=== PATIENT | female | born 1975 | race Hispanic/Latino ===

== ENCOUNTER 2019-01-26 12:47 | Inpatient (IN) | payer OTHER ==
[~2019-01-26] VITALS: Ht 152.4 cm; Wt 104.6 kg
--- OUTSIDE RECORDS SUMMARY | 2019-01-26 12:50 | XMS REPORT | Clinical Summary ---
Author Author [facility] Address Unknown Phone Unavailable Care Team Providers Care Aviation Ordnance Officer Name Role Phone Asked, No Pcp PCP Unavailable Allergies No Known Allergies Medications End Date Status Medication Sig Dispensed Refills Start Date Active mesalamine (ASACOL) 800 Take 1,600 mg 0 mg EC tablet by mouth 3 (three) times a day. Active cholecalciferol, vitamin Take by mouth 0 D3, (VITAMIN D3) 5,000 Once in unit tablet dialysis. Active aspirin (ECOTRIN) 81 MG Take 81 mg by 0 enteric coated tablet mouth daily. Active icosapent ethyl 1 gram Take 2 g by 0 capsule mouth 2 (two) times a day. Active magnesium amino acid Take by mouth 0 chelate 100 mg tablet once. Active acetaminophen (TYLENOL) Take 500 mg 0 500 MG tablet by mouth as needed for mild pain. Active budesonide (UCERIS) 9 mg Take 9 mg by 0 tablet, delayed & mouth daily. ext.release Active THEANINE ORAL Take 100 mg 0 by mouth. Active Problems Not on file Family History Medical History Relation Name Comments Hyperlipidemia Father Hypertension Father Hyperlipidemia Mother Hypertension Mother Relation Name Status Comments Father Mother Social History Date Tobacco Use Types Packs/Day Years Used Never Smoker Smokeless Tobacco: Never Used Alcohol Use Drinks/Week oz/Week Comments Yes social Sex Assigned at Date Recorded Not on file Industry Job Start Date Occupation Not on file Not on file Not on file Travel End Travel History Travel Start No recent travel history available. Last Filed Vital Signs Not on file Plan of Treatment Not on file Results Not on fileafter 01/25/2018 Insurance Payer Benefit Subscriber ID Type Phone Address Plan / Group AETNA AET[employer] PPO xxxxxxxxxx PPO OPEN CHOICE Advance Directives Patient has advance care planning documents on file. For more information, ai e contact: Robert Elaine [phone] [place] [address]
--- OUTSIDE RECORDS SUMMARY | 2019-01-26 12:51 | XMS REPORT | Summary of Care ---
Author Author [facility] Organization [facility] Address Unknown Phone Unavailable Encounter [facility]) [id number] Date(s): 07/12/16 - 07/21/16 [facility] [address] [place] [address]- Discharge Disposition: Home or Self Care Attending Physician: Rene Lyle MD Admitting Physician: Rene Lyle MD Vital Signs 1 2 3 Most recent to oldest [Reference Range]: 152.4 cm (07/12/16 5:31 PM) 152.4 cm (07/12/16 8:23 AM) Height 78.409 kg (07/16/16 7:24 AM) 80.001 kg (07/15/16 6:56 AM) 79.4 kg (07/14/16 5:29 AM) Current Weight 98.8 DegF (07/21/16 7:49 PM) 98.4 DegF (07/21/16 6:26 PM) 98.8 DegF (07/21/16 12:24 PM) Temperature Oral [96.4-99.1 DegF] 93/63 mmHg (07/21/16 7:49 PM) 93/60 mmHg (07/21/16 6:26 PM) 103/61 mmHg (07/21/16 12:24 PM) Blood Pressure [90-140/60-90 mmHg] 18 BRMIN (07/21/16 7:49 PM) 20 BRMIN (07/21/16 6:26 PM) 20 BRMIN (07/21/16 12:24 PM) Respiratory Rate [14-20 BRMIN] 103 bpm *HI* (07/21/16 7:49 PM) 99 bpm (07/21/16 6:26 PM) 131 bpm *HI* (07/21/16 12:24 PM) Peripheral Pulse Rate [60-100 bpm] 77.273 kg (07/12/16 5:31 PM) 77.273 kg (07/12/16 8:23 AM) Weight 33.27 m2 (07/12/16 5:31 PM) 33.27 m2 (07/12/16 8:23 AM) Body Mass Index Problem List Condition Effective Dates Status Health Status Informant Acute ulcerative Active colitis(Confirmed) Asthma(Confirmed) Resolved Clostridium 07/12/16 Active difficile(Confirmed) 1, 2 Dehydration(Confirme Active d) GERD Resolved (gastroesophageal reflux disease)(Confirmed) Colitis(Confirmed) Resolved Pain(Confirmed) 04/29/12 Active 1STOOL. 07/12/2016 2Problem added by Discern Expert. Allergies, Adverse Reactions, Alerts Substance Reaction Severity Status NKDA Active Medications acetaminophen 650 mg, 2 tab, Route: PO, Drug form: TAB, Q4H, Dosing Weight 77.273, kg, PRN For Temp > 100.4 F, Start date: 07/12/16 16:48:00 CDT, Duration: 30 day, Stop date: 08/11/16 16:47:00 CDT Notes: Do not exceed 4 gm/day. (Same as: Tylenol) Start Date: 07/12/16 Stop Date: 07/14/16 Status: Discontinued acetaminophen-codeine 300 mg-30 mg oral tablet 2 tab, PO, TID, PRN for pain, # 56 tab, 0 Refill(s) Start Date: 07/12/16 Stop Date: 07/21/16 Status: Discontinued acetaminophen-codeine 300 mg-30 mg oral tablet 2 tab, Route: PO, Drug Form: TAB, Dosing Weight 77.273, kg, Q6H, PRN Pain Score 4-6, Start date: 07/14/16 9:44:00 CDT, Duration: 30 day, Stop date: 08/13/16 9:4 3:00 CDT Notes: Do not exceed 4gm/day of acetaminophen. (Same as: Tylenol with Codeine # 3) Start Date: 07/14/16 Stop Date: 07/14/16 Status: Discontinued albuterol-ipratropium 2.5-0.5 mg inhalation solution 3 ml, Route: NEB, Drug Form: SOLN, Dosing Weight 77.273, kg, RQ4H, PRN Wheezing, Start date: 07/12/16 16:48:00 CDT, Duration: 30 day, Stop date: 08/11/16 16:47: 00 CDT Notes: (Same as: Duoneb) Start Date: 07/12/16 Stop Date: 07/14/16 Status: Discontinued Anusol-HC 2.5% rectal cream with applicator 1 appl, Route: TN, BID, Drug form: CRM/A, PRN Hemorrhoids, Start date: 07/14/16 11:14:00 CDT, Duration: 30 day, Stop date: 08/13/16 11:13:00 CDT Notes: (Same as: Anusol-HC, Proctosol-HC) Start Date: 07/14/16 Stop Date: 07/16/16 Status: Discontinued Asacol HD 1,600 mg, 2 tab, Route: PO, Drug form: ECTAB, TID, Dosing Weight 77.273, kg, Sta rt date: 07/20/16 14:00:00 CDT, Duration: 30 day, Stop date: 08/19/16 13:00:00 C DT Notes: (Same as: Asacol HD)(Do not crush) Start Date: 07/20/16 Stop Date: 07/21/16 Status: Discontinued Ativan 0.5 mg, 0.25 mL, Route: IM, Drug form: INJ, Q6H, Dosing Weight 77.273, kg, PRN A nxiety, Start date: 07/14/16 11:26:00 CDT, Duration: 30 day, Stop date: 08/13/16 11:25:00 CDT Notes: (Same as: Ativan) Start Date: 07/14/16 Stop Date: 07/21/16 Status: Discontinued BD Normal Saline Flush 10 mL, Route: IVP, Drug Form: INJ, PRN, PRN Line Flush, Start date: 07/18/16 16: 22:00 CDT, Duration: 30 day, Stop date: 08/17/16 16:21:00 CDT Notes: (Same as: BD Posiflush) Start Date: 07/18/16 Stop Date: 07/21/16 Status: Discontinued BD Normal Saline Flush 10 mL, Route: IVP, Drug Form: INJ, PRN, PRN Line Flush, Start date: 07/12/16 17: 07:00 CDT, Duration: 30 day, Stop date: 08/11/16 17:06:00 CDT Notes: (Same as: BD Posiflush) Start Date: 07/12/16 Stop Date: 07/12/16 Status: Discontinued calcium carbonate 500 mg (200 mg elemental calcium) oral tablet 500 mg, 1 tab, Route: PO, Drug form: CHEWTAB, PRN, Dosing Weight 77.273, kg, PRN Abnormal Lab Result, FOR ICU USE ONLY, Start date: 07/12/16 16:48:00 CDT, Durat ion: 30 day, Stop date: 08/11/16 16:47:00 CDT Notes: (Same As: Oli)Calcium Carbonate 500 gt=060 mg elemental calcium Dose=_ mg calcium carbonate ( mg elemental calcium) Start Date: 07/12/16 Stop Date: 07/16/16 Status: Discontinued calcium carbonate 500 mg (200 mg elemental calcium) oral tablet 1,000 mg, 2 tab, Route: PO, Drug form: CHEWTAB, PRN, Dosing Weight 77.273, kg, P RN Abnormal Lab Result, FOR ICU USE ONLY, Start date: 07/12/16 16:48:00 CDT, Dur ation: 30 day, Stop date: 08/11/16 16:47:00 CDT Notes: (Same As: Oli)Calcium Carbonate 500 hn=046 mg elemental calcium Dose=_ mg calcium carbonate ( mg elemental calcium) Start Date: 07/12/16 Stop Date: 07/16/16 Status: Discontinued calcium chloride 1,000 mg, 100 mL, Route: IVPB, Drug form: INJ, ONCE, Dosing Weight 77.273, kg, S tart date: 07/17/16 11:47:00 CDT, Stop date: 07/17/16 11:47:00 CDT Notes: WASTE: F/P - Sink; E - Municipal Trash Bin Start Date: 07/17/16 Stop Date: 07/17/16 Status: Completed calcium gluconate 1 gm, 50 mL, Route: IVPB, Drug form: INJ, PRN, Dosing Weight 77.273, kg, PRN Abn ormal Lab Result, Start date: 07/12/16 16:48:00 CDT, Duration: 30 day, Stop date : 08/11/16 16:47:00 CDT, FOR ICU USE ONLY Notes: WASTE: F/P - Sink; E - Municipal Trash Bin Start Date: 07/12/16 Stop Date: 07/16/16 Status: Discontinued D5W 1/2NS + KCL 20mEq/L 1000ml (Premix) 1,000 mL 1,000 mL, Rate: 125 ml/hr, Infuse over: 8 hr, Route: IV, Dosing Weight 77.273 kg , Total Volume: 1,000, Start date: 07/12/16 13:36:00 CDT, Stop date: 07/16/16 23 :00:00 CDT Notes: PREMIX IV - Do Not AlterWASTE: F/P - Sink; E - Municipal Trash Bin Start Date: 07/12/16 Stop Date: 07/16/16 Status: Completed Dilaudid 1 mg, Route: IVP, ONCE, Dosing Weight 77.273, kg, Priority: STAT, Start date: 15:07:00 CDT, Stop date: 07/12/16 15:07:00 CDT Start Date: 07/12/16 Stop Date: 07/12/16 Status: Completed DO NOT GIVE NARCOTICS DO NOT GIVE NARCOTICS, 1, Drug form: MISC, Route: IV, ONCALL, 07/16/16 10:00:00 CDT, Duration: 30 day, Stop date: 08/15/16 9:59:00 CDT Start Date: 07/16/16 Stop Date: 07/21/16 Status: Discontinued famotidine 20 mg, 2 mL, Route: IVP, Drug form: INJ, Q12H, Dosing Weight 77.273, kg, Start d ate: 07/12/16 21:00:00 CDT, Duration: 30 day, Stop date: 08/11/16 9:00:00 CDT Notes: (Same as: Pepcid)Can be dilute in 5-10cc NS IVP: Slow IV push over at le ast 2 minutes. Start Date: 07/12/16 Stop Date: 07/14/16 Status: Discontinued Flagyl 500 mg, 100 mL, Route: IVPB, Drug form: INJ, ONCE, Dosing Weight 77.273, kg, Darcie ority: STAT, Start date: 07/12/16 12:49:00 CDT, Stop date: 07/12/16 12:49:00 CDT Notes: (Same as: Flagyl) Avoid alcohol. Start Date: 07/12/16 Stop Date: 07/12/16 Status: Completed Flagyl 500 mg, 100 mL, Route: IVPB, Drug form: INJ, ABXQ8H, Dosing Weight 77.273, kg, S tart date: 07/14/16 15:00:00 CDT, Duration: 30 day, Stop date: 08/13/16 7:00:00 CDT Notes: (Same as: Flagyl) Avoid alcohol. Start Date: 07/14/16 Stop Date: 07/19/16 Status: Discontinued Flagyl 500 mg, 100 mL, Route: IVPB, Drug form: INJ, ABXQ8H, Dosing Weight 77.273, kg, S tart date: 07/12/16 14:00:00 CDT, Duration: 30 day, Stop date: 08/11/16 6:00:00 CDT Notes: (Same as: Flagyl) Avoid alcohol. Start Date: 07/12/16 Stop Date: 07/12/16 Status: Discontinued Flagyl 500 mg, 1 tab, Route: PO, Drug form: TAB, ABXQ8H, Dosing Weight 77.273, kg, Star t date: 07/19/16 14:00:00 CDT, Duration: 30 day, Stop date: 08/18/16 6:00:00 CDT Notes: (Same as: Flagyl) Take with food/ avoid alcohol Start Date: 07/19/16 Stop Date: 07/21/16 Status: Discontinued Flagyl 500 mg oral tablet 500 mg=1 tab, PO, Q8H, X 7 day, # 21 tab, 0 Refill(s) Start Date: 07/21/16 Stop Date: 07/28/16 Status: Ordered Fleet Enema 133 mL, Route: TN, Drug Form: SHAYLEE, ONCE, Start date: 07/14/16 9:31:00 CDT, Stop date: 07/14/16 9:31:00 CDT Start Date: 07/14/16 Stop Date: 07/14/16 Status: Completed heparin 5,000 unit, 1 mL, Route: SUB-Q, Drug form: INJ, Q8H, Dosing Weight 77.273, kg, S tart date: 07/12/16 17:11:00 CDT, Duration: 30 day, Stop date: 08/11/16 16:00:00 CDT Notes: porcine heparin Start Date: 07/12/16 Stop Date: 07/21/16 Status: Discontinued hydrocortisone 2.5% rectal cream with applicator 1 appl, Route: TN, TID, Drug form: CRM/A, Start date: 07/14/16 20:30:00 CDT, Dur ation: 30 day, Stop date: 08/13/16 17:00:00 CDT Notes: (Same as: Anusol-HC, Proctosol-HC) Start Date: 07/14/16 Stop Date: 07/21/16 Status: Discontinued hydromorphone 1 mg, 1 mL, Route: IVP, Drug form: INJ, Q2H, PRN Pain Score 6-10, Start date: 19:49:00 CDT, Duration: 30 day, Stop date: 08/11/16 19:48:00 CDT Start Date: 07/12/16 Stop Date: 07/14/16 Status: Discontinued hydromorphone 0.5 mg, 0.5 mL, Route: IVP, Drug form: INJ, Q4H, PRN Pain Score 7-10, Start date : 07/16/16 3:38:00 CDT, Duration: 30 day, Stop date: 08/15/16 3:37:00 CDT Start Date: 07/16/16 Stop Date: 07/16/16 Status: Discontinued hyoscyamine 0.125 mg sublingual tablet 0.125 mg=1 tab, SL, Q6H, PRN Spasms, # 30 tab, 0 Refill(s) Start Date: 07/12/16 Stop Date: 07/21/16 Status: Discontinued [id number] 10 mEq, 100 mL, Route: IVPB, Drug form: INJ, Q1H, Dosing Weight 77.273, kg, PRN Other -See Comment, Start date: 07/12/16 13:36:00 CDT, Duration: 4 doses or time s, Stop date: Limited # of times Notes: Infuse at a rate of 10 mEq/hr.(Same as: KCL) Start Date: 07/12/16 Stop Date: 07/16/16 Status: Discontinued ketOROLAC 30 mg, Route: IVP, Drug form: INJ, ONCE, Dosing Weight 77.273, kg, Priority: STA T, Start date: 07/12/16 9:56:00 CDT, Stop date: 07/12/16 9:56:00 CDT Start Date: 07/12/16 Stop Date: 07/12/16 Status: Completed lactulose 30 gm, 45 mL, Route: PO, Drug form: SYRP, ONCE, Start date: 07/14/16 9:27:00 CDT , Stop date: 07/14/16 9:27:00 CDT Notes: (Same as:Chronulac) Start Date: 07/14/16 Stop Date: 07/14/16 Status: Completed Levaquin 750 mg, 150 mL, Route: IVPB, Drug form: SOLN, ONCE, Dosing Weight 77.273, kg, St art date: 07/12/16 12:50:00 CDT, Stop date: 07/12/16 12:50:00 CDT Notes: (Same as:Levaquin) Start Date: 07/12/16 Stop Date: 07/12/16 Status: Discontinued levofloxacin 750 mg, 150 mL, Route: IVPB, Drug form: SOLN, [id number], Dosing Weight 77.273, kg, For CrCl > 49ml/min, Start date: 07/13/16 21:00:00 CDT, Duration: 30 day, Stop date: 08/11/16 21:00:00 CDT Notes: (Same as:Levaquin) Start Date: 07/13/16 Stop Date: 07/14/16 Status: Discontinued magnesium oxide 800 mg, 2 tab, Route: PO, Drug form: TAB, PRN, Dosing Weight 77.273, kg, PRN Abn ormal Lab Result, FOR ICU USE ONLY, Start date: 07/12/16 16:48:00 CDT, Duration: 30 day, Stop date: 08/11/16 16:47:00 CDT Notes: (Same as: Mag-Ox 400)Magnesium oxide [id number] elemental magnesiumDose= ____mg magnesium oxide (___mg elemental magnesium) Start Date: 07/12/16 Stop Date: 07/16/16 Status: Discontinued magnesium sulfate 2 gm, 50 mL, Route: IVPB, Drug form: INJ, PRN, Dosing Weight 77.273, kg, PRN Abn ormal Lab Result, Start date: 07/12/16 16:48:00 CDT, Duration: 30 day, Stop date : 08/11/16 16:47:00 CDT, FOR ICU USE ONLY Notes: WASTE: F/P - Sink; E - Municipal Trash Bin Start Date: 07/12/16 Stop Date: 07/16/16 Status: Discontinued mesalamine 800 mg oral enteric coated tablet 1,600 mg=2 tab, PO, TID, 0 Refill(s) Start Date: 07/21/16 Status: Ordered methylPREDNISolone SODium SUCCinate 40 mg, 1 mL, Route: IVP, Drug form: INJ, Q12H, Dosing Weight 77.273, kg, Start d ate: 07/12/16 21:00:00 CDT, Duration: 30 day, Stop date: 08/11/16 9:00:00 CDT Notes: (Same as:Solu-MEDROL, A-Methapred) Start Date: 07/12/16 Stop Date: 07/17/16 Status: Discontinued metroNIDAZOLE 500 mg, 100 mL, Route: IVPB, Drug form: INJ, Q6H, Dosing Weight 77.273, kg, Star t date: 07/13/16 15:00:00 CDT, Duration: 30 day, Stop date: 08/12/16 9:00:00 CDT Notes: (Same as: Mena) Avoid alcohol. Start Date: 07/13/16 Stop Date: 07/14/16 Status: Discontinued metroNIDAZOLE 500 mg oral tablet 500 mg, 1 tab, Route: PO, Drug form: TAB, ABXQ6H, Dosing Weight 77.273, kg, Prio rity: STAT, Start date: 07/12/16 21:35:00 CDT, Duration: 14 day, Stop date: 07/17 16:00:00 CDT Notes: (Same as: Mena) Take with food/ avoid alcohol Start Date: 07/12/16 Stop Date: 07/13/16 Status: Discontinued morphine Sulfate 4 mg, Route: IVP, ONCE, Dosing Weight 77.273, kg, Priority: STAT, Start date: 9:56:00 CDT, Stop date: 07/12/16 9:56:00 CDT Start Date: 07/12/16 Stop Date: 07/12/16 Status: Completed morphine Sulfate 1 mg, 0.5 mL, Route: IVP, Drug form: INJ, Q2H, Dosing Weight 77.273, kg, PRN Jessy n Score 1-3, Start date: 07/12/16 17:47:00 CDT, Duration: 30 day, Stop date: 17:46:00 CDT Notes: (Same as:MORPhine Sulfate) Start Date: 07/12/16 Stop Date: 07/14/16 Status: Discontinued morphine Sulfate 5 mg, 2.5 mL, Route: IVP, Drug form: INJ, Q2H, Dosing Weight 77.273, kg, PRN Jessy n Score 7-10, Start date: 07/12/16 17:47:00 CDT, Duration: 30 day, Stop date: 17:46:00 CDT Notes: (Same as:MORPhine Sulfate) Start Date: 07/12/16 Stop Date: 07/14/16 Status: Discontinued morphine Sulfate 4 mg, 1 mL, Route: IVP, Drug form: INJ, ONCE, Dosing Weight 77.273, kg, Priority : STAT, Start date: 07/12/16 8:47:00 CDT, Stop date: 07/12/16 8:47:00 CDT Notes: (Same as:MORPhine Sulfate) Start Date: 07/12/16 Stop Date: 07/12/16 Status: Completed morphine Sulfate 2 mg, 1 mL, Route: IVP, Drug form: INJ, Q2H, Dosing Weight 77.273, kg, PRN Pain Score 4-6, Start date: 07/12/16 17:47:00 CDT, Duration: 30 day, Stop date: 08/11 17:46:00 CDT Notes: (Same as:MORPhine Sulfate) Start Date: 07/12/16 Stop Date: 07/14/16 Status: Discontinued Neutra-Phos 2 pkt, Route: PO, Drug Form: PDR/REC, Dosing Weight 77.273, kg, PRN, PRN Abnorma l Lab Result, FOR ICU USE ONLY, Start date: 07/12/16 16:48:00 CDT, Duration: 30 day, Stop date: 08/11/16 16:47:00 CDT Notes: (Same as: Neutra-Phos) Each 1.25 gm pkt has 250mg phosphorous. Mix w/2.5 oz water and stir. Start Date: 07/12/16 Stop Date: 07/16/16 Status: Discontinued NS (Bolus) IV 1,000 mL, 1,000 ml/hr, Infuse Over: 1 hr, Route: IV, 1,000, Drug form: INJ, ONCE , Priority: STAT, Dosing Weight 77.273 kg, Start date: 07/12/16 12:49:00 CDT, Du ration: 1 doses or times, Stop date: 07/12/16 12:49:00 CDT Start Date: 07/12/16 Stop Date: 07/12/16 Status: Completed NS (Bolus) IV 1,000 mL, 1,000 ml/hr, Infuse Over: 1 hr, Route: IV, 1,000, Drug form: INJ, ONCE , Priority: STAT, Dosing Weight 77.273 kg, Start date: 07/15/16 12:49:00 CDT, Du ration: 1 doses or times, Stop date: 07/15/16 12:49:00 CDT Start Date: 07/15/16 Stop Date: 07/15/16 Status: Completed NS (Bolus) IV 1,000 mL, 1,000 ml/hr, Infuse Over: 1 hr, Route: IV, 1,000, Drug form: INJ, ONCE , Priority: STAT, Dosing Weight 77.273 kg, Start date: 07/17/16 10:58:00 CDT, Du ration: 1 doses or times, Stop date: 07/17/16 10:58:00 CDT Start Date: 07/17/16 Stop Date: 07/17/16 Status: Completed NS (Bolus) IV 1,000 mL, 1,000 ml/hr, Infuse Over: 1 hr, Route: IV, 1,000, Drug form: INJ, ONCE , Priority: STAT, Dosing Weight 77.273 kg, Start date: 07/12/16 13:34:00 CDT, Du ration: 1 doses or times, Stop date: 07/12/16 13:34:00 CDT Start Date: 07/12/16 Stop Date: 07/12/16 Status: Completed NS (Bolus) IV 1,000 mL, 1,000 ml/hr, Infuse Over: 1 hr, Route: IV, 1,000, Drug form: INJ, ONCE , Priority: STAT, Dosing Weight 77.273 kg, Start date: 07/16/16 9:42:00 CDT, Dur ation: 1 doses or times, Stop date: 07/16/16 9:42:00 CDT Start Date: 07/16/16 Stop Date: 07/16/16 Status: Completed Ofirmev 1,000 mg, 100 mL, Route: IV, Drug form: INJ, Q6H, PRN Other -See Comment, Start date: 07/16/16 19:02:00 CDT, Duration: 30 day, Stop date: 08/15/16 19:01:00 CDT Notes: Infuse over 15 minutesDo not exceed 4gm/day of acetaminophen MEDICAT ION WASTE Product Size: 1000 mgProduct Wasted: ___ mg Start Date: 07/16/16 Stop Date: 07/21/16 Status: Discontinued Ofirmev 1 gm, 100 mL, Route: IVPB, Drug form: INJ, ONCE, Start date: 07/16/16 8:37:00 CD T, Stop date: 07/16/16 8:37:00 CDT Notes: Infuse over 15 minutesDo not exceed 4gm/day of acetaminophen MEDICAT ION WASTE Product Size: 1000 mgProduct Wasted: ___ mg Start Date: 07/16/16 Stop Date: 07/16/16 Status: Completed Ofirmev 1,000 mg, 100 mL, Route: IV, Drug form: INJ, ONCE, Dosing Weight 77.273, kg, PRN Pain Score 6-10, for > or=50 kg, Start date: 07/14/16 11:32:00 CDT Notes: Infuse over 15 minutesDo not exceed 4gm/day of acetaminophen MEDICAT ION WASTE Product Size: 1000 mgProduct Wasted: ___ mg Start Date: 07/14/16 Stop Date: 07/15/16 Status: Completed ondansetron 4 mg, 2 mL, Route: IVP, Drug form: INJ, ONCE, Dosing Weight 77.273, kg, Priority : STAT, Start date: 07/12/16 8:47:00 CDT, Stop date: 07/12/16 8:47:00 CDT Notes: (Same as: Zoshivani) MEDICATION WASTE Product Size: 4 mgProduct Was susana: ___ mg Start Date: 07/12/16 Stop Date: 07/12/16 Status: Completed pantoprazole 40 mg, Route: IVP, Drug form: INJ, ONCE, Dosing Weight 77.273, kg, For IV push r econstitute with 10 ml 0.9% sodium chloride and push over at least 3 minutes, Pr iority: STAT, Start date: 07/12/16 8:47:00 CDT, Stop date: 07/12/16 8:47:00 CDT Notes: For IV push reconstitute with 10 ml 0.9% sodium chloride and push over 2 minutes. (Same as: Protonix) Start Date: 07/12/16 Stop Date: 07/12/16 Status: Completed Pepcid 20 mg, 2 mL, Route: IVP, Drug form: INJ, Q12H, Dosing Weight 77.273, kg, Start d ate: 07/14/16 9:00:00 CDT, Duration: 30 day, Stop date: 08/12/16 21:00:00 CDT Notes: (Same as: Pepcid)Can be dilute in 5-10cc NS IVP: Slow IV push over at le ast 2 minutes. Start Date: 07/14/16 Stop Date: 07/14/16 Status: Discontinued Pepcid 20 mg, 1 tab, Route: PO, Drug form: TAB, Q12H, Start date: 07/18/16 17:00:00 CDT , Duration: 30 day, Stop date: 08/17/16 9:00:00 CDT Notes: (Same as: Pepcid) Start Date: 07/18/16 Stop Date: 07/21/16 Status: Discontinued potassium chloride 20 mEq, 100 mL, Route: IVPB, Drug form: INJ, PRN, Dosing Weight 77.273, kg, PRN Abnormal Lab Result, Via central line, Start date: 07/12/16 16:48:00 CDT, Durati on: 30 day, Stop date: 08/11/16 16:47:00 CDT, FOR ICU USE ONLY Notes: (Same as: KCL) Infuse no faster than 10 mEq/hr if given peripherally. Start Date: 07/12/16 Stop Date: 07/16/16 Status: Discontinued potassium chloride 20 mEq, 1 tab, Route: PO, Drug form: ERTAB, PRN, Dosing Weight 77.273, kg, PRN A bnormal Lab Result, Start date: 07/12/16 16:48:00 CDT, Duration: 30 day, Stop da te: 08/11/16 16:47:00 CDT, FOR ICU USE ONLY Notes: (Same as: K-Dur 20)"Do Not Crush" With food and full glass of water Start Date: 07/12/16 Stop Date: 07/16/16 Status: Discontinued potassium chloride 20 mEq, 15 mL, Route: NJ, Drug form: LIQ, PRN, Dosing Weight 77.273, kg, PRN Abn ormal Lab Result, Start date: 07/12/16 16:48:00 CDT, Duration: 30 day, Stop date : 08/11/16 16:47:00 CDT, FOR ICU USE ONLY Notes: (Same as: Potassium Chloride) Start Date: 07/12/16 Stop Date: 07/16/16 Status: Discontinued potassium chloride 10 mEq, 100 mL, Route: IVPB, Drug form: INJ, PRN, Dosing Weight 77.273, kg, PRN Abnormal Lab Result, Via peripheral line, Start date: 07/12/16 16:48:00 CDT, Dur ation: 30 day, Stop date: 08/11/16 16:47:00 CDT, FOR ICU USE ONLY Notes: Infuse at a rate of 10 mEq/hr.(Same as: KCL) Start Date: 07/12/16 Stop Date: 07/16/16 Status: Discontinued potassium chloride 20 mEq oral tablet, extended release 40 mEq, 2 tab, Route: PO, Drug form: ERTAB, ONCE, Dosing Weight 77.273, kg, Prio rity: STAT, Start date: 07/12/16 9:28:00 CDT, Stop date: 07/12/16 9:28:00 CDT Notes: (Same as: K-Dur 20)"Do Not Crush" With food and full glass of water Start Date: 07/12/16 Stop Date: 07/12/16 Status: Completed potassium phosphate 15 mmol, 250 mL, Route: IVPB, Drug form: INJ, PRN, Dosing Weight 77.273, kg, PRN Abnormal Lab Result, Start date: 07/12/16 16:48:00 CDT, Duration: 30 day, Stop date: 08/11/16 16:47:00 CDT, FOR ICU USE ONLY Notes: (Same as: K Phosphate) Start Date: 07/12/16 Stop Date: 07/16/16 Status: Discontinued potassium phosphate 30 mmol, 250 mL, Route: IVPB, Drug form: INJ, PRN, Dosing Weight 77.273, kg, PRN Abnormal Lab Result, Start date: 07/12/16 16:48:00 CDT, Duration: 30 day, Stop date: 08/11/16 16:47:00 CDT, FOR ICU USE ONLY Notes: (Same as: K Phosphate.) Start Date: 07/12/16 Stop Date: 07/16/16 Status: Discontinued potassium phosphate + sodium chloride 0.9% INJ 250 mL 45 mmol, 15 mL, Route: IVPB, PRN, Dosing Weight 77.273, kg, PRN Abnormal Lab Res ult, Start date: 07/12/16 16:48:00 CDT, Duration: 30 day, Stop date: 08/11/16 16 :47:00 CDT, FOR ICU USE ONLY Notes: (Same as: K Phosphate.) 1 mMol phoshate has 1.47 mEq potassium Infuse o jose 4 hours Start Date: 07/12/16 Stop Date: 07/16/16 Status: Discontinued predniSONE 20 mg oral tablet 20 mg=1 tab, PO, Daily, # 7 tab, 0 Refill(s) Start Date: 07/12/16 Stop Date: 07/21/16 Status: Discontinued Preparation H rectal ointment Route: TN, TID, Start date: 07/14/16 17:00:00 CDT, Duration: 30 day, Stop date: 08/13/16 13:00:00 CDT Start Date: 07/14/16 Stop Date: 07/14/16 Status: Discontinued Saline Flush 0.9% 10 ml, Route: IVP, Drug Form: INJ, Dosing Weight 77.273, kg, PRN, PRN Line Flush , Start date: 07/12/16 16:48:00 CDT, Duration: 30 day, Stop date: 08/11/16 16:47 :00 CDT Notes: (Same as: BD Posiflush) Start Date: 07/12/16 Stop Date: 07/16/16 Status: Discontinued Saline Flush 0.9% 10 ml, Route: IVP, Drug Form: INJ, Dosing Weight 77.273, kg, Q12H, Start date: 0 07/12/16 21:00:00 CDT, Duration: 30 day, Stop date: 08/11/16 9:00:00 CDT Notes: (Same as: BD Posiflush) Start Date: 07/12/16 Stop Date: 07/16/16 Status: Discontinued Sodium Chloride 0.9% (Bolus) IV 1,000 mL, 1,000 ml/hr, Infuse Over: 1 Hour, Route: IV, ONCE, Priority: STAT, Dos ing Weight 77.273 kg, Start date: 07/12/16 13:11:00 CDT, Duration: 1 doses or ti mes, Stop date: 07/12/16 13:11:00 CDT Start Date: 07/12/16 Stop Date: 07/12/16 Status: Completed Sodium Chloride 0.9% IV 250 mL, Route: IVPB, Start date: 07/18/16 16:22:00 CDT, Duration: 30 day, Stop d ate: 08/17/16 16:21:00 CDT, PRN Line Flush Start Date: 07/18/16 Stop Date: 07/21/16 Status: Discontinued Sodium Chloride 0.9% IV 250 mL, Route: IVPB, Start date: 07/12/16 17:07:00 CDT, Duration: 30 day, Stop d ate: 08/11/16 17:06:00 CDT, PRN Line Flush Start Date: 07/12/16 Stop Date: 07/16/16 Status: Discontinued sodium phosphate 30 mmol, 250 mL, Route: IVPB, Drug form: INJ, PRN, Dosing Weight 77.273, kg, PRN Abnormal Lab Result, Start date: 07/12/16 16:48:00 CDT, Duration: 30 day, Stop date: 08/11/16 16:47:00 CDT, FOR ICU USE ONLY Start Date: 07/12/16 Stop Date: 07/16/16 Status: Discontinued sodium phosphate 15 mmol, 250 mL, Route: IVPB, Drug form: INJ, PRN, Dosing Weight 77.273, kg, PRN Abnormal Lab Result, Start date: 07/12/16 16:48:00 CDT, Duration: 30 day, Stop date: 08/11/16 16:47:00 CDT, FOR ICU USE ONLY Start Date: 07/12/16 Stop Date: 07/16/16 Status: Discontinued sodium phosphate + sodium chloride 0.9% INJ 250 mL 45 mmol, 15 mL, Route: IVPB, PRN, Dosing Weight 77.273, kg, PRN Abnormal Lab Res ult, Start date: 07/12/16 16:48:00 CDT, Duration: 30 day, Stop date: 08/11/16 16 :47:00 CDT, FOR ICU USE ONLY Start Date: 07/12/16 Stop Date: 07/16/16 Status: Discontinued Solu-MEDROL 125 mg, 2 mL, Route: IVP, Drug form: INJ, ONCE, Dosing Weight 77.273, kg, Priori ty: STAT, Start date: 07/12/16 9:39:00 CDT, Stop date: 07/12/16 9:39:00 CDT Notes: (Same as:Solu-MEDROL, A-Methapred) Start Date: 07/12/16 Stop Date: 07/12/16 Status: Completed Sublimaze 25 microgram, 0.5 mL, Route: IVP, Drug form: INJ, ONCE, Start date: 07/16/16 4:5 1:00 CDT, Stop date: 07/16/16 4:51:00 CDT Notes: (Same as: Sublimaze) Preservative free. Start Date: 07/16/16 Stop Date: 07/16/16 Status: Completed TPN solution, adult 1,850 mL 1,850 mL, Rate: 75 ml/hr, Infuse over: 24.7 hr, Route: IV, Dosing Weight 77.273 kg, Total Volume: 1,850, Start date: 07/16/16 22:00:00 CDT, Stop date: 07/20/16 23:59:00 CDT Notes: Per hospital policy, bag must be changed every 24hr. Start Date: 07/16/16 Stop Date: 07/20/16 Status: Completed tramadol 50 mg oral tablet 50 mg=1 tab, PO, Q8H, PRN Pain, # 60 tab, 0 Refill(s) Start Date: 07/12/16 Stop Date: 07/21/16 Status: Discontinued vancomycin 500 mg, 10 mL, Route: PO, Drug form: SOLN, ABXQ6H, Dosing Weight 77.273, kg, Sta rt date: 07/20/16 10:00:00 CDT, Duration: 30 day, Stop date: 08/19/16 4:00:00 CD T Notes: TIME CRITICAL MEDICATION(Same: as Vancocin)For oral use only Start Date: 07/20/16 Stop Date: 07/21/16 Status: Discontinued vancomycin 500 mg, 10 mL, Route: PO, Drug form: SOLN, ABXQ6H, Dosing Weight 77.273, kg, Darcie ority: STAT, Start date: 07/12/16 21:35:00 CDT, Duration: 7 day, Stop date: 12/30 16:00:00 CDT Notes: TIME CRITICAL MEDICATION(Same: as Vancocin)For oral use only Start Date: 07/12/16 Stop Date: 07/12/16 Status: Deleted vancomycin 500 mg, 10 mL, Route: PO, Drug form: SOLN, ABXQ6H, Start date: 07/12/16 23:00:00 CDT, Stop date: 07/19/16 17:00:00 CDT Notes: TIME CRITICAL MEDICATION(Same: as Vancocin)For oral use only Start Date: 07/12/16 Stop Date: 07/19/16 Status: Completed vancomycin 250 mg oral capsule 500 mg=2 cap, PO, Q6H, X 7 day, # 56 cap, 0 Refill(s) Start Date: 07/21/16 Stop Date: 07/28/16 Status: Ordered vancomycin 500 mg/NS 100mL ENEMA 500 mg, Route: TN, Drug Form: SHAYLEE, Dosing Weight 77.273, kg, ABXQ6H, Start date : 07/14/16 15:00:00 CDT, Duration: 30 day, Stop date: 08/13/16 9:00:00 CDT Notes: TIME CRITICAL MEDICATIONFOR ENEMAretention enema for c.diff. Start Date: 07/14/16 Stop Date: 07/21/16 Status: Discontinued Zantac 150 mg, 10 mL, Route: PO, Drug form: SYRP, Q12H, Start date: 07/14/16 9:00:00 CD T, Duration: 30 day, Stop date: 08/12/16 21:00:00 CDT Notes: (Same as:Zantac)Non-Formulary Item Take before or with meals Start Date: 07/14/16 Stop Date: 07/14/16 Status: Deleted Zantac 150 150 mg, Route: PO, Drug form: TAB, BID, Dosing Weight 77.273, kg, Start date: 17:00:00 CDT, Duration: 30 day, Stop date: 08/17/16 9:00:00 CDT Start Date: 07/18/16 Stop Date: 07/18/16 Status: Deleted Zofran 4 mg, 2 mL, Route: IVP, Drug form: INJ, Q6H, PRN Nausea & Vomiting, Start date: 07/13/16 16:22:00 CDT, Duration: 30 day, Stop date: 08/12/16 16:21:00 CDT Notes: (Same as: Zofran) MEDICATION WASTE Product Size: 4 mgProduct Was susana: __0_ mg Start Date: 07/13/16 Stop Date: 07/21/16 Status: Discontinued Zofran 4 mg, 2 mL, Route: IVP, Drug form: INJ, Q6H, Start date: 07/13/16 22:30:00 CDT, Duration: 30 day, Stop date: 08/12/16 16:30:00 CDT Notes: (Same as: Zofran) MEDICATION WASTE Product Size: 4 mgProduct Was susana: 0___ mg Start Date: 07/13/16 Stop Date: 07/16/16 Status: Discontinued Zofran 4 mg, 2 mL, Route: IVP, Drug form: INJ, Q8H, Dosing Weight 77.273, kg, PRN Nause a, Start date: 07/13/16 11:03:00 CDT, Duration: 30 day, Stop date: 08/12/16 11:0 2:00 CDT Notes: (Same as: Zofran) MEDICATION WASTE Product Size: 4 mgProduct Was susana: ___ mg Start Date: 07/13/16 Stop Date: 07/13/16 Status: Discontinued Zofran 4 mg, 2 mL, Route: IVP, Drug form: INJ, Q8H, Dosing Weight 77.273, kg, PRN Nause a, Start date: 07/12/16 17:48:00 CDT, Duration: 30 day, Stop date: 08/11/16 17:4 7:00 CDT Notes: (Same as: Zofran) MEDICATION WASTE Product Size: 4 mgProduct Was susana: __0_ mg Start Date: 07/12/16 Stop Date: 07/13/16 Status: Discontinued Zosyn + sodium chloride 0.9% INJ 100 mL 3.375 gm, Route: IVPB, ABXQ8H, Dosing Weight 77.273, kg, CrCl >=20 ml/min infuse over 4 hours, Start date: 07/15/16 9:00:00 CDT, Duration: 30 day, Stop date: 08/14/16 1:00:00 CDT Notes: (Same as: Zosyn)Dosing based on Piperacillin component MEDICATION WA YULI Product Size: 3375 mgProduct Wasted: ___ mg Start Date: 07/15/16 Stop Date: 07/20/16 Status: Discontinued Zosyn + sodium chloride 0.9% INJ 100 mL 3.375 gm, Route: IVPB, ABXQ6H, Dosing Weight 77.273, kg, Priority: NOW, Start da te: 07/12/16 13:35:00 CDT, Duration: 30 day, Stop date: 08/11/16 7:35:00 CDT Notes: (Same as: Zosyn)Dosing based on Piperacillin component MEDICATION WA YULI Product Size: 3375 mgProduct Wasted: ___ mg Start Date: 07/12/16 Stop Date: 07/13/16 Status: Discontinued Results BLOOD BANK RESULTS 1 2 3 Most recent to oldest [Reference Range]: O POS *Unknown* (07/14/16 8:46 AM) ABO/Rh Negative (07/14/16 8:46 AM) Antibody Scrn Product available (07/14/16 8:05 AM) RBC product ELECTROLYTES 1 2 3 Most recent to oldest [Reference Range]: 140 mEq/L (07/19/16 3:42 AM) 139 mEq/L (07/18/16 5:28 AM) 138 mEq/L (07/17/16 5:22 AM) Sodium Lvl [135-145 mEq/L] 4.3 mEq/L (07/19/16 3:42 AM) 3.9 mEq/L (07/18/16 5:28 AM) 3.6 mEq/L (07/17/16 5:22 AM) Potassium Lvl [3.5-5.1 mEq/L] 108 mEq/L (07/19/16 3:42 AM) 106 mEq/L (07/18/16 5:28 AM) 106 mEq/L (07/17/16 5:22 AM) Chloride Lvl [95-109 mEq/L] 26 mEq/L (07/19/16 3:42 AM) 24 mEq/L (07/18/16 5:28 AM) 25 mEq/L (07/17/16 5:22 AM) CO2 [24-32 mEq/L] 10.3 mEq/L (07/19/16 3:42 AM) 12.9 mEq/L (07/18/16 5:28 AM) 10.6 mEq/L (07/17/16 5:22 AM) AGAP [10.0-20.0 mEq/L] CHEM PANEL 1 2 3 Most recent to oldest [Reference Range]: 0.60 mg/dL (07/19/16 3:42 AM) 0.60 mg/dL (07/18/16 5:28 AM) 0.60 mg/dL (07/17/16 5:22 AM) Creatinine Lvl [0.50-1.40 mg/dL] 114 mL/min/1.73m2 1 *NA* (07/19/16 3:42 AM) 114 mL/min/1.73m2 2 *NA* (07/18/16 5:28 AM) 114 mL/min/1.73m2 3 *NA* (07/17/16 5:22 AM) eGFR 7 mg/dL (07/19/16 3:42 AM) 4 mg/dL *LOW* (07/18/16 5:28 AM) 2 mg/dL *LOW* (07/17/16 5:22 AM) BUN [7-22 mg/dL] 12 (07/19/16 3:42 AM) 7 (07/18/16 5:28 AM) 3 *LOW* (07/17/16 5:22 AM) B/C Ratio [6-25] 98 mg/dL (07/19/16 3:42 AM) 120 mg/dL *HI* (07/18/16 5:28 AM) 107 mg/dL *HI* (07/17/16 5:22 AM) Glucose Lvl [70-99 mg/dL] 5.0 g/dL *LOW* (07/19/16 3:42 AM) 4.7 g/dL *LOW* (07/18/16 5:28 AM) 4.4 g/dL *LOW* (07/17/16 5:22 AM) Total Protein [6.4-8.4 g/dL] 1.8 g/dL *LOW* (07/19/16 3:42 AM) 1.6 g/dL *LOW* (07/18/16 5:28 AM) 1.5 g/dL *LOW* (07/17/16 5:22 AM) Albumin Lvl [3.5-5.0 g/dL] 3.2 g/dL (07/19/16 3:42 AM) 3.1 g/dL (07/18/16 5:28 AM) 2.9 g/dL (07/17/16 5:22 AM) Globulin [2.7-4.2 g/dL] 0.6 *LOW* (07/19/16 3:42 AM) 0.5 *LOW* (07/18/16 5:28 AM) 0.5 *LOW* (07/17/16 5:22 AM) A/G Ratio [0.7-1.6] 7.4 mg/dL *LOW* (07/19/16 3:42 AM) 7.2 mg/dL *LOW* (07/18/16 5:28 AM) 6.8 mg/dL 4 *CRIT* (07/17/16 10:03 AM) Calcium Lvl [8.5-10.5 mg/dL] 2.9 mg/dL (07/19/16 3:42 AM) 2.5 mg/dL (07/18/16 5:28 AM) 1.8 mg/dL *LOW* (07/17/16 5:22 AM) Phosphorus [2.5-4.5 mg/dL] 2.6 mg/dL *HI* (07/19/16 3:42 AM) 2.4 mg/dL (07/18/16 5:28 AM) 2.2 mg/dL (07/17/16 5:22 AM) Magnesium Lvl [1.8-2.4 mg/dL] 24 unit/L (07/19/16 3:42 AM) 17 unit/L (07/18/16 5:28 AM) 13 unit/L (07/17/16 5:22 AM) ALT [0-65 unit/L] 36 unit/L (07/19/16 3:42 AM) 26 unit/L (07/18/16 5:28 AM) 5 unit/L (07/17/16 5:22 AM) AST [0-37 unit/L] 71 unit/L (07/19/16 3:42 AM) 67 unit/L (07/18/16 5:28 AM) 63 unit/L (07/17/16 5:22 AM) Alk Phos [39-136 unit/L] 0.3 mg/dL (07/19/16 3:42 AM) 0.3 mg/dL (07/18/16 5:28 AM) 0.3 mg/dL (07/17/16 5:22 AM) Bili Total [0.2-1.3 mg/dL] <0.1 mg/dL (07/15/16 10:00 AM) <0.1 mg/dL (07/13/16 2:04 AM) Bili Direct [0.0-0.3 mg/dL] Unable to Calculate *NA* (07/15/16 10:00 AM) Unable to Calculate *NA* (07/13/16 2:04 AM) Bili Indirect [0.0-1.0] 71 unit/L *LOW* (07/12/16 8:51 AM) Lipase Lvl [73-393 unit/L] 2.0 mMol/L (07/15/16 3:55 AM) 1.4 mMol/L (07/14/16 8:46 AM) 2.3 mMol/L *HI* (07/13/16 4:15 AM) Lactic Acid Lvl [0.5-2.2 mMol/L] 0.08 ng/mL (07/19/16 3:42 AM) 0.19 ng/mL *HI* (07/18/16 5:28 AM) 0.30 ng/mL *HI* (07/17/16 5:22 AM) Procalcitonin Lvl [0.00-0.10 ng/mL] 1Result Comment: The eGFR is calculated using the CKD-EPI formula. In most young, healthy individuals the eGFR will be >90 mL/min/1.73m2. The eGFR declines with age. An eGFR of 60-89 may be normal in some populations, particularly the elderly, for whom the CKD-EPI formula has not been extensively validated. Use of the eGFR is not recommended in the following populations: Individuals with unstable creatinine concentrations, including patients and those with serious co-morbid conditions. Patients with extremes in muscle mass or diet. The data above are obtained from the National Kid[employer] Disease Education Program ( NK[employer]) which additionally recommends that when the eGFR is used in patients with extremes of body mass index for purposes of drug dosing, the eGFR should be mul tiplied by the estimated BMI. 2Result Comment: The eGFR is calculated using the CKD-EPI formula. In most young, healthy individuals the eGFR will be >90 mL/min/1.73m2. The eGFR declines with age. An eGFR of 60-89 may be normal in some populations, particularly the elderly, for whom the CKD-EPI formula has not been extensively validated. Use of the eGFR is not recommended in the following populations: Individuals with unstable creatinine concentrations, including patients and those with serious co-morbid conditions. Patients with extremes in muscle mass or diet. The data above are obtained from the National Kid[employer] Disease Education Program ( NK[employer]) which additionally recommends that when the eGFR is used in patients with extremes of body mass index for purposes of drug dosing, the eGFR should be mul tiplied by the estimated BMI. 3Result Comment: The eGFR is calculated using the CKD-EPI formula. In most young, healthy individuals the eGFR will be >90 mL/min/1.73m2. The eGFR declines with age. An eGFR of 60-89 may be normal in some populations, particularly the elderly, for whom the CKD-EPI formula has not been extensively validated. Use of the eGFR is not recommended in the following populations: Individuals with unstable creatinine concentrations, including patients and those with serious co-morbid conditions. Patients with extremes in muscle mass or diet. The data above are obtained from the National Kidney Disease Education Program ( NK[employer]) which additionally recommends that when the eGFR is used in patients with extremes of body mass index for purposes of drug dosing, the eGFR should be mul tiplied by the estimated BMI. 4Result Comment: Critical Result(s) called to jasmin resendiz at 07/17/2016 11:27 by cz. Read back OK. PARATHYROID PROFILE 1 2 3 Most recent to oldest [Reference Range]: 0.99 mMol/L *LOW* (07/17/16 10:03 AM) 0.97 mMol/L *LOW* (07/15/16 3:55 AM) 0.96 mMol/L *LOW* (07/14/16 6:37 PM) Ca Ion WB [1.05-1.25 mMol/L] 1.06 mMol/L (07/17/16 10:03 AM) 1.01 mMol/L *LOW* (07/15/16 3:55 AM) 1.00 mMol/L *LOW* (07/14/16 6:37 PM) Ca Norm WB [1.05-1.25 mMol/L] ENDOCRINOLOGY 1 2 3 Most recent to oldest [Reference Range]: Negative *NA* (07/12/16 8:51 AM) S Preg [Negative] URINE AND STOOL 1 2 3 Most recent to oldest [Reference Range]: Clear (07/13/16 3:56 PM) Slight Cloudy (07/12/16 8:51 AM) UA Turbidity [Clear] Light Yellow *NA* (07/13/16 3:56 PM) Yellow *NA* (07/12/16 8:51 AM) UA Color [Yellow] 5.0 (07/13/16 3:56 PM) UA pH [5.0-8.0] 6.0 (07/12/16 8:51 AM) UA pH [5.0-8.0] 1.006 (07/13/16 3:56 PM) >=1.030 *ABN* (07/12/16 8:51 AM) UA Spec Grav [<=1.030] Negative mg/dL *NA* (07/13/16 3:56 PM) UA Glucose [Negative mg/dL] Negative (07/12/16 8:51 AM) UA Glucose [Negative] Negative (07/13/16 3:56 PM) Moderate *ABN* (07/12/16 8:51 AM) UA Blood [Negative] Negative mg/dL *NA* (07/13/16 3:56 PM) UA Ketones [Negative mg/dL] Negative *NA* (07/12/16 8:51 AM) UA Ketones [Negative] Negative mg/dL (07/13/16 3:56 PM) 30 mg/dL *ABN* (07/12/16 8:51 AM) UA Protein [Negative mg/dL] <=1.0 mg/dL *NA* (07/13/16 3:56 PM) UA Urobilinogen [0.1-1.0 mg/dL] 1.0 EU/dL (07/12/16 8:51 AM) UA Urobilinogen [0.1-1.0 EU/dL] Negative *NA* (07/13/16 3:56 PM) Negative *NA* (07/12/16 8:51 AM) UA Bili [Negative] Negative (07/13/16 3:56 PM) Negative (07/12/16 8:51 AM) UA Leuk Est [Negative] Negative (07/13/16 3:56 PM) Positive *ABN* (07/12/16 8:51 AM) UA Nitrite [Negative] <1 /HPF (07/13/16 3:56 PM) UA WBC [0-5 /HPF] 3-5 /HPF (07/12/16 8:51 AM) UA WBC [None Seen /HPF] 0-2 /HPF (07/12/16 8:51 AM) UA RBC [0-2 /HPF] Many /HPF (07/12/16 8:51 AM) UA Bacteria [None Seen /HPF] Occasional /LPF *NA* (07/13/16 3:56 PM) Many /LPF *ABN* (07/12/16 8:51 AM) UA Sq Epi [Few /LPF] Moderate /HPF *ABN* (07/12/16 8:51 AM) UA CaOx Queta [None Seen /HPF] Positive *ABN* (07/12/16 3:48 PM) Occult Bld Stl [Negative] Many (07/12/16 3:48 PM) Fecal Leukocyte IMMUNOLOGY 1 2 3 Most recent to oldest [Reference Range]: NEGATIVE 1 *NA* (07/12/16 6:01 PM) ANCA [NEGATIVE] Negative *NA* (07/12/16 6:01 PM) HIV 1/2 Ab [Negative] <1.0 AI 2 *NA* (07/12/16 6:01 PM) Proteinase-3 Antibody [<1.0 AI] <1.0 AI 3 *NA* (07/12/16 6:01 PM) Myeloperoxidase Ab [<1.0 AI] 1Result Comment: ANCA SCREEN INCLUDES EVALUATION FOR P-ANCA, C-ANCA, AND ATYPICAL P-ANCA. Test Performed at: [facility] [address] [place] [id number] Malik Yeboah MD, PhD 2Result Comment: <1.0 AI No Antibody Detected > or=1.0 AI Antibody Detected Autoantibodies to proteinase-3 (TN-3) are accepted as characteristic for granulomatosis with polyangiitis (Willian's), and are detectable in 95% of the histologically proven cases. The cytoplasmic IFA pattern (c-ANCA) is based largely on autoantibody to TN-3 which serves as the primary antigen. These autoantibodies are present in the active disease state. Test Performed at: [facility] [address] [place] [phone] Malik Yeboah MD, PhD 3Result Comment: <1.0 AI No Antibody Detected > or=1.0 AI Antibody Detected Autoantibodies to myeloperoxidase (MPO) are commonly associated with the following small-vessel vasculitides: microscopic polyangiitis, polyarteritis nodosa, Churg-Cole syndrome, necrotizing and crescentic glomerulonephritis and occasionally granulomatosis with polyangiitis (Willian's). The perinuclear IFA pattern (p-ANCA) is based largely on autoantibody to myeloperoxidase which serves as the primary antigen. These autoantibodies are present in the active disease state. Test Performed at: [facility] [address] [phone] Malik Yeboah MD, PhD HEMATOLOGY 1 2 3 Most recent to oldest [Reference Range]: 8.7 K/CMM (07/21/16 4:41 AM) 5.0 K/CMM (07/19/16 3:42 AM) 5.0 K/CMM (07/18/16 5:28 AM) WBC [3.7-10.4 K/CMM] 3.66 M/CMM *LOW* (07/21/16 4:41 AM) 3.35 M/CMM *LOW* (07/19/16 3:42 AM) 3.26 M/CMM *LOW* (07/18/16 5:28 AM) RBC [4.20-5.40 M/CMM] 10.5 g/dL *LOW* (07/21/16 4:41 AM) 9.6 g/dL *LOW* (07/19/16 3:42 AM) 9.5 g/dL *LOW* (07/18/16 5:28 AM) Hgb [12.0-16.0 g/dL] 33.5 % *LOW* (07/21/16 4:41 AM) 29.8 % *LOW* (07/19/16 3:42 AM) 29.5 % *LOW* (07/18/16 5:28 AM) Hct [36.0-48.0 %] 91.5 fL (07/21/16 4:41 AM) 88.9 fL (07/19/16 3:42 AM) 90.4 fL (07/18/16 5:28 AM) MCV [80.0-98.0 fL] 28.8 pg (07/21/16 4:41 AM) 28.5 pg (07/19/16 3:42 AM) 29.1 pg (07/18/16 5:28 AM) MCH [27.0-31.0 pg] 31.5 g/dL *LOW* (07/21/16 4:41 AM) 32.1 g/dL (07/19/16 3:42 AM) 32.2 g/dL (07/18/16 5:28 AM) MCHC [32.0-36.0 g/dL] 14.2 % (07/21/16 4:41 AM) 14.1 % (07/19/16 3:42 AM) 13.9 % (07/18/16 5:28 AM) RDW [11.5-14.5 %] 484 K/CMM *HI* (07/21/16 4:41 AM) 370 K/CMM (07/19/16 3:42 AM) 366 K/CMM (07/18/16 5:28 AM) Platelet [133-450 K/CMM] 7.6 fL (07/21/16 4:41 AM) 7.5 fL (07/19/16 3:42 AM) 7.7 fL (07/18/16 5:28 AM) MPV [7.4-10.4 fL] 50.1 % (07/21/16 4:41 AM) 58.0 % (07/19/16 3:42 AM) 60.0 % (07/18/16 5:28 AM) Segs [45.0-75.0 %] 11.0 % (07/18/16 5:28 AM) 13.0 % *HI* (07/17/16 5:22 AM) 34.0 % *HI* (07/16/16 5:25 AM) Bands [0.0-11.0 %] 37.1 % (07/21/16 4:41 AM) 25.3 % (07/19/16 3:42 AM) 13.0 % *LOW* (07/18/16 5:28 AM) Lymphocytes [20.0-40.0 %] 0.0 % (07/17/16 5:22 AM) 0.0 % (07/16/16 5:25 AM) 0.0 % (07/15/16 3:55 AM) Atypical Lymphs [<=0.0 %] 9.6 % (07/21/16 4:41 AM) 14.1 % *HI* (07/19/16 3:42 AM) 10.0 % (07/18/16 5:28 AM) Monocytes [2.0-12.0 %] 2.8 % (07/21/16 4:41 AM) 2.1 % (07/19/16 3:42 AM) 2.0 % (07/18/16 5:28 AM) Eosinophils [0.0-4.0 %] 0.4 % (07/21/16 4:41 AM) 0.5 % (07/19/16 3:42 AM) 1.0 % (07/18/16 5:28 AM) Basophils [0.0-1.0 %] 3.0 % *HI* (07/18/16 5:28 AM) 4.0 % *HI* (07/15/16 3:55 AM) 3.0 % *HI* (07/14/16 6:04 AM) Metamyelocytes [0.0-1.0 %] 4.3 K/CMM (07/21/16 4:41 AM) 2.9 K/CMM (07/19/16 3:42 AM) 3.6 K/CMM (07/18/16 5:28 AM) Segs-Bands # [1.5-8.1 K/CMM] 3.2 K/CMM (07/21/16 4:41 AM) 1.3 K/CMM (07/19/16 3:42 AM) 0.6 K/CMM *LOW* (07/18/16 5:28 AM) Lymphocytes # [1.0-5.5 K/CMM] 0.8 K/CMM (07/21/16 4:41 AM) 0.7 K/CMM (07/19/16 3:42 AM) 0.5 K/CMM (07/18/16 5:28 AM) Monocytes # [0.0-0.8 K/CMM] 0.2 K/CMM (07/21/16 4:41 AM) 0.1 K/CMM (07/19/16 3:42 AM) 0.1 K/CMM (07/18/16 5:28 AM) Eosinophils # [0.0-0.5 K/CMM] 0.0 K/CMM (07/21/16 4:41 AM) 0.0 K/CMM (07/19/16 3:42 AM) 0.0 K/CMM (07/18/16 5:28 AM) Basophils # [0.0-0.2 K/CMM] Normal (07/18/16 5:28 AM) Normal (07/17/16 5:22 AM) Normal (07/16/16 5:25 AM) RBC Morph Normal (07/18/16 5:28 AM) Normal (07/17/16 5:22 AM) Normal (07/16/16 5:25 AM) Plt Morph 17.3 seconds *HI* (07/15/16 10:00 AM) 15.0 seconds *HI* (07/13/16 2:04 AM) PT [12.0-14.7 seconds] 1.39 *HI* (07/15/16 10:00 AM) 1.15 (07/13/16 2:04 AM) INR [0.85-1.17] 25.7 seconds (07/15/16 10:00 AM) 23.0 seconds (07/12/16 8:24 PM) PTT [22.9-35.8 seconds] TUMOR MARKERS 1 2 3 Most recent to oldest [Reference Range]: 0.7 ng/mL (07/12/16 6:01 PM) CEA [0.0-3.0 ng/mL] MOLECULAR DIAGNOSTIC 1 2 3 Most recent to oldest [Reference Range]: Positive 1 *ABN* (07/12/16 3:48 PM) C difficile DNA [Negative] 1Result Comment: "Significant Findings called to [facility] at 07/12/2016 21:28 by SBA.Read Back OK." BACTERIAL - SEROLOGY 1 2 3 Most recent to oldest [Reference Range]: Negative (07/12/16 3:52 PM) MRSA by PCR PARASITOLOGY - SEROLOGY 1 2 3 Most recent to oldest [Reference Range]: Negative (07/12/16 3:48 PM) Giardia Ag [Negative] FUNGAL - SEROLOGY 1 2 3 Most recent to oldest [Reference Range]: <20.0 Units 1 *NA* (07/12/16 6:01 PM) S cerevisiae IgA <20.0 Units 2 *NA* (07/12/16 6:01 PM) S cerevisiae IgG 1Result Comment: Reference Range: <=20.0 NEGATIVE 20.1-24.9 EQUIVOCAL >=25.0 POSITIVE Test Performed at: [facility] [place] [address] [place] [address] Malik Yeboah MD, PhD 2Result Comment: Reference Range: <=20 NEGATIVE 20.1-29.9 EQUIVOCAL >=30 POSITIVE Test Performed at: [facility] [address] [place] [address] Malik Yeboah MD, PhD Immunizations Given and Recorded Vaccine Date Status Refusal Reason pneumococcal 23-valent vaccine 07/21/16 Given Procedures Procedure Date Related Diagnosis Body Site section Social History Social History Type Response Substance Abuse Use: None. Alcohol Current, Frequency: 1-2 times per year. Smoking Status Never smoker; Exposure to Tobacco Smoke None; Cigarette Smoking Last 365 Days No; Reg Smoking Cessation Counseling No Assessment and Plan Extracted from: Title: General Surgery Author: Lizzy Bob NP Date: 07/21/16 Lizzy Bob NP; With Dr. To Patient seen and examined The patient resting in bed. Vital signs stable and afebrile. Doing better today. Denies abdominal pain, N/V. States that has less frequent diarrhea. Urine output is adequate. Tolerating regular diet. EXAMINATION: The patient is awake, alert, in NAD. CHEST: Has good inspiratory effort bilaterally and is clear. HEART: Regular rate and rhythm; ABDOMEN: Soft, nontenderness to palpation. EXTREMITIES: Show no calf tenderness and no swelling. Labs reviewed: WBC 8.7, Hgb 10.5 Positive C-Diff Abdominal X-ray: There is a paucity of bowel gas in the left mid and lower abdomen and about the pelvis. No dilated loops of bowel identified about the abdomen or pelvis. No abnormal abdominal or pelvic calcifications. The bladder appears mildly distended. ASSESSMENT AND PLAN: Dr. Lyle considering discharge plan Patient is overall improving. Extracted from: Title: General Surgery Author: Lizzy Bob NP Date: 07/12/16 Impression and Plan Diagnosis Abdominal pain ([id number] R10.9, Working, Medical). Course: Improving. Patient resting in ICU bed, stating she feel better than this morning. Receiving IVF and pain management. NPO Antibiotics, Methylprednisolone Will follow up
--- OUTSIDE RECORDS SUMMARY | 2019-01-26 12:51 | XMS REPORT | Encounter Summary ---
Author Organization Unknown Address [address] [place] [id number] Phone [phone] Care Team Providers Care Administrative Judge Name Role Phone Leila Verde MD 3 [phone] Reason for Visit Medical Complaint Instructions 1. Renal angle tenderness urinalysis, dipstick test, urine culture, urine patient follow up phone call 2. Venereal disease screening CT + NG RNA, PCR, unspecified specimen 3. Blood in urine blood in the urine: care instructions 4. Body mass index 40+ - severely obese body mass index: care instructions Discussion Note Pt is in NAD; Verbalizes understanding of all instructions with no questions at this time. Plan of Care Patient Instructions Based on the nature of your symptoms I recommend you report to the nearest ER immediately for further evaluation and recommendations. I recommend remain on an empty stomach until instructed otherwise by ER staff. Reminders Provider Appointments None recorded. Lab Urinalysis, Dipstick 11/02/2018 [facility] Test, Urine 11/02/[address] [facility] [address] + NG RNA, PCR, Unspecified Specimen 11/02/2018 [facility] Culture, Urine 11/02/2018 [facility] Referral None recorded. Procedures None recorded. Surgeries None recorded. Imaging None recorded. Medications Name Start Date Asacol HD 800 mg tablet,delayed release bupropion HCl 75 mg tablet paroxetine 20 mg tablet ProAir HFA 90 mcg/actuation aerosol inhaler 11/02/2018 Medications Administered None recorded. Vitals Height Weight BMI Blood Pressure 5 ft 212 lbs 41.4 kg/m2 110/68 mm[Hg] Lab Results Date Name Specimen Result Interpretation Description Value Range Status Address 11/02/2018 Urinalysis, Dipstick Color : [facility]: [address] [place] [address] Clarity : Cloudy [facility]: [address] [place] [address] Leukocytes : Small [facility]: [address] [place] [address] Nitrites : Negative [facility]: [address] [place] [address] Urobilinogen : Normal [facility]: [address] [place] [address] Protein : Negative [facility]: [facility] Ph : 7.0 [facility]: [facility] Blood : Large [facility]: [facility] Specific [place] : 1.025 [facility]: [facility] Ketones : Negative [facility]: [facility] Bilirubin : Negative [facility]: [facility] Glucose Negative [facility]: [facility] Test, Urine Results negative [facility]: [facility] Allergies Code Code System Name Reaction Severity Status Onset NKDA Problems Name Status Onset Date Source Anxiety Active 11/02/2018 Depressive Disorder Active 11/02/2018 Asthma Active 11/02/2018 Blood in Urine Active 11/02/2018 Renal Angle Tenderness Active 11/02/2018 Venereal Disease Screening Active 11/02/2018 Body Mass Index 40+ - Severely Obese Active 11/02/2018 Procedures Date Name Performed by 10/17/2007 Information not available 10/17/2000 Information not available 10/17/1979 Tonsillectomy Information not available Vaccine List Vaccine Type influenza, unspecified formulation 06/17/2018 Social History Smoking Status Never Smoker Past Encounters 11/02/2018 Renal Angle Tenderness; Venereal Disease Screening; Blood in Urine; Body Mass Index 40+ - Severely Obese Niyah Ortiz, [employer]-[facility]: [address] [place] [address], Ph. History of Present Illness [id number] Reported By: Patient HPI: Location: radiation to right lower back pain. Quality: pain, pressure. Severity: worsening, moderate, worst pain 8/10. Duration: started TODAY, constant. Onset/Timing: worse, gradual. Context: no known exposure to STD, no prior history of STDs, sexually active, [id number], heterosexual, vaginal intercourse, wipes anterior to posterior, voids after intercourse. Modifying factors nothing makes it worse. Associated Symptoms: no fever/chills, no jaundice, no blood in the urine, no pain during urination, no blisters on genitals, no rash on genitals, no muscle aches, no headache, flank pain, white vaginal discharge, urgency Review of Systems:ROS as noted in the HPI Review of Systems Basic Reported By: Patient Physical Exam Adult Basic, Adult Female Complete Reported By: Patient Constitutional: General Appearance: healthy-appearing, well-nourished, well-developed. Level of Distress: moderate distress. Ambulation: limited ambulation Psychiatric: Mental Status: active and alert. Orientation: to time, to place, to person Eyes: Lids and Conjunctivae: non-injected, no pallor; no periorbital edema Neck: Neck: supple. Lymph Nodes: no cervical LAD Lungs: Respiratory effort: no dyspnea, no tachypnea, no use of accessory muscles, no intercostal retractions. Auscultation: breath sounds normal Cardiovascular: Heart Auscultation: RRR, no murmurs Musculoskeletal:: Extremities: no edema Neurologic: Gait and Station: normal gait Abdomen: Bowel Sounds: normal. Inspection and Palpation: soft, non-distended, no guarding, no rebound tenderness, no masses, RUQ tenderness, RLQ tenderness, CVA tenderness. Liver: no hepatomegaly. Spleen: non-tender, no splenomegaly. Hernia: none palpable
--- OUTSIDE RECORDS SUMMARY | 2019-01-26 12:51 | XMS REPORT | Continuity of Care Document ---
Author Author [facility] Interface Address Unknown Phone Unavailable Problems Problem Status Onset Date Classification Date Reported Comments Source Blood in urine 11/02/2018 Diagnosis 11/02/2018 [facility] Renal angle tenderness 11/02/2018 Diagnosis 11/02/2018 [facility] Body mass index 40+ - severely obese 11/02/2018 Diagnosis 11/02/2018 [facility] Venereal disease screening 11/02/2018 Diagnosis 11/02/2018 [facility] Anxiety 11/02/2018 Problem 11/02/2018 [facility] Depressive Disorder 11/02/2018 Problem 11/02/2018 [facility] Blood in Urine 11/02/2018 Problem 11/02/2018 [facility] Renal Angle Tenderness 11/02/2018 Problem 11/02/2018 [facility] Venereal Disease Screening 11/02/2018 Problem 11/02/2018 [facility] Body Mass Index 40+ - Severely Obese 11/02/2018 Problem 11/02/2018 [facility] KIDNEY PAIN Active 11/02/2018 [facility] History of asthma 08/21/2018 Diagnosis 08/21/2018 [facility] Body mass index 30+ - obesity 08/21/2018 Diagnosis 08/21/2018 [facility] Cough 08/21/2018 Diagnosis 08/21/2018 [facility] Acute sinusitis 08/21/2018 Diagnosis 08/21/2018 [facility] Right lower quadrant abdominal swelling, mass and lump 12/14/2017 03/16/2018 [facility] RT URSULA PAIN/SWELLLING Active 12/08/2017 Jose SENT BY / BODY PAIN Active 07/12/2016 [facility] COLITIS R/O TOXIC MEGACOLON Active 07/12/2016 [facility] Clostridium difficile<sup>1, 2</sup> Active 07/12/2016 Problem 12/06/2018 Problem added by Discern Expert. [facility] Pain Active 04/29/2012 Problem 12/06/2018 [facility] Other specified postprocedural states 03/16/2018 [facility] Aneurysm of other specified arteries 03/16/2018 [facility] Acute ulcerative colitis Active Problem 12/06/2018 [facility] Asthma Resolved Problem 12/06/2018 [facility] Dehydration Active Problem 12/06/2018 [facility] GERD (<span [id number]">Confirmed</span>) Resolved Problem 12/06/2018 [facility] Colitis Resolved Problem 12/06/2018 [facility] ILLNESS, UNSPECIFIED Active [facility] OTHER INTRA-ABDOMINAL AND PELVIC SWELLIN Active [facility] Medications Medication Details Route Status Patient Instructions Ordering Provider Order Date Source Asacol 0 Refill(s) Active 12/04/[facility] Paxil PO, Daily, 0 Refill(s) Active 12/04/2018 [facility] Wellbutrin PO, 0 Refill(s) Active 12/04/2018 [facility] Albuterol 0.09 MG/ACTUAT Metered Dose Inhaler ProAir HFA 90 mcg/actuation aerosol inhaler Active 11/02/2018 [facility] mesalamine 800 MG Enteric Coated Tablet 1,600 mg=2 tab, PO, TID, 0 Refill(s) Active 07/22/2016 [facility] Metronidazole 500 MG Oral Tablet [Flagyl] 500 mg=1 tab, PO, Q8H, X 7 day, # 21 tab, 0 Refill(s) Active 07/21/2016 [facility] vancomycin 250 mg oral capsule 500 mg=2 cap, PO, Q6H, X 7 day, # 56 cap, 0 Refill(s) Active 07/21/2016 [facility] Asacol HD 1,600 mg, 2 tab, Route: PO, Drug form: ECTAB, TID, Dosing Weight 77.273, kg, Start date: 07/20/16 14:00:00 CDT, Duration: 30 day, Stop date: 08/19/16 13:00:00 CDTNotes: (Same as: Asacol HD) (Do not crush) No Longer Active 07/20/2016 [facility] Vancomycin 500 mg, 10 mL, Route: PO, Drug form: SOLN, ABXQ6H, Dosing Weight 77.273, kg, Start date: 07/20/16 10:00:00 CDT, Duration: 30 day, Stop date: 08/19/16 4:00:00 CDTNotes: TIME CRITICAL MEDICATION (Same: as Vancocin) For oral use only No Longer Active 07/20/2016 [facility] Flagyl 500 mg, 1 tab, Route: PO, Drug form: TAB, ABXQ8H, Dosing Weight 77.273, kg, Start date: 07/19/16 14:00:00 CDT, Duration: 30 day, Stop date: 08/18/16 6:00:00 CDTNotes: (Same as: Flagyl) Take with food/ avoid alcohol No Longer Active 07/19/2016 [facility] Zantac 150 150 mg, Route: PO, Drug form: TAB, BID, Dosing Weight 77.273, kg, Start date: 07/18/16 17:00:00 CDT, Duration: 30 day, Stop date: 08/17/16 9:00:00 CDT Inactive 07/18/2016 [facility] Pepcid 20 mg, 1 tab, Route: PO, Drug form: TAB, Q12H, Start date: 07/18/16 17:00:00 CDT, Duration: 30 day, Stop date: 08/17/16 9:00:00 CDTNotes: (Same as: Pepcid) No Longer Active 07/18/2016 [facility] Sodium Chloride 0.9% IV 250 mL, Route: IVPB, Start date: 07/18/16 16:22:00 CDT, Duration: 30 day, Stop date: 08/17/16 16:21:00 CDT, PRN Line Flush No Longer Active 07/18/2016 [facility] BD Normal Saline Flush 10 mL, Route: IVP, Drug Form: INJ, PRN, PRN Line Flush, Start date: 07/18/16 16:22:00 CDT, Duration: 30 day, Stop date: 08/17/16 16:21:00 CDTNotes: (Same as: BD Posiflush) No Longer Active 07/18/2016 [facility] Calcium Chloride 1,000 mg, 100 mL, Route: IVPB, Drug form: INJ, ONCE, Dosing Weight 77.273, kg, Start date: 07/17/16 11:47:00 CDT, Stop date: 07/17/16 11:47:00 CDTNotes: WASTE: F/P - Sink; E - Municipal Trash Bin Inactive 07/17/2016 [facility] Sodium Chloride 0.154 MEQ/ML Injectable Solution 1,000 mL, 1,000 ml/hr, Infuse Over: 1 hr, Route: IV, 1,000, Drug form: INJ, ONCE, Priority: STAT, Dosing Weight 77.273 kg, Start date: 07/17/16 10:58:00 CDT, Duration: 1 doses or times, Stop date: 07/17/16 10:58:00 CDT Inactive 07/17/2016 [facility] TPN solution, adult 1,850 mL 1,850 mL, Rate: 75 ml/hr, Infuse over: 24.7 hr, Route: IV, Dosing Weight 77.273 kg, Total Volume: 1,850, Start date: 07/16/16 22:00:00 CDT, Stop date: 07/20/16 23:59:00 CDTNotes: Per hospital policy, bag must be changed every 24hr. No Longer Active 07/17/2016 [facility] 1,000 mg, 100 mL, Route: IV, Drug form: INJ, Q6H, PRN Other -See Comment, Start date: 07/16/16 19:02:00 CDT, Duration: 30 day, Stop date: 08/15/16 19:01:00 CDTNotes: Infuse over 15 minutes Do not exceed 4gm/day of acetaminophen MEDICATION WASTE Product Size: 1000 mg Product Wasted: ___ mg No Longer Active 07/17/2016 [facility] DO NOT GIVE NARCOTICS DO NOT GIVE NARCOTICS, 1, Drug form: MISC, Route: IV, ONCALL, 07/16/16 10:00:00 CDT, Duration: 30 day, Stop date: 08/15/16 9:59:00 CDT No Longer Active 07/16/2016 [facility] Sodium Chloride 0.154 MEQ/ML Injectable Solution 1,000 mL, 1,000 ml/hr, Infuse Over: 1 hr, Route: IV, 1,000, Drug form: INJ, ONCE, Priority: STAT, Dosing Weight 77.273 kg, Start date: 07/16/16 9:42:00 CDT, Duration: 1 doses or times, Stop date: 07/16/16 9:42:00 CDT Inactive 07/16/2016 [facility] Ofirmev 1 gm, 100 mL, Route: IVPB, Drug form: INJ, ONCE, Start date: 07/16/16 8:37:00 CDT, Stop date: 07/16/16 8:37:00 CDTNotes: Infuse over 15 minutes Do not exceed 4gm/day of acetaminophen MEDICATION WASTE Product Size: 1000 mg Product Wasted: ___ mg Inactive 07/16/2016 [facility] Sublimaze 25 microgram, 0.5 mL, Route: IVP, Drug form: INJ, ONCE, Start date: 07/16/16 4:51:00 CDT, Stop date: 07/16/16 4:51:00 CDTNotes: (Same as: Sublimaze) Preservative free. Inactive 07/16/2016 [facility] hydromorphone 0.5 mg, 0.5 mL, Route: IVP, Drug form: INJ, Q4H, PRN Pain Score 7-10, Start date: 07/16/16 3:38:00 CDT, Duration: 30 day, Stop date: 08/15/16 3:37:00 CDT Inactive 07/16/2016 [facility] Sodium Chloride 0.154 MEQ/ML Injectable Solution 1,000 mL, 1,000 ml/hr, Infuse Over: 1 hr, Route: IV, 1,000, Drug form: INJ, ONCE, Priority: STAT, Dosing Weight 77.273 kg, Start date: 07/15/16 12:49:00 CDT, Duration: 1 doses or times, Stop date: 07/15/16 12:49:00 CDT Inactive 07/15/2016 [facility] Zosyn 3.375 gm, Route: IVPB, ABXQ8H, Dosing Weight 77.273, kg, CrCl >=20 ml/min infuse over 4 hours, Start date: 07/15/16 9:00:00 CDT, Duration: 30 day, Stop date: 08/14/16 1:00:00 CDTNotes: (Same as: Zosyn) Dosing based on Piperacillin component MEDICATION WASTE Product Size: 3375 mg Product Wasted: ___ mg No Longer Active 07/15/2016 [facility] hydrocortisone 2.5% rectal cream with applicator 1 appl, Route: MO, TID, Drug form: CRM/A, Start date: 07/14/16 20:30:00 CDT, Duration: 30 day, Stop date: 08/13/16 17:00:00 CDTNotes: (Same as: Anusol-HC, Proctosol- HC) No Longer Active 07/15/2016 [facility] Preparation H rectal ointment Route: MO, TID, Start date: 07/14/16 17:00:00 CDT, Duration: 30 day, Stop date: 08/13/16 13:00:00 CDT Inactive 07/14/2016 [facility] Flagyl 500 mg, 100 mL, Route: IVPB, Drug form: INJ, ABXQ8H, Dosing Weight 77.273, kg, Start date: 07/14/16 15:00:00 CDT, Duration: 30 day, Stop date: 08/13/16 7:00:00 CDTNotes: (Same as: Flagyl) Avoid alcohol. No Longer Active 07/14/2016 [facility] Vancomycin 500 mg, Route: MO, Drug Form: SHAYLEE, Dosing Weight 77.273, kg, ABXQ6H, Start date: 07/14/16 15:00:00 CDT, Duration: 30 day, Stop date: 08/13/16 9:00:00 CDTNotes: TIME CRITICAL MEDICATION FOR ENEMA retention enema for c.diff. No Longer Active 07/14/2016 [facility] Ofirmev 1,000 mg, 100 mL, Route: IV, Drug form: INJ, ONCE, Dosing Weight 77.273, kg, PRN Pain Score 6-10, for > or=50 kg, Start date: 07/14/16 11:32:00 CDTNotes: Infuse over 15 minutes Do not exceed 4gm/day of a cetaminophen MEDICATION WASTE Product Size: 1000 mg Product Wasted: ___ mg No Longer Active 07/14/2016 [facility] Ativan 0.5 mg, 0.25 mL, Route: IM, Drug form: INJ, Q6H, Dosing Weight 77.273, kg, PRN Anxiety, Start date: 07/14/16 11:26:00 CDT, Duration: 30 day, Stop date: 08/13/16 11:25:00 CDTNotes: (Same as: Ativan) No Longer Active 07/14/2016 [facility] Hydrocortisone 25 MG/ML Topical Cream [Anusol HC] 1 appl, Route: MO, BID, Drug form: CRM/A, PRN Hemorrhoids, Start date: 07/14/16 11:14:00 CDT, Duration: 30 day, Stop date: 08/13/16 11:13:00 CDTNotes: (Same as: Anusol-HC, Proctosol-HC) No Longer Active 07/14/2016 [facility] Acetaminophen 300 MG / Codeine Phosphate 30 MG Oral Tablet 2 tab, Route: PO, Drug Form: TAB, Dosing Weight 77.273, kg, Q6H, PRN Pain Score 4-6, Start date: 07/14/16 9:44:00 CDT, Duration: 30 day, Stop date: 08/13/16 9:43:00 CDTNotes: Do not exceed 4gm/day of acetaminophen. (Same as: Tylenol with Codeine # 3) Inactive 07/14/2016 [facility] Fleet Enema 133 mL, Route: MO, Drug Form: SHAYLEE, ONCE, Start date: 07/14/16 9:31:00 CDT, Stop date: 07/14/16 9:31:00 CDT Inactive 07/14/2016 [facility] lactulose 30 gm, 45 mL, Route: PO, Drug form: SYRP, ONCE, Start date: 07/14/16 9:27:00 CDT, Stop date: 07/14/16 9:27:00 CDTNotes: (Same as:Chronulac) Inactive 07/14/2016 [facility] Zantac 150 mg, 10 mL, Route: PO, Drug form: SYRP, Q12H, Start date: 07/14/16 9:00:00 CDT, Duration: 30 day, Stop date: 08/12/16 21:00:00 CDTNotes: (Same as:Zantac) Non-Formulary Item Take before or with meals Inactive 07/14/2016 [facility] Pepcid 20 mg, 2 mL, Route: IVP, Drug form: INJ, Q12H, Dosing Weight 77.273, kg, Start date: 07/14/16 9:00:00 CDT, Duration: 30 day, Stop date: 08/12/16 21:00:00 CDTNotes: (Same as: Pepcid) Can be dilute in 5-10cc NS IVP: Slow IV push over at least 2 minutes. Inactive 07/14/2016 [facility] Zofran 4 mg, 2 mL, Route: IVP, Drug form: INJ, Q6H, Start date: 07/13/16 22:30:00 CDT, Duration: 30 day, Stop date: 08/12/16 16:30:00 CDTNotes: (Same as: Zofran) MEDICATION WASTE Product Size: 4 mg Product Wasted: 0___ mg No Longer Active 07/14/2016 [facility] Levofloxacin 750 mg, 150 mL, Route: IVPB, Drug form: SOLN, [id number], Dosing Weight 77.273, kg, For CrCl > 49ml/min, Start date: 07/13/16 21:00:00 CDT, Duration: 30 day, Stop date: 08/11/16 21:00:00 CDTNotes: (Same as:Levaquin) No Longer Active 07/14/2016 [facility] Zofran 4 mg, 2 mL, Route: IVP, Drug form: INJ, Q6H, PRN Nausea & Vomiting, Start date: 07/13/16 16:22:00 CDT, Duration: 30 day, Stop date: 08/12/16 16:21:00 CDTNotes: (Same as: Zofran) MEDICATION WASTE Product Size: 4 mg Product Wasted: __0_ mg No Longer Active 07/13/2016 [facility] Metronidazole 500 mg, 100 mL, Route: IVPB, Drug form: INJ, Q6H, Dosing Weight 77.273, kg, Start date: 07/13/16 15:00:00 CDT, Duration: 30 day, Stop date: 08/12/16 9:00:00 CDTNotes: (Same as: Flagyl) Avoid alcohol. No Longer Active 07/13/2016 [facility] Zofran 4 mg, 2 mL, Route: IVP, Drug form: INJ, Q8H, Dosing Weight 77.273, kg, PRN Nausea, Start date: 07/13/16 11:03:00 CDT, Duration: 30 day, Stop date: 08/12/16 11:02:00 CDTNotes: (Same as: Zofran) MEDICATION WASTE Product Size: 4 mg Product Wasted: ___ mg Inactive 07/13/2016 [facility] vancomycin 500 mg, 10 mL, Route: PO, Drug form: SOLN, ABXQ6H, Start date: 07/12/16 23:00:00 CDT, Stop date: 07/19/16 17:00:00 CDTNotes: TIME CRITICAL MEDICATION (Same: as Vancocin) For oral use only No Longer Active 07/13/2016 [facility] Metronidazole 500 MG Oral Tablet 500 mg, 1 tab, Route: PO, Drug form: TAB, ABXQ6H, Dosing Weight 77.273, kg, Priority: STAT, Start date: 07/12/16 21:35:00 CDT, Duration: 14 day, Stop date: 07/26/16 16:00:00 CDTNotes: (Same as: Flagyl) Take with food/ avoid alcohol No Longer Active 07/13/2016 [facility] Vancomycin 500 mg, 10 mL, Route: PO, Drug form: SOLN, ABXQ6H, Dosing Weight 77.273, kg, Priority: STAT, Start date: 07/12/16 21:35:00 CDT, Duration: 7 day, Stop date: 07/19/16 16:00:00 CDTNotes: TIME CRITICAL MEDICATION (Same: as Vancocin) For oral use only Inactive 07/13/2016 [facility] Saline Flush 0.9% 10 ml, Route: IVP, Drug Form: INJ, Dosing Weight 77.273, kg, Q12H, Start date: 07/12/16 21:00:00 CDT, Duration: 30 day, Stop date: 08/11/16 9:00:00 CDTNotes: (Same as: BD Posiflush) No Longer Active 07/13/2016 [facility] Famotidine 20 mg, 2 mL, Route: IVP, Drug form: INJ, Q12H, Dosing Weight 77.273, kg, Start date: 07/12/16 21:00:00 CDT, Duration: 30 day, Stop date: 08/11/16 9:00:00 CDTNotes: (Same as: Pepcid) Can be dilute in 5-10cc NS IVP: Slow IV push over at least 2 minutes. No Longer Active 07/13/2016 [facility] methylPREDNISolone SODium SUCCinate 40 mg, 1 mL, Route: IVP, Drug form: INJ, Q12H, Dosing Weight 77.273, kg, Start date: 07/12/16 21:00:00 CDT, Duration: 30 day, Stop date: 08/11/16 9:00:00 CDTNotes: (Same as:Solu-MEDROL, A-Methapred) No Longer Active 07/13/2016 [facility] hydromorphone 1 mg, 1 mL, Route: IVP, Drug form: INJ, Q2H, PRN Pain Score 6-10, Start date: 07/12/16 19:49:00 CDT, Duration: 30 day, Stop date: 08/11/16 19:48:00 CDT No Longer Active 07/13/2016 [facility] Zofran 4 mg, 2 mL, Route: IVP, Drug form: INJ, Q8H, Dosing Weight 77.273, kg, PRN Nausea, Start date: 07/12/16 17:48:00 CDT, Duration: 30 day, Stop date: 08/11/16 17:47:00 CDTNotes: (Same as: Zofran) MEDICATION WASTE Product Size: 4 mg Product Wasted: __0_ mg No Longer Active 07/12/2016 [facility] Morphine 1 mg, 0.5 mL, Route: IVP, Drug form: INJ, Q2H, Dosing Weight 77.273, kg, PRN Pain Score 1-3, Start date: 07/12/16 17:47:00 CDT, Duration: 30 day, Stop date: 08/11/16 17:46:00 CDTNotes: (Same as:MORPhine Sulfate) No Longer Active 07/12/2016 [facility] predniSONE 20 mg oral tablet 20 mg=1 tab, PO, Daily, # 7 tab, 0 Refill(s) No Longer Active 07/12/2016 [facility] Acetaminophen 300 MG / Codeine Phosphate 30 MG Oral Tablet 2 tab, PO, TID, PRN for pain, # 56 tab, 0 Refill(s) No Longer Active 07/12/2016 [facility] tramadol hydrochloride 50 MG Oral Tablet 50 mg=1 tab, PO, Q8H, PRN Pain, # 60 tab, 0 Refill(s) No Longer Active 07/12/2016 [facility] hyoscyamine 0.125 mg sublingual tablet 0.125 mg=1 tab, SL, Q6H, PRN Spasms, # 30 tab, 0 Refill(s) No Longer Active 07/12/2016 [facility] heparin 5,000 unit, 1 mL, Route: SUB-Q, Drug form: INJ, Q8H, Dosing Weight 77.273, kg, Start date: 07/12/16 17:11:00 CDT, Duration: 30 day, Stop date: 08/11/16 16:00:00 CDTNotes: porcine heparin No Longer Active 07/12/2016 [facility] Sodium Chloride 0.9% IV 250 mL, Route: IVPB, Start date: 07/12/16 17:07:00 CDT, Duration: 30 day, Stop date: 08/11/16 17:06:00 CDT, PRN Line Flush No Longer Active 07/12/2016 [facility] BD Normal Saline Flush 10 mL, Route: IVP, Drug Form: INJ, PRN, PRN Line Flush, Start date: 07/12/16 17:07:00 CDT, Duration: 30 day, Stop date: 08/11/16 17:06:00 CDTNotes: (Same as: BD Posiflush) Inactive 07/12/2016 [facility] potassium phosphate 15 mmol, 250 mL, Route: IVPB, Drug form: INJ, PRN, Dosing Weight 77.273, kg, PRN Abnormal Lab Result, Start date: 07/12/16 16:48:00 CDT, Duration: 30 day, Stop date: 08/11/16 16:47:00 CDT, FOR ICU USE ONLYNotes: (Same as: K Phosphate) No Longer Active 07/12/2016 [facility] potassium chloride 20 mEq, 100 mL, Route: IVPB, Drug form: INJ, PRN, Dosing Weight 77.273, kg, PRN Abnormal Lab Result, Via central line, Start date: 07/12/16 16:48:00 CDT, Duration: 30 day, Stop date: 08/11/16 16:47:0 0 CDT, FOR ICU USE ONLYNotes: (Same as: KCL) Infuse no faster than 10 mEq/hr if given peripherally. No Longer Active 07/12/2016 [facility] sodium phosphate 30 mmol, 250 mL, Route: IVPB, Drug form: INJ, PRN, Dosing Weight 77.273, kg, PRN Abnormal Lab Result, Start date: 07/12/16 16:48:00 CDT, Duration: 30 day, Stop date: 08/11/16 16:47:00 CDT, FOR ICU USE ONLY No Longer Active 07/12/2016 [facility] sodium phosphate + sodium chloride 0.9% INJ 250 mL 45 mmol, 15 mL, Route: IVPB, PRN, Dosing Weight 77.273, kg, PRN Abnormal Lab Result, Start date: 07/12/16 16:48:00 CDT, Duration: 30 day, Stop date: 08/11/16 16:47:00 CDT, FOR ICU USE ONLY No Longer Active 07/12/2016 [facility] potassium phosphate + sodium chloride 0.9% INJ 250 mL 45 mmol, 15 mL, Route: IVPB, PRN, Dosing Weight 77.273, kg, PRN Abnormal Lab Result, Start date: 07/12/16 16:48:00 CDT, Duration: 30 day, Stop date: 08/11/16 16:47:00 CDT, FOR ICU USE ONLYNotes: (Same as: K Phosphate.) 1 mMol phoshate has 1.47 mEq potassium Infuse over 4 hours No Longer Active 07/12/2016 [facility] Neutra-Phos 2 pkt, Route: PO, Drug Form: PDR/REC, Dosing Weight 77.273, kg, PRN, PRN Abnormal Lab Result, FOR ICU USE ONLY, Start date: 07/12/16 16:48:00 CDT, Duration: 30 day, Stop date: 08/11/16 16:47:00 CDTNotes: (Same as: Neutra-Phos) Each 1.25 gm pkt has 250mg phosphorous. Mix w/2.5oz water and stir. No Longer Active 07/12/2016 [facility] Calcium Carbonate 500 MG Chewable Tablet 500 mg, 1 tab, Route: PO, Drug form: CHEWTAB, PRN, Dosing Weight 77.273, kg, PRN Abnormal Lab Result, FOR ICU USE ONLY, Start date: 07/12/16 16:48:00 CDT, Duration: 30 day, Stop date: 08/11/16 16:47:00 CDTNotes: (Same As: Oli) Calcium Carbonate 500 pn=738 mg elemental calcium Dose= mg calcium carbonate ( mg elemental calcium) No Longer Active 07/12/2016 [facility] Calcium Gluconate 1 gm, 50 mL, Route: IVPB, Drug form: INJ, PRN, Dosing Weight 77.273, kg, PRN Abnormal Lab Result, Start date: 07/12/16 16:48:00 CDT, Duration: 30 day, Stop date: 08/11/16 16:47:00 CDT, FOR ICU USE ONLYNotes: WASTE: F/P - Sink; E - Municipal Trash Bin No Longer Active 07/12/2016 [facility] Magnesium Sulfate 2 gm, 50 mL, Route: IVPB, Drug form: INJ, PRN, Dosing Weight 77.273, kg, PRN Abnormal Lab Result, Start date: 07/12/16 16:48:00 CDT, Duration: 30 day, Stop date: 08/11/16 16:47:00 CDT, FOR ICU USE ONLYNotes: WASTE: F/P - Sink; E - Municipal Trash Bin No Longer Active 07/12/2016 [facility] Magnesium Oxide 800 mg, 2 tab, Route: PO, Drug form: TAB, PRN, Dosing Weight 77.273, kg, PRN Abnormal Lab Result, FOR ICU USE ONLY, Start date: 07/12/16 16:48:00 CDT, Duration: 30 day, Stop date: 08/11/16 16:47:00 CDTN otes: (Same as: Mag-Ox 400) Magnesium oxide [id number] elemental magnesium Dose=____mg magnesium oxide (___mg elemental magnesium) No Longer Active 07/12/2016 [facility] Saline Flush 0.9% 10 ml, Route: IVP, Drug Form: INJ, Dosing Weight 77.273, kg, PRN, PRN Line Flush, Start date: 07/12/16 16:48:00 CDT, Duration: 30 day, Stop date: 08/11/16 16:47:00 CDTNotes: (Same as: BD Posiflush) No Longer Active 07/12/2016 [facility] Albuterol 0.833 MG/ML / Ipratropium [place] 0.167 MG/ML Inhalant Solution 3 ml, Route: NEB, Drug Form: SOLN, Dosing Weight 77.273, kg, RQ4H, PRN Wheezing, Start date: 07/12/16 16:48:00 CDT, Duration: 30 day, Stop date: 08/11/16 16:47:00 CDTNotes: (Same as: Duoneb) No Longer Active 07/12/2016 [facility] Acetaminophen 650 mg, 2 tab, Route: PO, Drug form: TAB, Q4H, Dosing Weight 77.273, kg, PRN For Temp > 100.4 F, Start date: 07/12/16 16:48:00 CDT, Duration: 30 day, Stop date: 08/11/16 16:47:00 CDTNotes: Do not exceed 4 gm/day. (Same as: Tylenol) No Longer Active 07/12/2016 [facility] Dilaudid 1 mg, Route: IVP, ONCE, Dosing Weight 77.273, kg, Priority: STAT, Start date: 07/12/16 15:07:00 CDT, Stop date: 07/12/16 15:07:00 CDT Inactive 07/12/2016 [facility] Flagyl 500 mg, 100 mL, Route: IVPB, Drug form: INJ, ABXQ8H, Dosing Weight 77.273, kg, Start date: 07/12/16 14:00:00 CDT, Duration: 30 day, Stop date: 08/11/16 6:00:00 CDTNotes: (Same as: Flagyl) Avoid alcohol. Inactive 07/12/2016 [facility] D5W 1/2NS + KCL 20mEq/L 1000ml (Premix) 1,000 mL 1,000 mL, Rate: 125 ml/hr, Infuse over: 8 hr, Route: IV, Dosing Weight 77.273 kg, Total Volume: 1,000, Start date: 07/12/16 13:36:00 CDT, Stop date: 07/16/16 23:00:00 CDTNotes: PREMIX IV - Do Not Alter WASTE: F/P - Sink; E - Municipal Trash Bin No Longer Active 07/12/2016 [facility] [id number] 10 mEq, 100 mL, Route: IVPB, Drug form: INJ, Q1H, Dosing Weight 77.273, kg, PRN Other -See Comment, Start date: 07/12/16 13:36:00 CDT, Duration: 4 doses or times, Stop date: Limited # of timesNotes: Infuse at a rate of 10 mEq/hr. (Same as: KCL) No Longer Active 07/12/2016 [facility] Zosyn 3.375 gm, Route: IVPB, ABXQ6H, Dosing Weight 77.273, kg, Priority: NOW, Start date: 07/12/16 13:35:00 CDT, Duration: 30 day, Stop date: 08/11/16 7:35:00 CDTNotes: (Same as: Zosyn) Dosing based on Piperacillin component MEDICATION WASTE Product Size: 3375 mg Product Wasted: ___ mg No Longer Active 07/12/2016 [facility] Sodium Chloride 0.154 MEQ/ML Injectable Solution 1,000 mL, 1,000 ml/hr, Infuse Over: 1 hr, Route: IV, 1,000, Drug form: INJ, ONCE, Priority: STAT, Dosing Weight 77.273 kg, Start date: 07/12/16 13:34:00 CDT, Duration: 1 doses or times, Stop date: 07/12/16 13:34:00 CDT Inactive 07/12/2016 [facility] Sodium Chloride 0.154 MEQ/ML Injectable Solution 1,000 mL, 1,000 ml/hr, Infuse Over: 1 Hour, Route: IV, ONCE, Priority: STAT, Dosing Weight 77.273 kg, Start date: 07/12/16 13:11:00 CDT, Duration: 1 doses or times, Stop date: 07/12/16 13:11:00 CDT Inactive 07/12/2016 [facility] Levaquin 750 mg, 150 mL, Route: IVPB, Drug form: SOLN, ONCE, Dosing Weight 77.273, kg, Start date: 07/12/16 12:50:00 CDT, Stop date: 07/12/16 12:50:00 CDTNotes: (Same as:Levaquin) Inactive 07/12/2016 [facility] Flagyl 500 mg, 100 mL, Route: IVPB, Drug form: INJ, ONCE, Dosing Weight 77.273, kg, Priority: STAT, Start date: 07/12/16 12:49:00 CDT, Stop date: 07/12/16 12:49:00 CDTNotes: (Same as: Flagyl) Avoid alcohol. Inactive 07/12/2016 [facility] Sodium Chloride 0.154 MEQ/ML Injectable Solution 1,000 mL, 1,000 ml/hr, Infuse Over: 1 hr, Route: IV, 1,000, Drug form: INJ, ONCE, Priority: STAT, Dosing Weight 77.273 kg, Start date: 07/12/16 12:49:00 CDT, Duration: 1 doses or times, Stop date: 07/12/16 12:49:00 CDT Inactive 07/12/2016 [facility] Morphine 4 mg, Route: IVP, ONCE, Dosing Weight 77.273, kg, Priority: STAT, Start date: 07/12/16 9:56:00 CDT, Stop date: 07/12/16 9:56:00 CDT Inactive 07/12/2016 [facility] Ketorolac 30 mg, Route: IVP, Drug form: INJ, ONCE, Dosing Weight 77.273, kg, Priority: STAT, Start date: 07/12/16 9:56:00 CDT, Stop date: 07/12/16 9:56:00 CDT Inactive 07/12/2016 [facility] Solu-Medrol 125 mg, 2 mL, Route: IVP, Drug form: INJ, ONCE, Dosing Weight 77.273, kg, Priority: STAT, Start date: 07/12/16 9:39:00 CDT, Stop date: 07/12/16 9:39:00 CDTNotes: (Same as:Solu-MEDROL, A-Methapred) Inactive 07/12/2016 [facility] Potassium Chloride 20 MEQ Extended Release Tablet 40 mEq, 2 tab, Route: PO, Drug form: ERTAB, ONCE, Dosing Weight 77.273, kg, Priority: STAT, Start date: 07/12/16 9:28:00 CDT, Stop date: 07/12/16 9:28:00 CDTNotes: (Same as: K-Dur 20) "Do Not Crush" With food and full glass of water Inactive 07/12/2016 [facility] pantoprazole 40 mg, Route: IVP, Drug form: INJ, ONCE, Dosing Weight 77.273, kg, For IV push reconstitute with 10 ml 0.9% sodium chloride and push over at least 3 minutes, Priority: STAT, Start date: 07/12/16 8:47:00 CDT, Stop date: 07/12/16 8:47:00 CDTNotes: For IV push reconstitute with 10 ml 0.9% sodium chloride and push over 2 minutes. (Same as: Protonix) Inactive 07/12/2016 [facility] Morphine 4 mg, 1 mL, Route: IVP, Drug form: INJ, ONCE, Dosing Weight 77.273, kg, Priority: STAT, Start date: 07/12/16 8:47:00 CDT, Stop date: 07/12/16 8:47:00 CDTNotes: (Same as:MORPhine Sulfate) Inactive 07/12/2016 [facility] Ondansetron 4 mg, 2 mL, Route: IVP, Drug form: INJ, ONCE, Dosing Weight 77.273, kg, Priority: STAT, Start date: 07/12/16 8:47:00 CDT, Stop date: 07/12/16 8:47:00 CDTNotes: (Same as: Zofran) MEDICATION WASTE * Product Size: 4 mg Product Wasted: ___ mg Inactive 07/12/2016 [facility] mesalamine 800 MG Delayed Release Oral Tablet [Asacol] Asacol HD 800 mg tablet,delayed release Active [facility] Azithromycin 250 MG Oral Tablet Zithromax Z-Rikki 250 mg tablet TAKE 2 TABLETS (500 MG) BY ORAL ROUTE ONCE DAILY FOR 1 DAY THEN 1 TABLET (250 MG) BY ORAL ROUTE ONCE DAILY FOR 4 DAYS Active [facility] Brompheniramine Maleate 0.4 MG/ML / Dextromethorphan Hydrobromide 2 MG/ML / Pseudoephedrine Hydrochloride 6 MG/ML Oral Solution [Bromfed DM] Bromfed DM 2 mg-30 mg-10 mg/5 mL syrup Take 10 mL every 4 hours by oral route as needed. Active [facility] Prednisone 20 MG Oral Tablet prednisone 20 mg tablet Take 1 tablet twice a day by oral route as directed for 4 days. Active [facility] 200 ACTUAT Albuterol 0.09 MG/ACTUAT Dry Powder Inhaler [ProAir] ProAir RespiClick 90 mcg/actuation breath activated INHALE TWO (2) PUFF(S) BY MOUTH EVERY 4 TO 6 HOURS NEEDED. Active [facility] icosapent ethyl 1000 MG Oral Capsule [Vascepa] Vascepa 1 gram capsule Active [facility] Paxil Paxil Active [facility] Wellbutrin Wellbutrin Active [facility] Bupropion Hydrochloride 75 MG Oral Tablet bupropion HCl 75 mg tablet Active [facility] Paroxetine Hydrochloride 20 MG Oral Tablet paroxetine 20 mg tablet Active [facility] Allergies, Adverse Reactions, Alerts Substance Category Reaction Severity Reaction type Status Date Reported Comments Source Immunizations Immunization Date Given Site Status Last Updated Comments Source influenza, unspecified formulation 06/17/2018 completed [facility] pneumococcal 23-valent vaccine 07/22/2016 Left deltoid completed [facility] Results Order Name Results Value Reference Range Date Interpretation Comments Source URINE AND STOOL POC UA Bld Trace *NA* (12/04/18 3:10 PM) Negative 12/04/2018 [facility] URINE AND STOOL POC UA Uro 0.2 EU/dL 0.1 - 1.0 12/04/2018 [facility] URINE AND STOOL POC UA LeukEst Negative *NA* (12/04/18 3:10 PM) Negative 12/04/2018 [facility] URINE AND STOOL POC UA Nit Negative *NA* (12/04/18 3:10 PM) Negative 12/04/2018 [facility] URINE AND STOOL POC UA SG >=1.030 *ABN* (12/04/18 3:10 PM) <=1.030 12/04/2018 [facility] URINE AND STOOL POC UA Turbidity Clear *NA* (12/04/18 3:10 PM) Clear 12/04/2018 [facility] URINE AND STOOL POC UA Prot Trace mg/dL Negative mg/dL 12/04/2018 [facility] URINE AND STOOL POC UA pH 5.5 5.0 - 8.0 12/04/2018 [facility] URINE AND STOOL POC UA Ket Negative mg/dL Negative mg/dL 12/04/2018 [facility] URINE AND STOOL POC UA Glu Negative mg/dL Negative mg/dL 12/04/2018 [facility] URINE AND STOOL POC UA Bili Negative *NA* (12/04/18 3:10 PM) Negative 12/04/[facility] URINE AND STOOL POC UA Color Yellow *NA* (12/04/18 3:10 PM) Yellow 12/04/2018 [facility] Urinalysis macro (dipstick) panel - Urine COLOR : Netta 11/02/2018 [facility] Urinalysis macro (dipstick) panel - Urine CLARITY : Cloudy 11/02/2018 [facility] Urinalysis macro (dipstick) panel - Urine LEUKOCYTES : Small 11/02/2018 [facility] Urinalysis macro (dipstick) panel - Urine NITRITES : Negative 11/02/2018 [facility] Urinalysis macro (dipstick) panel - Urine UROBILINOGEN : Normal 11/02/2018 [facility] Urinalysis macro (dipstick) panel - Urine PROTEIN : Negative 11/02/2018 [facility] Urinalysis macro (dipstick) panel - Urine pH : 7.0 11/02/2018 [facility] Urinalysis macro (dipstick) panel - Urine BLOOD : Large 11/02/2018 [facility] Urinalysis macro (dipstick) panel - Urine SPECIFIC GRAVITY : 1.025 11/02/2018 [facility] Urinalysis macro (dipstick) panel - Urine KETONES : Negative 11/02/2018 [facility] Urinalysis macro (dipstick) panel - Urine BILIRUBIN : Negative 11/02/2018 [facility] Urinalysis macro (dipstick) panel - Urine GLUCOSE Negative 11/02/[address] [facility] [address] Renal Stone CT PROCEDURE: CT ABDOMEN AND PELVIS WITHOUT CONTRAST Clinical Indication: Abdominal pain, acute - renal stone protocol. Right flank pain. Dysuria. Vaginal discharge. Comparison: June 2016 TECHNIQUE: Noncontrasted helical imaging was performed from the kidneys through the symphysis as a renal stone protocol with multiplanar reformations. CT imaging performed at this location utilizes radiation dose optimization techniques which include one or more of the following: -Automated exposure control -Adjustment of the mA and/or kV according to patient size -Use of iterative reconstruction technique CT Radiation Dose DLP 1128.96 mGy-cm FINDINGS: This examination is limited for the evaluation of abdominal viscera and vascular structures due to lack of intravenous contrast, which is standard for urinary calculus assessment CT. KIDNEYS: Distal right ureteral calculus at the ureterovesical junction estimated 1 mm, best demonstrated axial series 2 image 193, coronal series 602B, image 71. Mild right ureteral dilatation, pelvocaliectasis and perinephric periureteral stranding. No additional urinary calculi. The renal contours are normal. LOWER CHEST: Aside from mild dependent change, the lung bases are clear. SOLID ORGANS: The liver is normal. Multiple partially calcified stones within otherwise unremarkable gallbladder. No biliary dilatation. The spleen, pancreas, adrenal glands are normal. BOWEL: The unopacified stomach, small bowel and colon are unremarkable. Normal appendix. PERITONEUM: No free intraperitoneal fluid or air. RETROPERITONEUM: No adenopathy. Aorta is normal. PELVIS: 1.9 cm water attenuation right ovarian cyst with nearly imperceptible wall compatible with dominant follicle/follicular cyst and within physiologic limits. Uterus and adnexa otherwise unremarkable. The urinary bladder is normal. MUSCULOSKELETAL: The skeleton is intact. IMPRESSION: 1. Distal right ureteral calculus with mild hydronephrosis and perinephric stranding. 2. Cholelithiasis. SL: AMEYA 11/02/2018 - - Read by: Denilson Bates MD Dictated Date/time: 11/02/18 20:27 Electronically Signed by: Denilson Bates MD 11/02/18 20:32 FINAL REPORT [facility] Results negative 11/02/2018 [facility] Influenza A negative 08/21/2018 [facility] Influenza B negative 08/21/2018 [facility] Influenza A negative 10/16/2017 [facility] Influenza B negative 10/16/2017 [facility] RESULT negative 10/16/2017 [facility] SWAB LOCATION Left and Right tonsillar pillars 10/16/[facility] Eosinophils # 0.2 K/CMM 0.0 - 0.5 07/21/2016 [facility] HEMATOLOGY Monocytes # 0.8 K/CMM 0.0 - 0.8 07/21/2016 [facility] HEMATOLOGY Basophils # 0.0 K/CMM 0.0 - 0.2 07/21/2016 [facility] HEMATOLOGY Segs-Bands # 4.3 K/CMM 1.5 - 8.1 07/21/2016 [facility] HEMATOLOGY Lymphocytes # 3.2 K/CMM 1.0 - 5.5 07/21/2016 [facility] Basophils 0.4 % 0.0 - 1.0 07/21/2016 [facility] Segs 50.1 % 45.0 - 75.0 07/21/2016 [facility] Lymphocytes 37.1 % 20.0 - 40.0 07/21/2016 [facility] Eosinophils 2.8 % 0.0 - 4.0 07/21/2016 [facility] Monocytes 9.6 % 2.0 - 12.0 07/21/2016 [facility] WBC 8.7 K/CMM 3.7 - 10.4 07/21/2016 [facility] RBC 3.66 M/CMM 4.20 - 5.40 07/21/2016 [facility] MCHC 31.5 g/dL 32.0 - 36.0 07/21/2016 [facility] MCH 28.8 pg 27.0 - 31.0 07/21/2016 [facility] Hgb 10.5 g/dL 12.0 - 16.0 07/21/2016 [facility] MCV 91.5 fL 80.0 - 98.0 07/21/2016 [facility] Hct 33.5 % 36.0 - 48.0 07/21/2016 [facility] Platelet 484 K/CMM 133 - 450 07/21/2016 [facility] MPV 7.6 fL 7.4 - 10.4 07/21/2016 [facility] RDW 14.2 % 11.5 - 14.5 07/21/2016 [facility] Abdomen AP DX Abdomen AP DX Patient Name: ROCAEL HOLT : 1975; Age: 40 years y/o Female MR: [id number] Study: Abdomen AP DX dated 07/20/2016 Clinical Indication: Abdominal distension; Comparison: 07/19/2016 There is a paucity of bowel gas in the left mid and lower abdomen and about the pelvis. No dilated loops of bowel identified about the abdomen or pelvis. No abnormal abdominal or pelvic calcifications. The bladder appears mildly distended. SL: [id number] 07/20/2016 - - Read by: Niko Riley MD Dictated Date/time: 07/20/16 14:20 Electronically Signed by: Niko Riley MD 07/20/16 14:22 FINAL REPORT [facility] Abdomen AP DX Abdomen AP DX Patient Name: ROCAEL HOLT : 1975; Age: 40 years y/o Female MR: [id number] Study: Abdomen AP DX 07/19/2016 10:42 AM CDT Ordering Physician: Rene Lyle MD Clinical Indication: Abdominal distension; Comparison: 07/18/2016 [facility] Diminishing colonic distention. The distal transverse colon has decreased in size, but there continues to be some nodularity of its izquierdo. Increasing small bowel gas without dilatation. No bony abnormality, mass, or abnormal calcifications. SL: [id number] 07/19/2016 - - Read by: Keyur Calero MD Dictated Date/time: 07/19/16 17:25 Electronically Signed by: Keyur Calero MD 07/19/16 17:29 FINAL REPORT [facility] CHEM PANEL Magnesium Lvl 2.6 mg/dL 1.8 - 2.4 07/19/2016 [facility] CHEM PANEL Procalcitonin Lvl 0.08 ng/mL 0.00 - 0.10 07/19/2016 [facility] CHEM PANEL Globulin 3.2 g/dL 2.7 - 4.2 07/19/2016 [facility] CHEM PANEL B/C Ratio 12 6 - 25 07/19/2016 [facility] CHEM PANEL A/G Ratio 0.6 0.7 - 1.6 07/19/2016 [facility] CHEM PANEL AGAP 10.3 meq/L 10.0 - 20.0 07/19/2016 [facility] CHEM PANEL AST 36 unit/L 0 - 37 07/19/2016 [facility] CHEM PANEL ALT 24 unit/L 0 - 65 07/19/2016 [facility] CHEM PANEL Bili Total 0.3 mg/dL 0.2 - 1.3 07/19/2016 [facility] CHEM PANEL Alk Phos 71 unit/L 39 - 136 07/19/2016 [facility] CHEM PANEL Albumin Lvl 1.8 g/dL 3.5 - 5.0 07/19/2016 [facility] CHEM PANEL Total Protein 5.0 g/dL 6.4 - 8.4 07/19/2016 [facility] CHEM PANEL eGFR 114 mL/min/1.73m2 07/19/2016 Result Comment: The eGFR is calculated using the [...] from the National Kidney Disease Education Program (NKDEP) which additionally recommends that when the eGFR is used in patients with extremes of body mass index for purposes of drug dosing, the eGFR should be multiplied by the estimated BMI. [facility] CHEM PANEL CO2 26 meq/L 24 - 32 07/19/2016 [facility] CHEM PANEL Calcium Lvl 7.4 mg/dL 8.5 - 10.5 07/19/2016 [facility] CHEM PANEL Sodium Lvl 140 meq/L 135 - 145 07/19/2016 [facility] CHEM PANEL Chloride Lvl 108 meq/L 95 - 109 07/19/2016 [facility] CHEM PANEL Potassium Lvl 4.3 meq/L 3.5 - 5.1 07/19/2016 [facility] CHEM PANEL Creatinine Lvl 0.60 mg/dL 0.50 - 1.40 07/19/2016 [facility] CHEM PANEL BUN 7 mg/dL 7 - 22 07/19/2016 [facility] CHEM PANEL Glucose Lvl 98 mg/dL 70 - 99 07/19/2016 [facility] CHEM PANEL Phosphorus 2.9 mg/dL 2.5 - 4.5 07/19/2016 [facility] Hct 29.8 % 36.0 - 48.0 07/19/2016 [facility] MCV 88.9 fL 80.0 - 98.0 07/19/2016 [facility] MCH 28.5 pg 27.0 - 31.0 07/19/2016 [facility] MCHC 32.1 g/dL 32.0 - 36.0 07/19/2016 [facility] RDW 14.1 % 11.5 - 14.5 07/19/2016 [facility] Platelet 370 K/CMM 133 - 450 07/19/2016 [facility] MPV 7.5 fL 7.4 - 10.4 07/19/2016 [facility] Hgb 9.6 g/dL 12.0 - 16.0 07/19/2016 [facility] WBC 5.0 K/CMM 3.7 - 10.4 07/19/2016 [facility] RBC 3.35 M/CMM 4.20 - 5.40 07/19/2016 [facility] Lymphocytes # 1.3 K/CMM 1.0 - 5.5 07/19/2016 [facility] HEMATOLOGY Monocytes # 0.7 K/CMM 0.0 - 0.8 07/19/2016 [facility] HEMATOLOGY Basophils # 0.0 K/CMM 0.0 - 0.2 07/19/2016 [facility] HEMATOLOGY Eosinophils # 0.1 K/CMM 0.0 - 0.5 07/19/2016 [facility] HEMATOLOGY Segs 58.0 % 45.0 - 75.0 07/19/2016 [facility] HEMATOLOGY Monocytes 14.1 % 2.0 - 12.0 07/19/2016 [facility] HEMATOLOGY Lymphocytes 25.3 % 20.0 - 40.0 07/19/2016 [facility] HEMATOLOGY Eosinophils 2.1 % 0.0 - 4.0 07/19/2016 [facility] HEMATOLOGY Basophils 0.5 % 0.0 - 1.0 07/19/2016 [facility] HEMATOLOGY Segs-Bands # 2.9 K/CMM 1.5 - 8.1 07/19/2016 [facility] Abdomen AP DX Abdomen AP DX Patient Name: ROCAEL HOLT : 1975; Age: 40 years y/o Female MR: [id number] Study: Abdomen AP DX 07/18/2016 10:00 AM CDT Ordering Physician: Mikel Tamayo MD Clinical Indication: Abdominal distension; Comparison: 07/17/2016 [facility] Diminishing distention of the transverse colon with the hepatic flexure now measuring 5.2 cm and the transverse colon 4 cm in diameter. There continue to be some thickening and nodularity of the izquierdo of the transverse colon. The cecum measures approximately 9.9 cm in diameter. Paucity of small bowel gas. No bony abnormality, mass, or abnormal calcifications. SL: [id number] 07/18/2016 - - Read by: Keyur Calero MD Dictated Date/time: 07/19/16 07:27 Electronically Signed by: Keyur Calero MD 07/19/16 07:30 FINAL REPORT [facility] CHEM PANEL Phosphorus 2.5 mg/dL 2.5 - 4.5 07/18/2016 [facility] CHEM PANEL Magnesium Lvl 2.4 mg/dL 1.8 - 2.4 07/18/2016 [facility] CHEM PANEL Globulin 3.1 g/dL 2.7 - 4.2 07/18/2016 [facility] CHEM PANEL A/G Ratio 0.5 0.7 - 1.6 07/18/2016 [facility] CHEM PANEL AGAP 12.9 meq/L 10.0 - 20.0 07/18/2016 [facility] CHEM PANEL B/C Ratio 7 6 - 25 07/18/2016 [facility] CHEM PANEL eGFR 114 mL/min/1.73m2 07/18/2016 Result Comment: The eGFR is calculated using the [...] from the National Kidney Disease Education Program (NKDEP) which additionally recommends that when the eGFR is used in patients with extremes of body mass index for purposes of drug dosing, the eGFR should be multiplied by the estimated BMI. [facility] CHEM PANEL Alk Phos 67 unit/L 39 - 136 07/18/2016 [facility] CHEM PANEL Bili Total 0.3 mg/dL 0.2 - 1.3 07/18/2016 [facility] CHEM PANEL AST 26 unit/L 0 - 37 07/18/2016 [facility] CHEM PANEL Creatinine Lvl 0.60 mg/dL 0.50 - 1.40 07/18/2016 [facility] CHEM PANEL Sodium Lvl 139 meq/L 135 - 145 07/18/2016 [facility] CHEM PANEL Potassium Lvl 3.9 meq/L 3.5 - 5.1 07/18/2016 [facility] CHEM PANEL BUN 4 mg/dL 7 - 22 07/18/2016 [facility] CHEM PANEL Glucose Lvl 120 mg/dL 70 - 99 07/18/2016 [facility] CHEM PANEL ALT 17 unit/L 0 - 65 07/18/2016 [facility] CHEM PANEL Albumin Lvl 1.6 g/dL 3.5 - 5.0 07/18/2016 [facility] CHEM PANEL Total Protein 4.7 g/dL 6.4 - 8.4 07/18/2016 [facility] CHEM PANEL Calcium Lvl 7.2 mg/dL 8.5 - 10.5 07/18/2016 [facility] CHEM PANEL CO2 24 meq/L 24 - 32 07/18/2016 [facility] CHEM PANEL Chloride Lvl 106 meq/L 95 - 109 07/18/2016 [facility] CHEM PANEL Procalcitonin Lvl 0.19 ng/mL 0.00 - 0.10 07/18/2016 [facility] Hct 29.5 % 36.0 - 48.0 07/18/2016 [facility] RBC 3.26 M/CMM 4.20 - 5.40 07/18/2016 [facility] Hgb 9.5 g/dL 12.0 - 16.0 07/18/2016 [facility] MCV 90.4 fL 80.0 - 98.0 07/18/2016 [facility] MCH 29.1 pg 27.0 - 31.0 07/18/2016 [facility] WBC 5.0 K/CMM 3.7 - 10.4 07/18/2016 [facility] MCHC 32.2 g/dL 32.0 - 36.0 07/18/2016 [facility] Platelet 366 K/CMM 133 - 450 07/18/2016 [facility] MPV 7.7 fL 7.4 - 10.4 07/18/2016 [facility] RDW 13.9 % 11.5 - 14.5 07/18/2016 [facility] Basophils # 0.0 K/CMM 0.0 - 0.2 07/18/2016 [facility] Metamyelocytes 3.0 % 0.0 - 1.0 07/18/2016 [facility] Eosinophils # 0.1 K/CMM 0.0 - 0.5 07/18/2016 [facility] Monocytes # 0.5 K/CMM 0.0 - 0.8 07/18/2016 [facility] Lymphocytes # 0.6 K/CMM 1.0 - 5.5 07/18/2016 [facility] Eosinophils 2.0 % 0.0 - 4.0 07/18/2016 [facility] Basophils 1.0 % 0.0 - 1.0 07/18/2016 [facility] Segs-Bands # 3.6 K/CMM 1.5 - 8.1 07/18/2016 [facility] Monocytes 10.0 % 2.0 - 12.0 07/18/2016 [facility] HEMATOLOGY Bands 11.0 % 0.0 - 11.0 07/18/2016 [facility] Lymphocytes 13.0 % 20.0 - 40.0 07/18/2016 [facility] HEMATOLOGY Segs 60.0 % 45.0 - 75.0 07/18/2016 [facility] HEMATOLOGY RBC Morph Normal (07/18/16 5:28 AM) 07/18/2016 [facility] HEMATOLOGY Plt Morph Normal (07/18/16 5:28 AM) 07/18/2016 [facility] CHEM PANEL Calcium Lvl 6.8 mg/dL 8.5 - 10.5 07/17/2016 Result Comment: Critical Result(s) called to jasmin resendiz at 07/17/2016 11:27 by cz. Read back OK. [facility] PARATHYROID PROFILE Ca Norm WB 1.06 mMol/L 1.05 - 1.25 07/17/2016 [facility] PARATHYROID PROFILE Ca Ion WB 0.99 mMol/L 1.05 - 1.25 07/17/2016 [facility] CHEM PANEL Phosphorus 1.8 mg/dL 2.5 - 4.5 07/17/2016 [facility] CHEM PANEL Magnesium Lvl 2.2 mg/dL 1.8 - 2.4 07/17/2016 [facility] CHEM PANEL eGFR 114 mL/min/1.73m2 07/17/2016 Result Comment: The eGFR is calculated using the [...] from the National Kidney Disease Education Program (NKDEP) which additionally recommends that when the eGFR is used in patients with extremes of body mass index for purposes of drug dosing, the eGFR should be multiplied by the estimated BMI. [facility] CHEM PANEL Glucose Lvl 107 mg/dL 70 - 99 07/17/2016 [facility] CHEM PANEL BUN 2 mg/dL 7 - 22 07/17/2016 [facility] CHEM PANEL Chloride Lvl 106 meq/L 95 - 109 07/17/2016 [facility] CHEM PANEL Potassium Lvl 3.6 meq/L 3.5 - 5.1 07/17/2016 [facility] CHEM PANEL Creatinine Lvl 0.60 mg/dL 0.50 - 1.40 07/17/2016 [facility] CHEM PANEL Sodium Lvl 138 meq/L 135 - 145 07/17/2016 [facility] CHEM PANEL CO2 25 meq/L 24 - 32 07/17/2016 [facility] CHEM PANEL AST 5 unit/L 0 - 37 07/17/2016 [facility] CHEM PANEL Alk Phos 63 unit/L 39 - 136 07/17/2016 [facility] CHEM PANEL Bili Total 0.3 mg/dL 0.2 - 1.3 07/17/2016 [facility] CHEM PANEL Total Protein 4.4 g/dL 6.4 - 8.4 07/17/2016 [facility] CHEM PANEL B/C Ratio 3 6 - 25 07/17/2016 [facility] CHEM PANEL AGAP 10.6 meq/L 10.0 - 20.0 07/17/2016 [facility] CHEM PANEL ALT 13 unit/L 0 - 65 07/17/2016 [facility] CHEM PANEL A/G Ratio 0.5 0.7 - 1.6 07/17/2016 [facility] CHEM PANEL Albumin Lvl 1.5 g/dL 3.5 - 5.0 07/17/2016 [facility] CHEM PANEL Globulin 2.9 g/dL 2.7 - 4.2 07/17/2016 [facility] CHEM PANEL Procalcitonin Lvl 0.30 ng/mL 0.00 - 0.10 07/17/2016 [facility] HEMATOLOGY Bands 13.0 % 0.0 - 11.0 07/17/2016 [facility] HEMATOLOGY Atypical Lymphs 0.0 % <=0.0 % 07/17/2016 [facility] HEMATOLOGY RBC Morph Normal (07/17/16 5:22 AM) 07/17/2016 [facility] HEMATOLOGY Plt Morph Normal (07/17/16 5:22 AM) 07/17/2016 [facility] Abdomen AP DX Abdomen AP DX Abdomen AP DX 07/17/2016 8:30 AM CDT Ordering Physician: Mikel Tamayo MD CLINICAL INDICATION: Abdominal distension; ulcerative colitis COMPARISON: Prior few days TECHNIQUE: Routine supine AP view of the abdomen was obtained. FINDINGS: Air and stool are visualized throughout the colon and rectum. No dilated loops of small bowel with air-fluid levels are present. No gross free air is present. No unexpected radiopaque foreign body is present. Bones are normal. IMPRESSION: No evidence of bowel obstruction or gross pneumoperitoneum. SL: [id number] 07/17/2016 - - Read by: Juan Carlos Lane MD Dictated Date/time: 07/17/16 09:59 Electronically Signed by: Juan Carlos Lane MD 07/17/16 10:00 FINAL REPORT [facility] Bands 34.0 % 0.0 - 11.0 07/16/2016 [facility] Atypical Lymphs 0.0 % <=0.0 % 07/16/2016 [facility] Plt Morph Normal (07/16/16 5:25 AM) 07/16/2016 [facility] RBC Morph Normal (07/16/16 5:25 AM) 07/16/2016 [facility] Abdomen AP DX Abdomen AP DX Abdomen AP DX 07/16/2016 9:00 AM CDT Ordering Physician: Lizzy Bob CLINICAL INDICATION: Abdominal distension; COMPARISON: None TECHNIQUE: Routine supine AP view of the abdomen was obtained. FINDINGS: The mid transverse colon remains prominently distended with air. Distal one half of the colon and rectum reveals only mild amount of air and stool. However, no dilated loops of small bowel with air-fluid levels are present. No gross free air is present. No unexpected radiopaque foreign body is present. Bones are normal. IMPRESSION: Probable colonic ileus. No gross pneumoperitoneum. SL: [id number] 07/16/2016 - - Read by: Juan Carlos Lane MD Dictated Date/time: 07/16/16 07:50 Electronically Signed by: Juan Carlos Lane MD 07/16/16 07:51 FINAL REPORT [facility] CHEM PANEL Bili Direct null 0.0 - 0.3 07/15/2016 [facility] CHEM PANEL Bili Indirect Unable to Calculate 0.0 - 1.0 07/15/2016 [facility] HEMATOLOGY PTT 25.7 s 22.9 - 35.8 07/15/2016 [facility] HEMATOLOGY INR 1.39 0.85 - 1.17 07/15/2016 [facility] HEMATOLOGY PT 17.3 s 12.0 - 14.7 07/15/2016 [facility] Abdomen/Pelvis w IV contrast CT Abdomen/Pelvis w IV contrast CT Clinical Indication:40 years Female generalized abdominal pain, has C. difficile and MRSA; Comparison: CT abdomen and pelvis 07/12/2016, abdominal radiographs from same date TECHNIQUE: Helical imaging was performed diaphragm through the symphysis with multiplanar reformations obtained. IV CONTRAST: 99 mL Omnipaque 300 GI CONTRAST: None DLP: 1587 mGy-cm FINDINGS: VISUALIZED LUNG BASES: Unremarkable. ABDOMINAL SOLID ORGANS: The contrast-enhanced images of the liver, spleen, pancreas, gallbladder, adrenals and kidneys are normal. The extrahepatic duct/ common bile duct appears unremarkable. STOMACH AND BOWEL: Stomach is unremarkable. The appendix is normal. There is mild wall thickening of the transverse colon through the rectum with adjacent stranding. Mildly dilated air-filled transverse colon. There is loss of the haustral markings, primarily of the transverse and proximal descending colon. There is also some intraluminal nodularity of the colonic wall. PERITONEUM AND RETROPERITONEUM: There is no lymphadenopathy. There is no pneumoperitoneum. There is no ascites. The retroperitoneal region appears unremarkable. VASCULAR STRUCTURES: The abdominal aorta appears unremarkable. There are widely patent bilateral renal arteries. The mesenteric arteries appear unremarkable. The inferior vena cava appears normal. The renal veins, mesenteric veins and portal vein appear unremarkable. Incidental circumaortic left renal vein. BLADDER: The bladder appears unremarkable. BONES AND SOFT TISSUES: There are no suspicious osseous lesions. No acute osseous abnormalities. IMPRESSION: 1. No new abnormalities in the abdomen or pelvis. 2. Grossly unchanged appearance of the transverse, descending, and sigmoid colon, and rectum with mild wall thickening and adjacent stranding, and mild intraluminal nodularity compatible with colitis. Infectious colitis (including toxic megacolon), and inflammatory colitis remain in the differential. SL: [id number] 07/15/2016 - - Read by: Mckinley Ocampo MD Dictated Date/time: 07/15/16 11:28 Electronically Signed by: Mckinley Ocampo MD 07/15/16 11:41 FINAL REPORT [facility] CHEM PANEL Lactic Acid Lvl 2.0 mMol/L 0.5 - 2.2 07/15/2016 [facility] HEMATOLOGY Atypical Lymphs 0.0 % <=0.0 % 07/15/2016 [facility] HEMATOLOGY Metamyelocytes 4.0 % 0.0 - 1.0 07/15/2016 [facility] PARATHYROID PROFILE Ca Norm WB 1.01 mMol/L 1.05 - 1.25 07/15/2016 [facility] PARATHYROID PROFILE Ca Ion WB 0.97 mMol/L 1.05 - 1.25 07/15/2016 [facility] Abdomen AP DX Abdomen AP DX Patient Name: ROCAEL HOLT : 1975; Age: 40 years y/o Female MR: [id number] Study: Abdomen AP DX 07/15/2016 3:00 AM CDT Ordering Physician: Mikel Tamayo MD Clinical Indication: Abdominal distension; PLEASE COMMENT ON SIZE OF ANY SEGMENT OF DILATED COLON. Comparison: 07/06/2016 [facility] Much less stool is now present in the ascending colon. There is distention of the ascending and transverse colon with air. The transverse colon now measures up to 7.4 cm in maximal diameter (previously 7.8 cm). Some nodularity and/or thumbprinting of the izquierdo of the transverse colon is present. More air is now seen in nondilated small bowel. No bony abnormality, mass, or abnormal calcifications. SL: [id number] 07/15/2016 - - Read by: Keyur Calero MD Dictated Date/time: 07/15/16 08:45 Electronically Signed by: Keyur Calero MD 07/15/16 08:52 FINAL REPORT [facility] PARATHYROID PROFILE Ca Norm WB 1.00 mMol/L 1.05 - 1.25 07/14/2016 [facility] PARATHYROID PROFILE Ca Ion WB 0.96 mMol/L 1.05 - 1.25 07/14/2016 [facility] Abdomen AP DX Abdomen AP DX Abdomen AP DX 07/14/2016 9:00 AM CDT Ordering Physician: Lizzy Bob CLINICAL INDICATION: Abdominal distension; COMPARISON: Prior few days TECHNIQUE: Routine supine AP view of the abdomen was obtained. FINDINGS: Persistently prominently distended transverse colon measuring up to 7.5 cm in caliber is noted. Paucity of bowel gas noted in the distal left and sigmoid colon and rectum. No dilated loops of small bowel with air-fluid levels are present. No gross free air is present. No unexpected radiopaque foreign body is present. Bones are normal. IMPRESSION: Probable colonic ileus. No evidence of bowel obstruction or gross pneumoperitoneum. SL: [id number] 07/14/2016 - - Read by: Juan Carlos Lane MD Dictated Date/time: 07/14/16 16:50 Electronically Signed by: Juan Carlos Lane MD 07/14/16 16:51 FINAL REPORT [facility] BLOOD BANK RESULTS ABO/Rh O POS 07/14/2016 [facility] BLOOD BANK RESULTS Antibody Scrn Negative (07/14/16 8:46 AM) 07/14/2016 [facility] CHEM PANEL Lactic Acid Lvl 1.4 mMol/L 0.5 - 2.2 07/14/2016 [facility] BLOOD BANK RESULTS RBC product Product available (07/14/16 8:05 AM) 07/14/2016 [facility] HEMATOLOGY Metamyelocytes 3.0 % 0.0 - 1.0 07/14/2016 [facility] Abdomen AP DX Abdomen AP DX Abdomen AP DX 07/14/2016 3:00 AM CDT Ordering Physician: Mikel Tamayo MD CLINICAL INDICATION: Abdominal distension; PLEASE COMMENT ON SIZE OF ANY SEGMENT OF DILATED COLON. COMPARISON: Yesterday TECHNIQUE: Routine supine AP view of the abdomen was obtained. FINDINGS: Persistent prominent air distention of the transverse colon is noted. Generous amount stool is present in the right colon and cecum. Air and stool are visualized throughout the colon and rectum. No dilated loops of small bowel with air-fluid levels are present. No gross free air is present. No unexpected radiopaque foreign body is present. Bones are normal. IMPRESSION: No evidence of bowel obstruction or gross pneumoperitoneum. SL: [id number] 07/14/2016 - - Read by: Juan Carlos Lane MD Dictated Date/time: 07/14/16 07:29 Electronically Signed by: Juan Carlos Lane MD 07/14/16 07:31 FINAL REPORT [facility] URINE AND STOOL UA Urobilinogen null 0.1 - 1.0 07/13/2016 [facility] URINE AND STOOL UA WBC null 0 - 5 07/13/2016 [facility] URINE AND STOOL UA Sq Epi Occasional /LPF Few /LPF 07/13/2016 [facility] URINE AND STOOL UA Bili Negative *NA* (07/13/16 3:56 PM) Negative 07/13/2016 [facility] URINE AND STOOL UA Leuk Est Negative (07/13/16 3:56 PM) Negative 07/13/2016 [facility] URINE AND STOOL UA Nitrite Negative (07/13/16 3:56 PM) Negative 07/13/2016 [facility] URINE AND STOOL UA Blood Negative (07/13/16 3:56 PM) Negative 07/13/2016 [facility] URINE AND STOOL UA Ketones Negative mg/dL Negative mg/dL 07/13/2016 [facility] URINE AND STOOL UA Glucose Negative mg/dL Negative mg/dL 07/13/2016 [facility] URINE AND STOOL UA Protein Negative mg/dL Negative mg/dL 07/13/2016 [facility] URINE AND STOOL UA pH 5.0 5.0 - 8.0 07/13/2016 [facility] URINE AND STOOL UA Color Light Yellow *NA* (07/13/16 3:56 PM) Yellow 07/13/2016 [facility] URINE AND STOOL UA Spec Grav 1.006 <=1.030 07/13/2016 [facility] URINE AND STOOL UA Turbidity Clear (07/13/16 3:56 PM) Clear 07/13/2016 [facility] CHEM PANEL Lactic Acid Lvl 2.3 mMol/L 0.5 - 2.2 07/13/2016 [facility] CHEM PANEL Bili Direct null 0.0 - 0.3 07/13/2016 [facility] CHEM PANEL Bili Indirect Unable to Calculate 0.0 - 1.0 07/13/2016 [facility] HEMATOLOGY INR 1.15 0.85 - 1.17 07/13/2016 [facility] HEMATOLOGY PT 15.0 s 12.0 - 14.7 07/13/2016 [facility] Abdomen AP DX Abdomen AP DX Abdomen AP DX 07/13/2016 3:00 AM CDT Ordering Physician: Mikel Tamayo MD CLINICAL INDICATION: Abdominal distension; PLEASE COMMENT ON SIZE OF ANY SEGMENT OF DILATED COLON. COMPARISON: Abdominopelvic CT yesterday TECHNIQUE: Routine supine AP view of the abdomen was obtained. FINDINGS: The transverse colon is prominently distended and filled with air, measuring about 5.8 cm in caliber greatest caliber. Right colon cecum is filled with stool. The left colon and rectum demonstrates only mild amount of air. No dilated loops of small bowel with air-fluid levels are present. No gross free air is present. No unexpected radiopaque foreign body is present. Bones are normal. Visualized lung bases are clear. IMPRESSION: 1. No evidence of bowel obstruction or gross pneumoperitoneum. 2. Prominently distended transverse colon, right colon, cecum, with mainly stool present in the right colon and cecum. After reviewing abdominopelvic CT from yesterday, ulcerative colitis of the distal one half of the colon and rectum is possible. SL: [id number] 07/13/2016 - - Read by: Juan Carlos Lane MD Dictated Date/time: 07/13/16 08:15 Electronically Signed by: Juan Carlos Lane MD 07/13/16 08:18 FINAL REPORT [facility] HEMATOLOGY PTT 23.0 s 22.9 - 35.8 07/13/2016 [facility] HIV 1/2 Ab Negative *NA* (07/12/16 6:01 PM) Negative 07/12/2016 [facility] Proteinase-3 Antibody null <1.0 AI 07/12/2016 Result Comment: <1.0 AI No Antibody Detected > or=1.0 AI Antibody Detected Autoantibodies to proteinase-3 (MO-3) are accepted as characteristic for granulomatosis with polyangiitis (Willian's), and are detectable in 95% of the histologically proven cases. The cytoplasmic IFA pattern (c-ANCA) is based largely on autoantibody to MO-3 which serves as the primary antigen. These autoantibodies are present in the active disease state. Test Performed at: [id number] [address] Malik Yeboah MD, PhD [facility] S cerevisiae IgG null 07/12/2016 Result Comment: Reference Range: <=20 NEGATIVE 20.1-29.9 EQUIVOCAL >=30 POSITIVE Test Performed at: [facility] [address] [address] Malik Yeboah MD, PhD [facility] S cerevisiae IgA null 07/12/2016 Result Comment: Reference Range: <=20.0 NEGATIVE 20.1-24.9 EQUIVOCAL >=25.0 POSITIVE Test Performed at: [facility] [address] [address] Malik Yeboah MD, PhD [facility] Myeloperoxidase Ab null <1.0 AI 07/12/2016 Result Comment: <1.0 AI No Antibody Detected > [...] the active disease state. Test Performed at: [facility] [address] [place] [address] Malik Yeboah MD, PhD [facility] IMMUNOLOGY ANCA NEGATIVE NEGATIVE 07/12/2016 Result Comment: ANCA SCREEN INCLUDES EVALUATION FOR P-ANCA, C-ANCA, AND ATYPICAL P-ANCA. Test Performed at: [facility] [address] [place] [address] Malik Yeboah MD, PhD [facility] TUMOR MARKERS CEA 0.7 ng/mL 0.0 - 3.0 07/12/2016 [facility] BACTERIAL - SEROLOGY MRSA by PCR Negative (07/12/16 3:52 PM) 07/12/2016 [facility] MOLECULAR DIAGNOSTIC C difficile DNA Positive 1 *ABN* (07/12/16 3:48 PM) Negative 07/12/2016 Result Comment: "Significant Findings called to [facility] at 07/12/2016 21:28 by SBA.Read Back OK." [facility] PARASITOLOGY - SEROLOGY Giardia Ag Negative (07/12/16 3:48 PM) Negative 07/12/2016 [facility] URINE AND STOOL Fecal Leukocyte Many (07/12/16 3:48 PM) 07/12/2016 [facility] URINE AND STOOL Occult Bld Stl Positive *ABN* (07/12/16 3:48 PM) Negative 07/12/2016 [facility] CHEM PANEL Lipase Lvl 71 unit/L 73 - 393 07/12/2016 [facility] ENDOCRINOLOGY S Preg Negative *NA* (07/12/16 8:51 AM) Negative 07/12/2016 [facility] URINE AND STOOL UA Leuk Est Negative (07/12/16 8:51 AM) Negative 07/12/2016 [facility] URINE AND STOOL UA Blood Moderate *ABN* (07/12/16 8:51 AM) Negative 07/12/2016 [facility] URINE AND STOOL UA Nitrite Positive *ABN* (07/12/16 8:51 AM) Negative 07/12/2016 [facility] URINE AND STOOL UA Urobilinogen 1.0 EU/dL 0.1 - 1.0 07/12/2016 [facility] URINE AND STOOL UA Glucose Negative (07/12/16 8:51 AM) Negative 07/12/2016 [facility] URINE AND STOOL UA Color Yellow *NA* (07/12/16 8:51 AM) Yellow 07/12/2016 [facility] URINE AND STOOL UA Turbidity Slight Cloudy (07/12/16 8:51 AM) Clear 07/12/2016 [facility] URINE AND STOOL UA Spec Grav >=1.030 *ABN* (07/12/16 8:51 AM) <=1.030 07/12/2016 [facility] URINE AND STOOL UA Protein 30 mg/dL Negative mg/dL 07/12/2016 [facility] URINE AND STOOL UA pH 6.0 5.0 - 8.0 07/12/2016 [facility] URINE AND STOOL UA Bili Negative *NA* (07/12/16 8:51 AM) Negative 07/12/2016 [facility] URINE AND STOOL UA Ketones Negative *NA* (07/12/16 8:51 AM) Negative 07/12/2016 [facility] URINE AND STOOL UA Bacteria Many /HPF None Seen /HPF 07/12/2016 [facility] URINE AND STOOL UA CaOx Queta Moderate /HPF None Seen /HPF 07/12/2016 [facility] URINE AND STOOL UA WBC 3-5 /HPF None Seen /HPF 07/12/2016 [facility] URINE AND STOOL UA Sq Epi Many /LPF Few /LPF 07/12/2016 [facility] URINE AND STOOL UA RBC 0-2 /HPF 0 - 2 07/12/2016 [facility] ED Abdomen/Pelvis IV contrast only CT ED Abdomen/Pelvis IV contrast only CT Patient Name: ROCAEL HOLT : 1975; Age: 40 years y/o Female MR: [id number] Study: ED Abdomen/Pelvis IV contrast only CT 07/12/2016 9:37 AM CDT Ordering Physician:Junior Zaldivar DO Clinical Indication: Abdominal pain, acute; bilateral lower quadrant abdominal pain Comparison: 04/27/[address] scan of the abdomen and pelvis TECHNIQUE: Helical imaging was performed from the diaphragms through the symphysis with multiplanar reformations obtained. IV CONTRAST: 84 mL Omnipaque GI CONTRAST: None FINDINGS: SOLID ORGANS: No abnormalities identified in the liver, spleen, gallbladder, biliary system, pancreas, kidneys, or adrenal glands. PERITONEUM AND RETROPERITONEUM: No free intraperitoneal fluid or air. No adenopathy. The aorta is normal. Circumaortic left renal vein. BOWEL: There is segmental thickening of the izquierdo of the transverse, descending, and sigmoid colon with infiltration of some of the pericolonic fat, this infiltration most pronounced in the rectosigmoid region. The transverse colon is distended measuring up to 5.3 cm in diameter. There is nodularity of its mucosal surface best seen on the precontrast images. Formed stool is noted in the cecum and ascending colon. No small bowel dilatation. Normal appendix. PELVIS: No bladder or obvious uterine abnormalities. LOWER CHEST: No abnormalities in the visualized lung bases. MUSCULOSKELETAL AND SOFT TISSUE: No abnormalities identified. IMPRESSION: Colonic and pericolonic changes as described above most consistent with an infectious or inflammatory colitis (history of ulcerative colitis per patient). Findings worrisome for developing toxic megacolon involving the transverse colon. SL: [id number] 07/12/2016 - - Read by: Keyur Calero MD Dictated Date/time: 07/12/16 11:48 Electronically Signed by: Keyur Calero MD 07/12/16 12:05 FINAL REPORT [facility] Vital Signs Vital Sign Value Date Comments Source BMI Calculated 40.76 12/04/2018 [facility] Weight 94.659 12/04/2018 [facility] Height 152.4 cm 12/04/2018 [facility] Heart Rate 87 12/04/2018 [facility] Systolic (mm Hg) 108 12/04/2018 [facility] Diastolic (mm Hg) 73 12/04/2018 [facility] Diastolic (mm Hg) 68 11/02/2018 [facility] Height 60 11/02/2018 [facility] Systolic (mm Hg) 110 11/02/2018 [facility] Weight 212 11/02/2018 [facility] Diastolic (mm Hg) 78 08/21/2018 [facility] Height 60 08/21/2018 [facility] Systolic (mm Hg) 110 08/21/2018 [facility] Weight 204 08/21/2018 [facility] Height 152.4 cm 12/08/2017 [facility] Weight 90.909 12/08/2017 [facility] BMI Calculated 39.14 12/08/2017 [facility] Diastolic (mm Hg) 78 10/16/2017 [facility] Height 60 10/16/2017 [facility] Systolic (mm Hg) 130 10/16/2017 [facility] Weight 193 10/16/2017 [facility] Respitory Rate 18 07/22/2016 [facility] Temperature Oral (F) 98.8 F 07/22/2016 [facility] Heart Rate 103 07/22/2016 [facility] Systolic (mm Hg) 93 07/22/2016 [facility] Diastolic (mm Hg) 63 07/22/2016 [facility] Respitory Rate 20 07/21/2016 [facility] Heart Rate 99 07/21/2016 [facility] Systolic (mm Hg) 93 07/21/2016 [facility] Diastolic (mm Hg) 60 07/21/2016 [facility] Temperature Oral (F) 98.4 F 07/21/2016 [facility] Respitory Rate 20 07/21/2016 [facility] Systolic (mm Hg) 103 07/21/2016 [facility] Diastolic (mm Hg) 61 07/21/2016 [facility] Heart Rate 131 07/21/2016 [facility] Temperature Oral (F) 98.8 F 07/21/2016 [facility] BMI Calculated 33.27 07/12/2016 [facility] Weight 77.273 07/12/2016 [facility] Height 152.4 cm 07/12/2016 [facility] BMI Calculated 33.27 07/12/2016 [facility] Weight 77.273 07/12/2016 [facility] Height 152.4 cm 07/12/2016 [facility] Encounters Location Location Details Encounter Type Encounter Number Reason For Visit Attending Provider ADM Date DC Date Status Source [facility] Inpatient [id number] Nickgisele Dariela 07/12/2016 07/22/2016 [facility] [place] [facility] Elizabeth Meyer, CREDIT REFERENCE CLERK: [address] [place] [address], Ph. [id number] Vera Betsy [facility]/16/[facility] [place] [facility] Elizabeth Meyer, CREDIT REFERENCE CLERK: [address] [place] [address], Ph. [id number] Vera Betsy [id number] 12/08/2017 12/09/2017 [facility] [place] [facility] BLANCA MosherC: [address] [place] [address], Ph. [id number] Bonnie Angulotiz 08/21/2018 [facility] [place] [id number] Niyah Bagleyroy, [facility]: [address] [facility], [place] [address], Ph. [id number] Niyah Bagleyroy 11/02/2018 [facility] Outpatient [id number] [facility] 12/04/2018 [facility] Outpatient [id number] [facility] 12/04/2018 12/05/2018 [facility] Procedures Procedure Code Date Perfomer Comments Source 10/17/2007 [facility] 10/17/2000 [facility] Tonsillectomy 10/17/1979 [facility] section [id number] [facility] section [id number] [facility]
--- OUTSIDE RECORDS SUMMARY | 2019-01-26 12:51 | XMS REPORT | Encounter Summary ---
Author Organization Unknown Address [address] [place] [address] Phone [phone] Reason for Visit Medical Complaint Instructions 1. Acute sinusitis sinusitis: care instructions azithromycin 250 mg tablet prednisone 20 mg tablet rapid strep group A, throat rapid flu (A+B) 2. Body mass index 30+ - obesity 3. Cough cough: care instructions Bromfed DM 2 mg-30 mg-10 mg/5 mL syrup 4. History of asthma ProAir RespiClick 90 mcg/actuation breath activated Discussion Note: None recorded. Plan of Care Reminders Provider Appointments None recorded. Lab Rapid Strep Group a, Throat 10/16/2017 [facility] Rapid Flu (A+B) 10/16/2017 [facility] Referral None recorded. Procedures None recorded. Surgeries None recorded. Imaging None recorded. Medications Name Start Date Asacol HD 800 mg tablet,delayed release azithromycin 250 mg tablet TAKE 2 TABLETS (500 MG) BY ORAL ROUTE ONCE DAILY FOR 1 DAY THEN 1 TABLET (250 MG) BY ORAL ROUTE ONCE DAILY FOR 4 DAYS Bromfed DM 2 mg-30 mg-10 mg/5 mL syrup Take 10 mL every 4 hours by oral route as needed for 5 days. prednisone 20 mg tablet Take 1 tablet twice a day by oral route as directed for 4 days. ProAir RespiClick 90 mcg/actuation breath activated Inhale 2 puffs every 4-6 hours by inhalation route as needed for 30 days. Vascepa 1 gram capsule Medications Administered None recorded. Vitals Height Weight BMI Blood Pressure 5 ft 193 lbs 37.7 kg/m2 130/78 mm[Hg] Lab Results Date Name Specimen Result Interpretation Description Value Range Status Address Rapid Flu (A+B) Influenza a negative [facility]: [address] [place] [address] Influenza B negative [facility]: [address] [place] [address] Rapid Strep Group a, Throat Result negative [facility]: [address] [place] [address] Swab Location Left and Right tonsillar pillars [facility]: [address] [place] [address] Allergies Code Code System Name Reaction Severity Status Onset NKDA Problems None recorded. Procedures None recorded. Vaccine List None recorded. Social History Smoking Status Never Smoker Past Encounters 10/16/2017 Acute Sinusitis; Body Mass Index 30+ - Obesity; Cough; History of Asthma Elizaebth Meyer NP: [address] [place] [address], Ph. History of Present Illness Lnqrp-Pjbojjsdpq-Ljzeytq Reported By: Patient HPI: Location: head/sinuses, throat. Quality: productive cough, sore throat, colored phlegm, nasal/sinus congestion. Duration: 5days. Severity: moderate. Onset/Timing: gradual. Associated Symptoms: no sputum production, no shortness of breath, no wheezing, no change in number of pillows needed to sleep at night, no sweats, no significant weight gain, no significant weight loss, no vomiting, no diarrhea, no rash, no nausea, no fever, no muscle aches, no headache, morning cough, sore throat; chills body aches fever Review of Systems:ROS as noted in the HPI Review of Systems None recorded. Physical Exam Adult Basic Reported By: Patient Constitutional: General Appearance: obese. Level of Distress: mild distress, moderate distress. Ambulation: ambulating normally Psychiatric: Mental Status: active and alert. Orientation: to time, to place, to person Etj-Pmvv-Ohiqq-Throat: Ears: no lesions on external ear, no outer ear tenderness, EACs clear, TMs clear. Hearing: no hearing loss. Nose: no lesions on external nose, nares patent, no septal deviation, nasal passages clear, sinus tenderness, post nasal drip. Lips, Teeth, and Gums: no mouth or lip ulcers, no bleeding gums, normal dentition. Oropharynx: moist mucous membranes, no exudates, tonsils not enlarged, erythema Neck: Neck: supple, FROM. Lymph Nodes: no cervical LAD Lungs: Respiratory effort: no dyspnea, no tachypnea, no use of accessory muscles, no intercostal retractions. Auscultation: breath sounds normal Cardiovascular: Heart Auscultation: RRR, no murmurs Musculoskeletal:: Joints, Bones, and Muscles: normal movement of all extremities Neurologic: Gait and Station: normal gait, normal station
--- OUTSIDE RECORDS SUMMARY | 2019-01-26 12:51 | XMS REPORT | Encounter Summary ---
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 Acute sinusitis rapid flu (A+B) Zithromax Z-Rikki 250 mg tablet 2. Cough Bromfed DM 2 mg-30 mg-10 mg/5 mL syrup 3. Body mass index 30+ - obesity body mass index: care instructions 4. History of asthma Discussion Note: None recorded. Plan of Care Patient Instructions Take tylenol cold during the day and the prescription cough syrup at night time. Please seek care (PCP, Urgent Care, ER) [facility] symptoms get worse or do not resolve in 1 week. Reminders Provider Appointments None recorded. Lab Rapid Flu (A+B) 08/21/2018 [facility] Referral None recorded. Procedures None recorded. Surgeries None recorded. Imaging None recorded. Medications Name Start Date Asacol HD 800 mg tablet,delayed release Bromfed DM 2 mg-30 mg-10 mg/5 mL syrup Take 10 mL every 4 hours by oral route as needed. Paxil ProAir RespiClick 90 mcg/actuation breath activated INHALE TWO (2) PUFF(S) BY MOUTH EVERY 4 TO 6 HOURS NEEDED. Vascepa 1 gram capsule Wellbutrin Zithromax Z-Rikki 250 mg tablet TAKE 2 TABLETS (500 MG) BY ORAL ROUTE ONCE DAILY FOR 1 DAY THEN 1 TABLET (250 MG) BY ORAL ROUTE ONCE DAILY FOR 4 DAYS Medications Administered None recorded. Vitals Height Weight BMI Blood Pressure 5 ft 204 lbs 39.8 kg/m2 110/78 mm[Hg] Lab Results Date Name Specimen Result Interpretation Description Value Range Status Address Rapid Flu (A+B) Influenza a negative [facility]: [address] [place] [address] Influenza B negative [facility]: [address] [place] [address] Allergies Code Code System Name Reaction Severity Status Onset NKDA Problems None recorded. Procedures None recorded. Vaccine List None recorded. Social History Smoking Status Never Smoker Past Encounters 08/21/2018 Acute Sinusitis; Cough; Body Mass Index 30+ - Obesity; History of Asthma Bonnie English PA-C: [address] [place] [address], Ph. History of Present Illness Wuwii-Uhcinvznan-Mtazibs Reported By: Patient HPI: Location: head/sinuses, throat, chest. Quality: sore throat, nasal/sinus congestion, hacking cough, dry cough. Duration: 1days. Context: no foreign travel, non- smoker, sick contact. Modifying factors: OTC medication. Associated Symptoms: no sputum production, no shortness of breath, no wheezing, no change in number of pillows needed to sleep at night, no sweats, no significant weight gain, no significant weight loss, no morning cough, no vomiting, no diarrhea, no rash, no nausea, sore throat Review of Systems Basic Reported By: Patient Constitutional: Constitutional: no fever Eyes: Eyes: no eye complaints Qfnp-Uhlm-Mttjq-Throat: Ears: no ear complaints. Nose: nose/sinus problems. Mouth/Throat: no bleeding gums, no mouth complaints, no teeth problems, sore throat Cardiovascular: Cardiovascular: no chest pain, no shortness of breath, no known heart murmur Respiratory: Respiratory: no wheezing, no shortness of breath, cough Gastrointestinal: Gastrointestinal: no abdominal pain, no vomiting / diarrhea Skin: Skin: no rashes Physical Exam Adult Basic, Adult Female Complete, Adult Male Complete Reported By: Patient Constitutional: General Appearance: healthy-appearing, well-nourished, well-developed. Level of Distress: NAD. Ambulation: ambulating normally Psychiatric: Mental Status: active and alert. Orientation: to time, to place, to person Eyes: Lids and Conjunctivae: non-injected, no discharge, no pallor Adc-Snvy-Letkt-Throat: Ears: no lesions on external ear, no outer ear tenderness, EACs clear, TMs clear, TM mobility normal. Hearing: no hearing loss. Nose: no lesions on external nose, nares patent, no septal deviation, nasal passages clear, no sinus tenderness, nasal discharge--rhinorrhea, post nasal drip. Lips, Teeth, and Gums: no mouth or lip ulcers, no bleeding gums, normal dentition. Oropharynx: moist mucous membranes, no exudates, tonsils not enlarged, erythema Neck: Neck: supple. Lymph Nodes: no cervical LAD, no supraclavicular LAD Lungs: Respiratory effort: no dyspnea, no tachypnea, no use of accessory muscles, no intercostal retractions. Percussion: no dullness, flatness, or hyperresonance. Auscultation: breath sounds normal, good air movement Cardiovascular: Heart Auscultation: RRR, no murmurs. Pulses including femoral / pedal: normal throughout
--- OUTSIDE RECORDS SUMMARY | 2019-01-26 12:51 | XMS REPORT | Summary of Care ---
Author Author [facility] Organization [facility] Address Unknown Phone Unavailable Encounter [facility](FIN) [id number] Date(s): 12/08/17 - 12/08/17 [facility] [address] [place] [address]- Encounter Diagnosis Right lower quadrant abdominal swelling, mass and lump (Final) - 12/13/17 Other specified postprocedural states (Final) - Aneurysm of other specified arteries (Final) - Discharge Disposition: Home or Self Care Attending Physician: Braulio Jordan MD Vital Signs Most recent to 1 oldest [Reference Range]: Height 152.4 cm (12/08/17 3:28 PM) Weight 90.909 kg (12/08/17 3:28 PM) Body Mass Index 39.14 m2 (12/08/17 3:28 PM) Problem List Condition Effective Dates Status Health Status Informant Acute ulcerative Active colitis(Confirmed) Asthma(Confirmed) Resolved Clostridium 07/12/16 Active difficile(Confirmed) 1, 2 Dehydration(Confirme Active d) GERD Resolved (gastroesophageal reflux disease)(Confirmed) Colitis(Confirmed) Resolved Pain(Confirmed) 04/29/12 Active 1STOOL. 07/12/2016 2Problem added by Discern Expert. Allergies, Adverse Reactions, Alerts Substance Reaction Severity Status NKDA Active Medications No data available for this section Results No data available for this section Immunizations Given and Recorded Vaccine Date Status Refusal Reason pneumococcal 23-valent vaccine 07/21/16 Given Procedures Procedure Date Related Diagnosis Body Site Status section Completed Social History Social History Type Response Substance Abuse Use: None. Alcohol Current, Frequency: 1-2 times per year. Smoking Status Never smoker; Exposure to Tobacco Smoke None; Cigarette Smoking Last 365 Days No; Reg Smoking Cessation Counseling No entered on: 07/12/16 Assessment and Plan No data available for this section
--- OUTSIDE RECORDS SUMMARY | 2019-01-26 12:51 | XMS REPORT | Encounter Summary ---
Author Organization Unknown Address [address] [place] [address] Phone [phone] Reason for Visit Medical Complaint Instructions 1. [...] Flu (A+B) Influenza a negative [facility]: [address] [place] [address] Influenza B negative [facility]: [address] [place] [address] Rapid Strep Group a, Throat Result negative [facility]: [address] [place] [address] Swab Location Left and Right tonsillar pillars [facility]: [address] [place] [address] Allergies Code Code System Name Reaction Severity Status Onset NKDA Problems None recorded. Procedures None recorded. Vaccine List None recorded. Social History Smoking Status Never Smoker Past Encounters 10/16/2017 Acute Sinusitis; Body Mass Index 30+ - Obesity; Cough; History of Asthma Elizabeth Meyer NP: [address] [place] [address], Ph. History of Present Illness Eumfw-Qtgzhdccdp-Gwnokxh Reported By: Patient Review of Systems:ROS as noted in the HPI Review of Systems None recorded. Physical Exam Adult Basic Reported By: Patient Constitutional: General Appearance: obese. Level of Distress: mild distress, moderate distress. Ambulation: ambulating normally Psychiatric: Mental Status: active and alert. Orientation: to time, to place, to person Qym-Ikfh-Mwyai-Throat: Ears: no lesions on external ear, no [...]
--- OUTSIDE RECORDS SUMMARY | 2019-01-26 12:52 | XMS REPORT | Summary of Care ---
Author Author [facility] Organization [facility] Address Unknown Phone Unavailable Encounter [facility]) [id number] Date(s): 12/04/18 - 12/04/18 [facility] [address] [address] [facility], [address] [place] [address] [phone] Discharge Disposition: Home or Self Care Attending Physician: Patrick Burrows MD Vital Signs Most recent to 1 oldest [Reference Range]: Height 152.4 cm (12/04/18 4:41 PM) Blood Pressure 108/73 mmHg [90-140/60-90 mmHg] (12/04/18 4:41 PM) Peripheral Pulse 87 bpm Rate [60-100 bpm] (12/04/18 4:41 PM) Weight 94.659 kg (12/04/18 4:41 PM) Body Mass Index 40.76 m2 (12/04/18 4:41 PM) Problem List Condition Effective Dates Status Health Status Informant Acute ulcerative Active colitis(Confirmed) Asthma(Confirmed) Resolved Clostridium 07/12/16 Active difficile(Confirmed) 1, 2 Dehydration(Confirme Active d) GERD Resolved (gastroesophageal reflux disease)(Confirmed) Colitis(Confirmed) Resolved Pain(Confirmed) 04/29/12 Active 1STOOL. 07/12/2016 2Problem added by Discern Expert. Allergies, Adverse Reactions, Alerts Substance Reaction Severity Status NKDA Active Medications Asacol 0 Refill(s) Start Date: 12/04/18 Status: Ordered Paxil PO, Daily, 0 Refill(s) Start Date: 12/04/18 Status: Ordered Wellbutrin PO, 0 Refill(s) Start Date: 12/04/18 Status: Ordered Results URINE AND STOOL Most recent to 1 oldest [Reference Range]: POC UA Turbidity Clear [Clear] *NA* (12/04/18 3:10 PM) POC UA Color Yellow [Yellow] *NA* (12/04/18 3:10 PM) POC UA pH [5.0-8.0] 5.5 (12/04/18 3:10 PM) POC UA SG [<=1.030] >=1.030 *ABN* (12/04/18 3:10 PM) POC UA Glu [Negative Negative mg/dL mg/dL] *NA* (12/04/18 3:10 PM) POC UA Bld Trace [Negative] *NA* (12/04/18 3:10 PM) POC UA Ket [Negative Negative mg/dL mg/dL] *NA* (12/04/18 3:10 PM) POC UA Prot Trace mg/dL [Negative mg/dL] *ABN* (12/04/18 3:10 PM) POC UA Uro [0.1-1.0 0.2 EU/dL EU/dL] (12/04/18 3:10 PM) POC UA Bili Negative [Negative] *NA* (12/04/18 3:10 PM) POC UA LeukEst Negative [Negative] *NA* (12/04/18 3:10 PM) POC UA Nit Negative [Negative] *NA* (12/04/18 3:10 PM) Immunizations Given and Recorded Vaccine Date Status Refusal Reason pneumococcal 23-valent vaccine 07/21/16 Given Procedures Procedure Date Related Diagnosis Body Site Status section Completed Social History Social History Type Response Substance Abuse Use: None. Alcohol Current, Frequency: 1-2 times per year. Smoking Status Never smoker; Exposure to Tobacco Smoke None; Cigarette Smoking Last 365 Days No; Reg Smoking Cessation Counseling No entered on: 12/04/18 Assessment and Plan No data available for this section
--- NOTE | 2019-01-26 12:54 | NUR ---
Note kaley in EDM - 01/26/19 at 1258 by CANDE INTERMITTENT LEFT LOWER QUADRANT PAIN WITH N/V/D X 2 MONTHS. WORSE WITHIN LAST 2 WEEKS. LAST EPISODE OF VOMITING WAS 3 DAYS, RED BLOOD DIARRHEA THIS AM. HX ULCERATIVE COLITIS 20 YEARS
[2019-01-26] MEDS ORDERED: KETOROLAC TROMETHAMINE 30 MG/ML VIAL IV NR (13:00)
[2019-01-26] MEDS ORDERED: DICYCLOMINE HCL 20 MG/2 ML VIAL IM ONE (13:00)
[2019-01-26] MEDS ORDERED: DEXAMETHASONE SOD PHOS 10 MG/1 ML VIAL IV NR (13:00)
[2019-01-26] MEDS ORDERED: SODIUM CHLORIDE 0.9% 1000ML 1,000 ML IV ONE (13:00)
[2019-01-26 13:51] LABS: BASOPHILS % 0.1 % (0.0-1.0); EOSINOPHILS % 0.1 % (0.0-6.0); HEMATOCRIT 28.8 % (34.2-44.1); HEMOGLOBIN 9.1 g/dL (12.0-16.0); LYMPHOCYTES # (AUTO) 1.2 (1.0-3.2); LYMPHOCYTES % 12.7 % (18.0-39.1); MEAN CORPUSCULAR HEMOGLOBIN 30.2 pg (28-32); MEAN CORPUSCULAR HGB CONC 31.6 g/dL (31-35); MEAN CORPUSCULAR VOLUME 95.7 fL (81-99); MONOCYTES # (AUTO) 0.7 (0.2-0.8); MONOCYTES % 7.6 % (4.4-11.3); NEUTROPHILS # (AUTO) 7.3 (2.1-6.9); NEUTROPHILS % 78.6 % (38.7-80.0); PLATELET COUNT 484 x10e3/uL (140-360); RED BLOOD COUNT 3.01 x10e6/uL (3.6-5.1); RED CELL DISTRIBUTION WIDTH 14.5 % (11.7-14.4)
[2019-01-26 13:56] LABS: CLARITY,URINE SL CLOUDY (CLEAR); COLOR,URINE YELLOW (YELLOW)
[2019-01-26 13:57] LABS: BILIRUBIN,URINE NEGATIVE (NEGATIVE); KETONES,URINE TRACE (NEGATIVE); LEUKOCYTE ESTERASE ,URINE NEGATIVE (NEGATIVE); NITRITE,URINE NEGATIVE (NEGATIVE); PREGNANCY TEST, URINE NEGATIVE (NEGATIVE); PROTEIN,URINE DIPSTICK NEGATIVE (NEGATIVE); URINE UROBILINOGEN 0.2 mg/dL (0.2 - 1)
[2019-01-26 14:06] LABS: BACTERIA,URINE MANY /HPF; EPITHELIAL CELLS,URINE MODERATE /LPF; TRANSITIONAL EPI CELLS,URINE FEW
[2019-01-26 14:11] LABS: ALANINE AMINOTRANSFERASE 11 IU/L (0-55); ALBUMIN 2.8 g/dL (3.5-5.0); ALBUMIN/GLOBULIN RATIO 0.8 (0.8-2.0); ALKALINE PHOSPHATASE 80 IU/L (40-150); ANION GAP 13.1 mmol/L (8-16); BLOOD UREA NITROGEN 10 mg/dL (7-26); BUN/CREATININE RATIO 11 (6-25); CALCIUM 8.7 mg/dL (8.4-10.2); CARBON DIOXIDE 27 mmol/L (22-29); CHLORIDE 102 mmol/L (98-107); CREATININE, SERUM 0.92 mg/dL (0.57-1.11); EST GLOMERULAR FILTRATION RATE > 60 ML/MIN (60-); GLUCOSE 101 mg/dL (74-118); LIPASE 15 U/L (8-78); POTASSIUM 4.1 mmol/L (3.5-5.1); SODIUM 138 mmol/L (136-145)
[2019-01-26] MEDS ORDERED: DIATRIZOATE MEGL/DIATRIZOA SOD 30 ML BTL PO ONE (14:15)
[2019-01-26 14:29] LABS: ERYTHROCYTE SEDIMENTATION RATE 49 mm/hr (0-20)
--- NOTE | 2019-01-26 15:00 | NUR ---
PT VOMITED SOME ORAL CONTRAST. DR. DILLON MADE AWARE OF THIS, ORDERS RECEIVED TO MEDICATE, SEE eMAR.
[2019-01-26] MEDS ORDERED: ONDANSETRON HCL INJ 2MG/ML 2ML 2 MG/ML VIAL IV ONE (15:15)
[2019-01-26] MEDS ORDERED: HYOSCYAMINE SULFATE 0.5 MG/ML INJ IV PRN (16:30)
[2019-01-26] MEDS ORDERED: BISACODYL 5 MG TAB EC PO ONE (16:45)
--- NOTE | 2019-01-26 16:48 | Diagnostic Imaging Report ---
EXAM: CT Abdomen and Pelvis WITH contrast INDICATION: Diffuse abdominal pain, query ulcerative colitis. COMPARISON: None. TECHNIQUE: Abdomen and pelvis were scanned utilizing a multidetector helical scanner from the lung base to the pubic symphysis after administration of IV contrast. Coronal and sagittal reformations were obtained. Routine protocol was performed. Scan was performed when during portal venous phase. IV CONTRAST: 100 cc of Isovue-370. ORAL CONTRAST: Gastrografin COMPLICATIONS: None RADIATION DOSE: Total DLP: 807.5 mGy*cm Dose modulation, iterative reconstruction, and/or weight based adjustment of the mA/kV was utilized to reduce the radiation dose to as low as reasonably achievable. FINDINGS: LINES and TUBES: None. LOWER THORAX: Minimal dependent atelectasis. HEPATOBILIARY: No evidence of focal lesion. No biliary ductal dilation. GALLBLADDER: Decompressed. No radio-opaque stones or sludge. No wall thickening. There is air within the common bile duct. SPLEEN: No splenomegaly. PANCREAS: No focal masses or ductal dilatation. ADRENALS: No adrenal nodules KIDNEYS/URETERS: Kidneys enhance symmetrically. No evidence of hydronephrosis, solid mass, or stone. GI TRACT: No evidence of bowel obstruction. The appendix is normal. There is possible mild wall thickening within the splenic flexure as well as descending and sigmoid colon although evaluation is somewhat limited due to partial decompression and lack of enteric contrast in this area. PELVIC ORGANS/BLADDER: Decompressed bladder. The uterus is present. LYMPH NODES: No lymphadenopathy. VESSELS: Unremarkable. PERITONEUM / RETROPERITONEUM: No free air or fluid. BONES AND SOFT TISSUES: Unremarkable. CONCLUSION: Possible mild wall thickening within the splenic flexure as well as descending and sigmoid colon. This could reflect mild colitis, which may be infectious or inflammatory. Suggest clinical correlation. Nonspecific air within the common bile duct, which may reflect prior instrumentation or incompetent Sphincter of Oddi, among other etiologies such as rarely infection. Signed by: Dr. Nav Jack MD on 01/26/2019 4:45 PM
[2019-01-26] MEDS ORDERED: ACETAMINOPHEN 1000 MG/100 ML IV ONE (17:00)
[2019-01-26] MEDS ORDERED: HYDROCORTISONE 100 MG/60 ML ENEMA RC ONE (17:00)
[2019-01-26] MEDS: SODIUM CHLORIDE 0.9% 1000ML 1,000 ML IV SCH (17:15)
[2019-01-26] MEDS: FAMOTIDINE 20 MG/2 ML VIAL IV SCH (17:16)
[2019-01-26] MEDS: METHYLPREDNISOLONE SOD SUCC 40 MG/ML VIAL 1ML IV SCH ×2 (17:18→23:35)
--- OUTSIDE RECORDS SUMMARY | 2019-01-26 17:48 | XMS REPORT | Clinical Summary ---
Author Author [facility] Address Unknown Phone Unavailable Care Team Providers Care Corner Block Cutter Name Role Phone Asked, No Pcp PCP [...] more information, ai e contact: Robert Elaine [address] [place] [address]
--- OUTSIDE RECORDS SUMMARY | 2019-01-26 17:49 | XMS REPORT ---
Author Author [facility] Address Unknown Phone Unavailable Care Team Providers Care Liquefaction And Regasification Helper Name Role Phone Geovanna DILLON Unavailable Unavailable Problems This patient has no known problems. Allergies, Adverse Reactions, Alerts This patient has no known allergies or adverse reactions. Medications This patient has no known medications. Results Test Description Test Time Test Comments Text Results Atomic Results Result Comments CT ABDOMEN/PELVIS W 2019-01-26 16:33:00 [place] [address] Patient Name: ROCAEL HOLT MR #: [id number] : 1975 Age/Sex: 43/F Req #: [id number] Adm Physician: Ordered by: LOIDA DILLON MD Report #: [id number] Location: ER Room/Bed: Procedure: [id number] CT/CT ABDOMEN/PELVIS W Exam Date: 01/26/19 Exam Time: 1500 REPORT STATUS: Signed EXAM: CT Abdomen and Pelvis WITH contrast INDICATION: Diffuse abdominal pain, query ulcerative colitis. COMPARISON: None. TECHNIQUE: Abdomen and pelvis were scanned utilizing a multidetector helical scanner from the lung base to the pubic symphysis after administration of IV contrast. Coronal and sagittal reformations were obtained. Routine protocol was performed. Scan was performed when during portal venous phase. IV CONTRAST: 100 cc of Isovue-370. ORAL CONTRAST: Gastrografin COMPLICATIONS: None RADIATION DOSE: Total DLP: 807.5 mGy*cm Dose modulation, iterative reconstruction, and/or weight based adjustment of the mA/kV was utilized to reduce the radiation dose to as low as reasonably achievable. FINDINGS: LINES and TUBES: None. LOWER THORAX: Minimal dependent atelectasis. HEPATOBILIARY: No evidence of focal lesion. No biliary ductal dilation. GALLBLADDER: Decompressed. No radio- opaque stones or sludge. No wall thickening. There is air within the common bile duct. SPLEEN: No splenomegaly. PANCREAS: No focal masses or ductal dilatation. ADRENALS: No adrenal nodules KIDNEYS/URETERS: Kidneys enhance symmetrically. No evidence of hydronephrosis, solid mass, or stone. GI TRACT: No evidence of bowel obstruction. The appendix is normal. There is possible mild wall thickening within the splenic flexure as well as descending and sigmoid colon although evaluation is somewhat limited due to partial decompression and lack of enteric contrast in this area. PELVIC ORGANS/BLADDER: Decompressed bladder. The uterus is present. LYMPH NODES: No lymphadenopathy. VESSELS: Unremarkable. PERITONEUM / RETROPERITONEUM: No free air or fluid. BONES AND SOFT TISSUES: Unremarkable. CONCLUSION: Possible mild wall thickening within the splenic flexure as well as descending and sigmoid colon. This could reflect mild colitis, which may be infectious or inflammatory. Suggest clinical correlation. Nonspecific air within the common bile duct, which may reflect prior instrumentation or incompetent Sphincter of Oddi, among other etiologies such as rarely infection. Signed by: Dr. Era Madrigal MD on 01/26/2019 4:45 PM Dictated By: ERA MADRIGAL MD 43 Transcribed By: HECTOR on 01/26/191644 COPY TO: LOIDA DILLON MD
--- NOTE | 2019-01-26 18:14 | NUR ---
Received patient via stretcher. Accompanied by . [email or web address] to time, person, place, situation. Respirations even and unlabored. Soft cast, wrapped by MAXIM bandage to Right foot. Oriented patient to room. Instructed to use call light for assistance. Voiced understanding.
[2019-01-26 18:32] VITALS: BP 101/66
--- NOTE | 2019-01-26 19:05 | NUR ---
Report given to oncoming nurse of patient's status. Admission to be completed by oncoming nurse.
--- NOTE | 2019-01-26 19:05 | NUR ---
Patient visited in room during nursing rounds. Patient alert and oriented x3. On IVF. at bedside visiting. Patient with sonali bandage wrapped on right foot. Pt stated she fell and not sure if right foot has broken bones. Patient ambulatory with standby assist. Call thakur within reach.
[2019-01-26] MEDS ORDERED: KETOROLAC TROMETHAMINE 30 MG/ML VIAL IM PRN (19:15)
[2019-01-26 20:00] VITALS: BP 94/56
[2019-01-26] MEDS ORDERED: MESALAMINE 400 MG CAP PO SCH (21:00)
[2019-01-26] MEDS ORDERED: IOPAMIDOL 370 MG/ML 200 ML INFUS..BTL INJ ONE (22:10)
[2019-01-26] MEDS ORDERED: SODIUM CHLORIDE 0.9% 50ML 50 ML ONE (22:10)
[2019-01-26 23:40] VITALS: BP 94/56
[2019-01-26] MEDS: ACETAMINOPHEN 1000 MG/100 ML IV SCH (23:40)
[2019-01-27] VITALS: BP 98/67
--- NOTE | 2019-01-27 00:40 | NUR ---
Dr. Jair Marcum came and saw pt in room. MD aware of pt condition. MD stated to keep pt on Clear Liquid diet at this time.
[2019-01-27] MEDS ORDERED: VITAMIN D400 UNIT PO (00:58)
[2019-01-27] MEDS ORDERED: PROBIOTIC & AC1 EACH PO (00:58)
[2019-01-27] MEDS ORDERED: PREDNISONE20 MG PO (00:58)
[2019-01-27] MEDS ORDERED: VITAMIN B-121000 MCG PO (00:58)
[2019-01-27] MEDS ORDERED: VSL#3 CAPSULE1 EACH PO (00:58)
[2019-01-27] MEDS: SODIUM CHLORIDE 0.9% 1000ML 1,000 ML IV SCH ×4 (02:00→22:28)
[2019-01-27 04:00] VITALS: BP 94/50
[2019-01-27 05:21] LABS: HEMATOCRIT 26.2 % (34.2-44.1); HEMOGLOBIN 8.1 g/dL (12.0-16.0); LYMPHOCYTES # (AUTO) 1.1 (1.0-3.2); LYMPHOCYTES % 14.7 % (18.0-39.1); MEAN CORPUSCULAR HGB CONC 30.9 g/dL (31-35); MONOCYTES # (AUTO) 0.3 (0.2-0.8); MONOCYTES % 3.6 % (4.4-11.3); NEUTROPHILS # (AUTO) 6.1 (2.1-6.9); NEUTROPHILS % 80.9 % (38.7-80.0); PLATELET COUNT 439 x10e3/uL (140-360); RED CELL DISTRIBUTION WIDTH 14.5 % (11.7-14.4)
[2019-01-27 05:55] LABS: ALANINE AMINOTRANSFERASE 9 IU/L (0-55); ALBUMIN 2.5 g/dL (3.5-5.0); ALBUMIN/GLOBULIN RATIO 0.8 (0.8-2.0); ALKALINE PHOSPHATASE 66 IU/L (40-150); ANION GAP 10.8 mmol/L (8-16); BLOOD UREA NITROGEN 9 mg/dL (7-26); BUN/CREATININE RATIO 14 (6-25); CARBON DIOXIDE 22 mmol/L (22-29); CHLORIDE 109 mmol/L (98-107); CREATININE, SERUM 0.65 mg/dL (0.57-1.11); EST GLOMERULAR FILTRATION RATE > 60 ML/MIN (60-); GLUCOSE 150 mg/dL (74-118); POTASSIUM 3.8 mmol/L (3.5-5.1); SODIUM 138 mmol/L (136-145)
[2019-01-27] MEDS: METHYLPREDNISOLONE SOD SUCC 40 MG/ML VIAL 1ML IV SCH ×4 (06:08→23:55)
[2019-01-27] MEDS: ACETAMINOPHEN 1000 MG/100 ML IV SCH ×4 (06:08→23:55)
[2019-01-27 06:11] LABS: FERRITIN 20.29 ng/mL (4.63-204.00)
--- NOTE | 2019-01-27 07:40 | NUR ---
pt awake up on rounds, sitting upright in bed, pt alert resp even and unlabored, pt able to make needs known, no c/o pain when asked, no distress noted, call light in reach.
[2019-01-27 08:16] VITALS: BP 109/71
[2019-01-27] MEDS: DICYCLOMINE HCL 10 MG CAP PO SCH ×3 (09:00→20:35)
[2019-01-27] MEDS: MESALAMINE 400 MG CAP PO SCH ×3 (09:00→20:35)
[2019-01-27] MEDS ORDERED: DOCUSATE SODIUM 100 MG CAP PO SCH (09:00)
[2019-01-27] MEDS: FAMOTIDINE 20 MG/2 ML VIAL IV SCH ×2 (09:00→17:04)
[2019-01-27 11:49] VITALS: BP 111/66
[2019-01-27 15:00] LABS: C DIFFICILE TOXIN A&B AMP PROB NEGATIVE (NEGATIVE); WBC,FECAL (FECAL LACTOFERRIN) NEGATIVE (NEGATIVE)
[2019-01-27 16:22] VITALS: BP 113/56
[2019-01-27] MEDS: MORPHINE SULFATE INJ 4 MG/ML INJ 1ML IV PRN ×2 (18:14→22:28)
[2019-01-27] MEDS: ONDANSETRON HCL INJ 2MG/ML 2ML 2 MG/ML VIAL IV PRN (18:14)
--- NOTE | 2019-01-27 19:20 | NUR ---
Patient visited in room during nursing rounds. Patient alert and oriented x3. On IVF. at bedside visiting. Patient with sonali bandage wrapped on right foot. Pt experiencing intermittent abdominal pain. Pt on IVF and prn pain med. Patient ambulatory with standby assist. Call thakur within reach.
--- NOTE | 2019-01-27 19:50 | NUR ---
report given to oncoming nurse, for continued care.
[2019-01-27 20:00] VITALS: BP 114/56
[2019-01-27] MEDS ORDERED: HYDRALAZINE HCL 20 MG/ML VIAL IV PRN (20:30)
[2019-01-27] MEDS ORDERED: NYSTATIN500000 UNI PO (20:56)
[2019-01-27] MEDS ORDERED: PENTASA500 MG PO (20:56)
[2019-01-27] MEDS ORDERED: ENTERAGAM PO (20:56)
[2019-01-27] MEDS ORDERED: CYCLOBENZAPRINE10 MG PO (20:56)
[2019-01-27] MEDS ORDERED: PROAIR HFA INH8.5 GM INH (20:56)
[2019-01-27] MEDS ORDERED: FAMOTIDINE20 MG PO (20:56)
[2019-01-27] MEDS ORDERED: IRON18 MG PO (20:56)
[2019-01-28] VITALS (7 sets, daily range): BP systolic 109–138; BP diastolic 70–85
--- NOTE | 2019-01-28 | NUR ---
Dr. Jair Marcum came and saw pt in room. MD aware of pt condition. MD explained to patient Mesalamine dose was increased and that he suggest patient to keep that dose.
[2019-01-28] MEDS: MORPHINE SULFATE INJ 4 MG/ML INJ 1ML IV PRN ×5 (02:37→19:53)
[2019-01-28 05:35] LABS: HEMATOCRIT 26.2 % (34.2-44.1); LYMPHOCYTES % 12.1 % (18.0-39.1); MEAN CORPUSCULAR HEMOGLOBIN 30.8 pg (28-32); MEAN CORPUSCULAR HGB CONC 30.5 g/dL (31-35); MONOCYTES # (AUTO) 0.5 (0.2-0.8); MONOCYTES % 5.8 % (4.4-11.3); NEUTROPHILS # (AUTO) 6.7 (2.1-6.9); NEUTROPHILS % 80.9 % (38.7-80.0); PLATELET COUNT 394 x10e3/uL (140-360)
[2019-01-28 05:36] LABS: MEAN CORPUSCULAR VOLUME 100.8 fL (81-99)
[2019-01-28 06:00] LABS: ANION GAP 9.9 mmol/L (8-16); BLOOD UREA NITROGEN 7 mg/dL (7-26); BUN/CREATININE RATIO 11 (6-25); CARBON DIOXIDE 21 mmol/L (22-29); CHLORIDE 110 mmol/L (98-107); CREATININE, SERUM 0.66 mg/dL (0.57-1.11); EST GLOMERULAR FILTRATION RATE > 60 ML/MIN (60-); GLUCOSE 129 mg/dL (74-118); POTASSIUM 3.9 mmol/L (3.5-5.1); SODIUM 137 mmol/L (136-145)
[2019-01-28] MEDS: SODIUM CHLORIDE 0.9% 1000ML 1,000 ML IV SCH ×3 (06:30→23:16)
[2019-01-28] MEDS: METHYLPREDNISOLONE SOD SUCC 40 MG/ML VIAL 1ML IV SCH ×4 (06:30→23:16)
[2019-01-28] MEDS: FAMOTIDINE 20 MG/2 ML VIAL IV SCH ×2 (08:25→17:22)
[2019-01-28] MEDS: MESALAMINE 400 MG CAP PO SCH ×3 (08:25→19:53)
[2019-01-28] MEDS: DICYCLOMINE HCL 10 MG CAP PO SCH ×3 (08:25→19:53)
[2019-01-28] MEDS: IRON SUCROSE 100 MG in SODIUM CHLORIDE 0.9% 100 ML 100 ML IV SCH (10:00)
[2019-01-28] MEDS: ONDANSETRON HCL INJ 2MG/ML 2ML 2 MG/ML VIAL IV PRN ×2 (10:41→14:08)
[2019-01-28] MEDS: CYCLOBENZAPRINE HCL 10 MG TAB PO PRN (19:54)
[2019-01-29] VITALS (8 sets, daily range): BP systolic 114–137; BP diastolic 58–80
--- NOTE | 2019-01-29 00:15 | NUR ---
DR. Edin CORTES AT BEDSIDE WITH PATIENT. PATIENT STATED SHE ISN'T PASSING GAS AND HAS NOT HAD A BOWEL MOVEMENT SINCE 01/27/2019. DR. CORTES INSTRUCTED THE PATIENT TO SLOW DOWN ON THE PAIN MEDICATION SINCE THE MORPHINE IS CAUSING THE CONSTIPATION. PATIENT VERBALIZED UNDERSTANDING.
[2019-01-29] MEDS: MORPHINE SULFATE INJ 4 MG/ML INJ 1ML IV PRN ×2 (04:55→23:01)
[2019-01-29] MEDS: METHYLPREDNISOLONE SOD SUCC 40 MG/ML VIAL 1ML IV SCH ×4 (06:04→23:31)
[2019-01-29] MEDS: CYCLOBENZAPRINE HCL 10 MG TAB PO PRN ×3 (06:05→20:05)
[2019-01-29 06:15] LABS: BASOPHILS % 0.1 % (0.0-1.0); HEMATOCRIT 25.9 % (34.2-44.1); HEMOGLOBIN 7.8 g/dL (12.0-16.0); LYMPHOCYTES # (AUTO) 1.1 (1.0-3.2); LYMPHOCYTES % 15.7 % (18.0-39.1); MEAN CORPUSCULAR HEMOGLOBIN 30.4 pg (28-32); MEAN CORPUSCULAR HGB CONC 30.1 g/dL (31-35); MEAN CORPUSCULAR VOLUME 100.8 fL (81-99); MONOCYTES # (AUTO) 0.6 (0.2-0.8); MONOCYTES % 8.2 % (4.4-11.3); NEUTROPHILS # (AUTO) 5.1 (2.1-6.9); NEUTROPHILS % 74.3 % (38.7-80.0); PLATELET COUNT 436 x10e3/uL (140-360); RED BLOOD COUNT 2.57 x10e6/uL (3.6-5.1); RED CELL DISTRIBUTION WIDTH 15.3 % (11.7-14.4)
[2019-01-29 06:32] LABS: ANION GAP 10.9 mmol/L (8-16); BLOOD UREA NITROGEN 5 mg/dL (7-26); BUN/CREATININE RATIO 7 (6-25); CALCIUM 8.1 mg/dL (8.4-10.2); CARBON DIOXIDE 24 mmol/L (22-29); CHLORIDE 108 mmol/L (98-107); CREATININE, SERUM 0.67 mg/dL (0.57-1.11); EST GLOMERULAR FILTRATION RATE > 60 ML/MIN (60-); GLUCOSE 123 mg/dL (74-118); POTASSIUM 3.9 mmol/L (3.5-5.1); SODIUM 139 mmol/L (136-145)
[2019-01-29] MEDS: SODIUM CHLORIDE 0.9% 1000ML 1,000 ML IV SCH ×2 (06:43→17:55)
--- NOTE | 2019-01-29 06:58 | Diagnostic Imaging Report ---
EXAM: Abdomen 2 Views INDICATION: ^ABD PAIN/DISTENSION COMPARISON: CT abdomen pelvis 01/26/2019. FINDINGS: Positive oral contrast in the right colon with mixed stool. Air-filled mid transverse colon and descending colon. These loops demonstrates relative paucity of normal haustral marking. No dilated loops of small bowel. No renal calculi. No abnormal soft tissue masses. Mild degenerative changes in the lumbar spine and pelvis. IMPRESSION: 1. Slow bowel transit with oral contrast mixes stool in the right colon. 2. No stool seen in the mid transverse colon extending to the rectum. Relative paucity of normal haustral marking. When comparing to recent CT, this suggests possible underlying subacute colitis, such as ulcerative colitis. Signed by: Dr. Mark Corley M.D. on 01/29/2019 6:54 AM
--- NOTE | 2019-01-29 07:20 | NUR ---
PT RESTING IN BED AA0X3. PT IS ON A FULL LIQUID DIET, STATES HAVING A LARGE BM THIS AM LARGE AND LIQUID. PT STATES HER PAIN LEVEL IS AT 3/10 TO HER LEFT ABD. PT STATES HER PAIN IS TOLERABLE AT THIS TIME PT IS ON IV FLUIDS TO HER LEFT AC AT 125 CC/HR WILL CONTINUE TO MONITOR PT AT THIS TIME, SIDE RAILSX2 ,BED WHEELS LOCKED ,CALL LIGHT IS WITHIN EASY REACH, INSTRUCTED TO CALL FOR ASSISTANCE IF NEEDED
[2019-01-29] MEDS: MESALAMINE 400 MG CAP PO SCH ×3 (09:45→20:05)
[2019-01-29] MEDS: DICYCLOMINE HCL 10 MG CAP PO SCH ×3 (09:45→20:05)
[2019-01-29] MEDS: FAMOTIDINE 20 MG/2 ML VIAL IV SCH (09:45)
[2019-01-29] MEDS: IRON SUCROSE 100 MG in SODIUM CHLORIDE 0.9% 100 ML 100 ML IV SCH (10:58)
[2019-01-29] MEDS ORDERED: DICYCLOMINE HCL 10 MG CAP PO PRN (12:30)
[2019-01-29] MEDS ORDERED: ONDANSETRON HCL 4 MG ORAL DISINTEGRATING TAB PO PRN (14:15)
[2019-01-29] MEDS: FAMOTIDINE 20 MG TAB PO SCH (17:56)
--- NOTE | 2019-01-30 01:12 | NUR ---
SPOKE TO DR. Lupe CORTES AT THIS TIME. ORDERED TO DC IV FLUIDS
[2019-01-30 04:00] VITALS: BP 139/82
[2019-01-30] MEDS: METHYLPREDNISOLONE SOD SUCC 40 MG/ML VIAL 1ML IV SCH ×2 (06:00→12:27)
--- NOTE | 2019-01-30 07:36 | NUR ---
Rcvd patient in report this am. Patient is asleep in bed at this time. No s/s of distress noted
[2019-01-30 07:37] LABS: HEMATOCRIT 26.4 % (34.2-44.1); LYMPHOCYTES # (AUTO) 1.2 (1.0-3.2); LYMPHOCYTES % 18.1 % (18.0-39.1); MEAN CORPUSCULAR HEMOGLOBIN 30.1 pg (28-32); MEAN CORPUSCULAR HGB CONC 30.3 g/dL (31-35); MEAN CORPUSCULAR VOLUME 99.2 fL (81-99); MONOCYTES # (AUTO) 0.8 (0.2-0.8); MONOCYTES % 11.8 % (4.4-11.3); NEUTROPHILS # (AUTO) 4.4 (2.1-6.9); NEUTROPHILS % 69.2 % (38.7-80.0); PLATELET COUNT 384 x10e3/uL (140-360); RED BLOOD COUNT 2.66 x10e6/uL (3.6-5.1); RED CELL DISTRIBUTION WIDTH 15.3 % (11.7-14.4)
[2019-01-30 08:00] VITALS: BP 135/72
[2019-01-30 08:01] LABS: ANION GAP 10.6 mmol/L (8-16); BLOOD UREA NITROGEN 5 mg/dL (7-26); BUN/CREATININE RATIO 7 (6-25); CALCIUM 8.3 mg/dL (8.4-10.2); CARBON DIOXIDE 28 mmol/L (22-29); CHLORIDE 104 mmol/L (98-107); CREATININE, SERUM 0.67 mg/dL (0.57-1.11); EST GLOMERULAR FILTRATION RATE > 60 ML/MIN (60-); GLUCOSE 118 mg/dL (74-118); MAGNESIUM 1.9 MG/DL (1.3-2.1); PHOSPHORUS 3.2 MG/DL (2.3-4.7); POTASSIUM 3.6 mmol/L (3.5-5.1); SODIUM 139 mmol/L (136-145)
[2019-01-30] MEDS: MESALAMINE 400 MG CAP PO SCH ×3 (08:37→21:25)
[2019-01-30] MEDS: IRON SUCROSE 100 MG in SODIUM CHLORIDE 0.9% 100 ML 100 ML IV SCH (08:37)
[2019-01-30] MEDS: ASCORBIC ACID 500 MG TAB PO SCH ×2 (08:37→17:06)
[2019-01-30] MEDS: FAMOTIDINE 20 MG TAB PO SCH ×2 (08:37→17:06)
[2019-01-30] MEDS: DICYCLOMINE HCL 10 MG CAP PO SCH ×3 (08:37→21:25)
[2019-01-30 13:56] VITALS: BP 135/72
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
[2019-01-30 16:10] VITALS: BP 128/71
[2019-01-30] MEDS: CYCLOBENZAPRINE HCL 10 MG TAB PO PRN (19:10)
[2019-01-30 20:14] VITALS: BP 118/58
[2019-01-30] MEDS ORDERED: METHYLPREDNISOLONE SOD SUCC 40 MG/ML VIAL 1ML IV SCH (21:00)
[2019-01-30] MEDS: MORPHINE SULFATE INJ 4 MG/ML INJ 1ML IV PRN (23:33)
[2019-01-31] VITALS (7 sets, daily range): BP systolic 117–139; BP diastolic 61–80
[2019-01-31] MEDS: CYCLOBENZAPRINE HCL 10 MG TAB PO PRN ×3 (04:36→19:59)
[2019-01-31 06:25] LABS: HEMATOCRIT 27.8 % (34.2-44.1); HEMOGLOBIN 8.5 g/dL (12.0-16.0); LYMPHOCYTES % 18.6 % (18.0-39.1); MEAN CORPUSCULAR HEMOGLOBIN 30.9 pg (28-32); MEAN CORPUSCULAR HGB CONC 30.6 g/dL (31-35); MEAN CORPUSCULAR VOLUME 101.1 fL (81-99); MONOCYTES # (AUTO) 0.8 (0.2-0.8); MONOCYTES % 15.3 % (4.4-11.3); NEUTROPHILS # (AUTO) 3.3 (2.1-6.9); NEUTROPHILS % 64.2 % (38.7-80.0); PLATELET COUNT 355 x10e3/uL (140-360); RED BLOOD COUNT 2.75 x10e6/uL (3.6-5.1); RED CELL DISTRIBUTION WIDTH 15.3 % (11.7-14.4)
[2019-01-31] MEDS: PREDNISONE 20 MG TAB PO SCH (09:05)
[2019-01-31] MEDS: DICYCLOMINE HCL 10 MG CAP PO SCH ×3 (09:05→19:59)
[2019-01-31] MEDS: IRON SUCROSE 100 MG in SODIUM CHLORIDE 0.9% 100 ML 100 ML IV SCH (09:05)
[2019-01-31] MEDS: ASCORBIC ACID 500 MG TAB PO SCH ×2 (09:05→16:31)
[2019-01-31] MEDS: FAMOTIDINE 20 MG TAB PO SCH ×2 (09:05→16:31)
[2019-01-31] MEDS: MESALAMINE 400 MG CAP PO SCH ×3 (09:05→19:59)
--- NOTE | 2019-01-31 13:10 | NUR ---
CASE MANAGEMENT ASSESSMENT Barista to bedside to discuss plan of care with patient/family. CM/SW role and care transitions discussed. Anticipated discharge plan discussed along with duration of care. CM/SW discussed patients right to make decisions in care. CM/SW work hours given. Patient lives: with her and kids Admit/Transfer: thru ED Hospital/ER visits since last admit: 0 POA/Emergency contact: Ugo Leung [phone] Current/Previous Home Health: none PCP/Follow-up Care: Dr. Leila Verde - PCP; CM advised pt to follow up with one of her MDs within 5 days of discharge. Pt verbalized understanding Current/Previous DME: walking boot Medications (referring to index hospitalization or the first time you were in the hospital) a. Were changes made in your medications when you were in the hospital on [date of index hospitalization]? n/a b. Did you understand the changes? n/a c. Were you able to obtain your new medications right away? n/a d. Were you able to take your medications like the doctor wanted you to? n/a e. Did the hospital give you an accurate, easy to understand list of medications when you left? n/a Scale of 1-10 how comfortable does patient feel with disease management in outpatient settin Other Services: none Employment Status: employed [employer] Areas of Concerns: still with bleeding in stool; ulcerative colitis Referral Needs: none Education Needs: medical management IMM/TAMEZ given and signed (if applicable): n/a Goal for discharge: home CM/SW left business card at the bedside with contact information. Name and number was also written on the patients whiteboard. Patient verbalized understanding of discussion. CM will follow-up with ongoing discharge and transition of care needs.
[2019-02-01] VITALS: BP 124/76
[2019-02-01] MEDS: MORPHINE SULFATE INJ 4 MG/ML INJ 1ML IV PRN (02:38)
[2019-02-01 04:00] VITALS: BP 132/79
[2019-02-01] MEDS: CYCLOBENZAPRINE HCL 10 MG TAB PO PRN (04:13)
[2019-02-01] MEDS ORDERED: DICYCLOMINE HCL10 MG PO (07:11)
[2019-02-01] MEDS ORDERED: Mesalamine PO (07:11)
[2019-02-01] MEDS ORDERED: PREDNISONE20 MG PO (07:11)
--- NOTE | 2019-02-01 07:18 | NUR ---
PT ASLEEP UPON ROUNDS AND EASILY AROUSED AT THIS TIME , NO DISTRESS NOTED, PT ABLE TO MAKE NEEDS KNOWN, WILL CONT TO MONITOR.
--- NOTE | 2019-02-01 07:40 | NUR ---
SAMUEL WITH DR. [facility], HERE TO SEE PT.
[2019-02-01 08:36] VITALS: BP 114/55
[2019-02-01] MEDS: MESALAMINE 400 MG CAP PO SCH (08:40)
[2019-02-01] MEDS: DICYCLOMINE HCL 10 MG CAP PO SCH (08:40)
[2019-02-01] MEDS: PREDNISONE 20 MG TAB PO SCH (08:40)
[2019-02-01] MEDS: ASCORBIC ACID 500 MG TAB PO SCH (08:40)
[2019-02-01] MEDS: FAMOTIDINE 20 MG TAB PO SCH (08:40)
--- NOTE | 2019-02-01 10:03 | NUR ---
pt discharged home with prescriptions.,pt was educated on her medications, pt verbalize understanding, iv site remove no swelling no redness to site.
--- NOTE | 2019-02-02 04:54 | Discharge Summary ---
ADMISSION DIAGNOSES: Ulcerative colitis flare up, abdominal pain, and anemia. DISCHARGE DIAGNOSES: Ulcerative colitis flare up, abdominal pain, and anemia. Rule out Clostridium difficile. HISTORY: The patient has a history of ulcerative colitis and asthma. SURGICAL HISTORY: D and C, x2, and tonsillectomy. FAMILY HISTORY: Noncontributory. SOCIAL HISTORY: Noncontributory. HOSPITAL COURSE: A 43-year-old female with past medical history of ulcerative colitis and asthma, presents with 2 months history of bloody diarrhea, abdominal pain, and nausea and vomiting. She was seen by GI and they sent her to the ER. On admission, the patient was started on Solu-Medrol q.6. GI was consulted. CT of the abdomen showed possible mild wall thickening within the splenic flexure as well as descending and sigmoid colon. This could reflect mild colitis, which may be infectious or inflammatory. X-ray of the abdomen showed slow bowel transit with oral contrast mixed with stool in the right colon. No stool seen in the mild transverse colon extending to the rectum. Stool calprotectin was elevated. Stool lactoferrin was negative. Stool for Clostridium difficile negative. Stool culture for E coli negative. Salmonella and Shigella still pending. Per GI recommendation, patient can discharge home with prednisone 40 daily, mesalamine 1600 mg t.i.d., and Bentyl. She will follow up with primary care in 1-2 weeks and GI next week. Vital signs stable, patient afebrile. The patient understands discharge instructions and agrees to plan. Dictated by Cass Boyce NP MD BOSSMAN Shahid/MODL /[id number]
== END 2019-02-01 09:45 | disposition home or self-care (01) | DRG 386 ==
LOC: ER 12:47 → ERHOLD 16:29 → MED/SURG2 18:19 → MED/SURG 01-28 14:41
PROVIDERS: ADMIT Internal Medicine; ATTEND Internal Medicine
DX: K51.818 Other ulcerative colitis with other complication (principal); Z68.42 Body mass index [BMI] 45.0-49.9, adult; D50.0 Iron deficiency anemia secondary to blood loss (chronic); E66.01 Morbid (severe) obesity due to excess calories; F32.9 Major depressive disorder, single episode, unspecified; J45.909 Unspecified asthma, uncomplicated
CPT/HCPCS: 36415; 74019; 74177; 80048; 80053; 81001; 81025; 82607; 82728; 82746; 83540; 83630; 83690; 83735; 83993; 84100; 84466; 85025; 85045; 85651; 86140; 87045; 87177; 87493; 96372; 96374; 96375; 99284; J0500; J1100; J1756; J1885; J1980; J2270; J2405; J2920; J7030; J7512; Q9967

== ENCOUNTER 2022-06-18 21:49 | Observation (INO) | payer SELFPAY ==
[~2022-06-18] VITALS: Ht 180.3 cm; Wt 104.3 kg
[~2022-06-18 21:49] MED LIST: CYCLOBENZAPRINE10 MG PO; DICYCLOMINE HCL10 MG PO; ENTERAGAM PO; FAMOTIDINE20 MG PO; IRON18 MG PO; Mesalamine PO; NYSTATIN500000 UNI PO; PENTASA500 MG PO; PREDNISONE20 MG PO; PROAIR HFA INH8.5 GM INH; PROBIOTIC & AC1 EACH PO; VITAMIN B-121000 MCG PO; VITAMIN D400 UNIT PO; VSL#3 CAPSULE1 EACH PO
[2022-06-18] MEDS ORDERED: KETOROLAC TROMETHAMINE 30 MG/ML VIAL IV STA (21:58)
[2022-06-18] MEDS ORDERED: DIAZEPAM INJ 5 MG/ML 2 ML IV STA (22:03)
[2022-06-18 22:19] LABS: BASOPHILS # (AUTO) 0.1 (0.0-0.1); BASOPHILS % 0.7 % (0.0-1.0); EOSINOPHILS # (AUTO) 0.7 (0.0-0.4); EOSINOPHILS % 8.7 % (0.0-6.0); HEMATOCRIT 35.9 % (34.2-44.1); HEMOGLOBIN 10.9 g/dL (12.0-16.0); LYMPHOCYTES # (AUTO) 3.6 (1.0-3.2); LYMPHOCYTES % 47.9 % (18.0-39.1); MEAN CORPUSCULAR HEMOGLOBIN 25.5 pg (28-32); MEAN CORPUSCULAR HGB CONC 30.4 g/dL (31-35); MEAN CORPUSCULAR VOLUME 83.9 fL (81-99); MONOCYTES # (AUTO) 0.6 (0.2-0.8); MONOCYTES % 7.5 % (4.4-11.3); NEUTROPHILS # (AUTO) 2.6 (2.1-6.9); NEUTROPHILS % 35.1 % (38.7-80.0); PLATELET COUNT 311 x10e3/uL (140-360); RED BLOOD COUNT 4.28 x10e6/uL (3.6-5.1); RED CELL DISTRIBUTION WIDTH 16.7 % (11.7-14.4)
[2022-06-18 22:40] LABS: ALBUMIN/GLOBULIN RATIO 1.1 (0.8-2.0); ANION GAP 15.6 mmol/L (8-16); CALCIUM 9.3 mg/dL (8.4-10.2); CREATININE, SERUM 0.87 mg/dL (0.57-1.11); POTASSIUM 3.6 mmol/L (3.5-5.1)
[2022-06-18 22:47] LABS: CREATINE KINASE MB 0.5 ng/mL (0-5.0)
[2022-06-18 23:08] LABS: AMPHETAMINES SCREEN,URINE NEGATIVE (NEGATIVE); BENZODIAZEPINES SCREEN,URINE NEGATIVE (NEGATIVE); PHENCYCLIDINE SCREEN,URINE NEGATIVE (NEGATIVE)
[2022-06-18] MEDS ORDERED: ONDANSETRON HCL INJ 2MG/ML 2ML 2 MG/ML VIAL IV STA (23:14)
[2022-06-18] MEDS ORDERED: Morphine 4mg INJECTION 4 MG/ML INJ IV ONE (23:15)
[2022-06-18] MEDS ORDERED: ONDANSETRON HCL INJ 2MG/ML 2ML 2 MG/ML VIAL ONE (23:18)
[2022-06-18] MEDS ORDERED: Morphine 4mg INJECTION 4 MG/ML INJ ONE (23:18)
[2022-06-19] VITALS (7 sets, daily range): BP systolic 110–128; BP diastolic 69–75
[2022-06-19 00:23] LABS: CREATINE KINASE MB 0.5 ng/mL (0-5.0)
[2022-06-19] MEDS ORDERED: ONDANSETRON HCL INJ 2MG/ML 2ML 2 MG/ML VIAL IV PRN (00:30)
[2022-06-19] MEDS ORDERED: Morphine 4mg INJECTION 4 MG/ML INJ IV PRN (00:30)
[2022-06-19] MEDS ORDERED: ASPIRIN 81 MG CHEW TAB PO ONE (00:30)
[2022-06-19] MEDS ORDERED: FENTANYL CITRATE/PF 100MCG/2 ML INJ IV ONE (00:45)
[2022-06-19] MEDS ORDERED: FENTANYL CITRATE/PF 100MCG/2 ML INJ ONE (00:55)
[2022-06-19] MEDS: SODIUM CHLORIDE 0.9% 1000ML 1,000 ML IV SCH ×3 (02:52→17:02)
[2022-06-19] MEDS ORDERED: ALBUTEROL SULFATE HFA 8GM INHALATION AEROSOL INH PRN (03:30)
[2022-06-19] MEDS ORDERED: CYCLOBENZAPRINE HCL 10 MG TAB PO PRN (03:30)
[2022-06-19] MEDS ORDERED: KETOROLAC TROMETHAMINE 30 MG/ML VIAL IV STA (04:47)
[2022-06-19] MEDS ORDERED: PREDNISONE 10 MG TAB PO SCH (08:00)
[2022-06-19] MEDS ORDERED: FAMOTIDINE 20 MG TAB PO SCH ×2 (09:00→16:30)
[2022-06-19] MEDS ORDERED: CYANOCOBALAMIN 1,000 MCG TAB PO SCH (09:00)
[2022-06-19] MEDS ORDERED: LACTOBACILLUS ACIDOPHILUS CAPSULE PO SCH (09:00)
[2022-06-19] MEDS: DICYCLOMINE HCL 10 MG CAP PO SCH ×2 (10:03→16:08)
[2022-06-19] MEDS: MESALAMINE 400 MG CAP PO SCH ×2 (12:37→16:08)
[2022-06-19 14:52] LABS: CREATINE KINASE MB 0.5 ng/mL (0-5.0)
[2022-06-19] MEDS ORDERED: ULTRAM50 MG PO (18:11)
== END 2022-06-19 19:22 | disposition home or self-care (01) ==
LOC: ER 22:00 → ERHOLD 06-19 00:16 → MED/SURG2 06-19 02:24
PROVIDERS: ADMIT Internal Medicine; ATTEND Internal Medicine
DX: R07.89 Other chest pain (principal); K21.9 Gastro-esophageal reflux disease without esophagitis; Z82.49 Family history of ischemic heart disease and other diseases of the circulatory system; J45.909 Unspecified asthma, uncomplicated; M94.0 Chondrocostal junction syndrome [Tietze]; D64.9 Anemia, unspecified; K52.9 Noninfective gastroenteritis and colitis, unspecified; E66.9 Obesity, unspecified; Z68.32 Body mass index [BMI] 32.0-32.9, adult; Z88.7 Allergy status to serum and vaccine; Z91.040 Latex allergy status; Z87.442 Personal history of urinary calculi; Z20.822 Contact with and (suspected) exposure to COVID-19
CPT/HCPCS: 36415 ×2; 71045; 80053; 80307; 81025; 82550 ×2; 82553 ×2; 83690; 83880; 84484 ×2; 85025; 85379; 93005; 93306; 94799; 99284; G0378; J1885 ×2; J2270 ×2; J2405 ×2; J3010; J3360; J7030; J7512; U0002